=== PATIENT | male | born 1940 | race Caucasian/White ===

== ENCOUNTER 2019-01-08 02:27 | Inpatient (IN) ==
[2019-01-08 03:08] LABS: Basophils # (auto) 0.02 K/uL (0-0.2); Basophils % (auto) 0.3 %; Eosinophils % (auto) 1.5 %; Hematocrit (blood only) 41.9 % (42-52); Hemoglobin 14.8 g/dL (14.0-18.0); Immature Granulocytes # (auto) 0.01 K/uL (0.00-0.02); Immature Granulocytes % (auto) 0.2 %; Lymphocytes % (auto) 25.8 %; Mean Corpuscular Hemoglobin 32.6 pg (25-34); Mean Corpuscular Hgb Conc 35.3 g/dL (32-36); Mean Corpuscular Volume 92.3 fL (80-100); Mean Platelet Volume 10.9 fL (7.4-10.4); Monocytes # (auto) 0.41 K/uL (0.11-0.59); Monocytes % (auto) 6.2 %; Neutrophils # (auto) 4.34 K/uL (1.4-6.5); Platelet Count 177 K/uL (130-400); RDW Coefficient of Variation 14.5 % (11.5-14.5); RDW Standard Deviation 49.1 fL (36.4-46.3); Red Blood Count 4.54 M/uL (4.7-6.1); White Blood Count 6.58 K/uL (4.8-10.8)
[2019-01-08 03:29] LABS: Albumin Level 3.9 gm/dl (3.4-5.0); BUN Creatinine Ratio 12.3 (10-20); Calcium 8.3 mg/dl (8.5-10.1); Creatinine Clr Calc Pharmacy 79.8 ml/min; Est GFR (African American) 85.7; Est GFR (Non-African American) 73.9; Potassium 3.7 mmol/L (3.5-5.1)
[2019-01-08 03:39] LABS: Albumin Globulin Ratio 1.2 (0.9-2); Bilirubin,Total 0.7 mg/dl (0.2-1); Globulin 3.3 gm/dl (2.5-4.0); Thyroid Stimulating Hormone 4.41 uIu/ml (0.300-4.500); Total Protein 7.2 gm/dl (6.4-8.2)
[2019-01-08 03:50] LABS: Acetaminophen < 2 ug/ml (10-30); Salicylate < 1.7 mg/dl (2.8-20)
[2019-01-08 06:26] LABS: Appearance Urine Clear (Clear); Bilirubin Urine Negative (Negative); Blood Urine Negative (Negative); Color Urine Yellow; Glucose Urine UA Negative (Negative); Ketones Urine Negative (Negative); Leukocyte Esterase Urine Negative (Negative); Nitrite Urine Negative (Negative); Protein Urine Negative (Negative); Urobilinogen Urine Negative (Negative)
[2019-01-08 06:50] LABS: Amphetamines+Metham, Urine Neg (Neg); Barbiturates, Urine Neg (Neg); Benzodiazepine, Urine Neg (Neg); Cocaine, Urine Neg (Neg); MDMA (Ecstacy), Urine Neg (Neg); Methadone, Urine Neg (Neg); Opiate, Urine Neg (Neg); Phencyclidine, Urine Neg (Neg)
--- NOTE | 2019-01-08 07:06 | Emergency Department Note ---
Entered by Raymno Gutierrez acting as a scribe for ED Provider Note Name: Jeronimo Nguyen Age: 78 Arrives Via: Taxi Informant: Patient CC: Suicidal ideations HPI: A male arrives for evaluation of suicidal ideations. The patient states he does not want to live anymore. He notes he has not been taking his medications for a couple days. He denies anyone hurting him at home. He states he has been hearing voices. He states he has constant jaw pain for 9 years. He states he drank tonight. He denies drinking everyday and taking drugs. ROS: See above HPI for pertinent positives & negatives. A total of 10 systems reviewed and were otherwise negative. Past Medical History: Depression, Schizophrenia Past Surgical History: No pertinent past surgical history. Family History: Family history non-contributory Social History: Speaks Persian Home Medications: Clopidogrel, Duloxetine Hcl, Lisinopril, Pantoprazole, Quetiapine, Simethicone, Tramadol Allergies Amoxicillin, clindamycin, latex, aspirin, haloperidol, metronidazole, olanzapine, lithium Physical: Vitals: BP 178/107, P 87, R 20, O2 97%, Temp 97.7 Exam: GENERAL: Patient is anxious appearing and in no acute distress. Patient is agitated and has rapid pressured speech. Smells mildly of alcohol. EYES: No scleral icterus, unremarkable pupils. ENT: Mucous membranes moist, no nasal congestion. NECK: No masses appreciated, no meningismus, trachea is midline. RESPIRATORY: No dyspnea. Clear to auscultation and equal bilaterally. No wheeze, no rhonchi. CARDIOVASCULAR: Regular rate and rhythm. No murmurs, rubs, gallops appreciated. GASTROINTESTINAL: Abdomen soft, non-tender, no peritonitis. Bowel sounds positive. No masses appreciated. BACK: No midline tenderness, no CVA tenderness EXTREMITIES: Normal motion all extremities, no cyanosis, no edema. Venous stasis in bilateral legs. NEUROLOGIC: Alert and oriented, no acute motor or sensory deficits, no focal weakness, cranial nerves grossly intact. SKIN: No rash, no jaundice, no diaphoresis. PSYCH: Admits suicidal ideations, hallucinations, and depression. ED Course: Prior Medical Record, Triage/Nursing Notes, Medications, Allergies reviewed by Me Vital Signs: reviewed and remarkable for wnl after calming down Labs: Reviewed and remarkable for wnl Interventions: none Imaging: [facility] Radiologist interpretation reviewed by me: CT Head - Negative EKG: Per My Interpretation: Indication Psych Eval: 72 bpm with afib qtc 448. No previous for comparison. No ischemia appreciated. Blood pressure: Elevated - [place] to be Situation Course: 0233: The patient was evaluated in room A8, and a complete history and physical examination were performed. 0311: I reevaluated the patient. He told me he has a history of A-Fib. 0502: I reevaluated the patient. He is sleeping soundly. 0730: The patient was signed out to Dr. Chauhan. She will further manage the care of the patient. Disposition: Signed out to Dr Chauhan Differentials: Mood Disorder, Overdose, Infectious, Electrolyte Abnormality, Cardiac, Hepatic, Endocrine, Toxicologic, Neurologic, amongst other pathologies Entertained. Medical Decision Makin yr old male with acute agitation, depression and suicidal ideation. He is intoxicated and after a while here fell asleep. Work-up and labs unremarkable. He is in Afib and he states that he is chronically in afib. No on any anticoagulants other than plavix currently. He was signed out to Dr Chauhan pending psych Evaluations. Impression: Alcohol intoxication Acute depression The scribe's documentation has been prepared under my direction and personally reviewed by me in its entirety. I confirm that the note above accurately reflects all work, treatment, procedures, and medical decision making performed by me. Bijan Ivy MD Impression & Plan Alcohol intoxication, Acute depression Past Med/Surg History Medical History Depression Schizophrenia Family History Other Family history non-contributory Social History Feels Safe at Home: Yes Smoking Status: Current some day smoker Results & Data Vital Signs Vital Signs - 24 hr 01/08/19 02:44 01/08/19 04:22 01/08/19 05:40 Temperature 36.5 C Temperature Source Oral Sepsis Recent Fever Within 48 Hours No Sepsis Action Taken by Nursing No Action Required Pulse Rate 87 Pulse Rate [Right Finger] 81 84 Respiratory Rate 20 20 22 Respiratory Effort / Characteristics Non-Labored Respiratory Depth Normal Blood Pressure 178/107 H Blood Pressure [Right Arm] 129/67 131/71 Blood Pressure Mean 130 Blood Pressure Mean [Right Arm] 87 91 Blood Pressure Position [Right Arm] Left Lateral Lying Pulse Oximetry 97 95 94 Oxygen Delivery Method Room Air Room Air Room Air 01/08/19 07:41 Temperature Temperature Source Sepsis Recent Fever Within 48 Hours Sepsis Action Taken by Nursing Pulse Rate Pulse Rate [Right Finger] 101 H Respiratory Rate 24 Respiratory Effort / Characteristics Short of Breath SOB on Exertion Respiratory Depth Blood Pressure Blood Pressure [Right Arm] 179/86 H Blood Pressure Mean Blood Pressure Mean [Right Arm] 117 Blood Pressure Position [Right Arm] Lying Pulse Oximetry 95 Oxygen Delivery Method Room Air Home Medications Current Medication List: was personally reviewed by me Laboratory Data Attestation: I reviewed the patient's lab results. Result diagrams: 01/08/19 02:54 01/08/19 02:54 Lab Results 01/08/19 01/08/19 01/08/19 Range/Units 02:54 02:54 02:54 WBC 6.58 (4.8-10.8) K/uL RBC 4.54 L (4.7-6.1) M/uL Hgb 14.8 (14.0-18.0) g/dL Hct 41.9 L (42-52) % MCV 92.3 (80-100) fL MCH 32.6 (25-34) pg MCHC 35.3 (32-36) g/dL RDW Std Deviation 49.1 H (36.4-46.3) fL RDW Coeff of [place] 14.5 (11.5-14.5) % Plt Count 177 (130-400) K/uL MPV 10.9 H (7.4-10.4) fL Immature Gran % (Auto) 0.2 % Neut % (Auto) 66.0 % Lymph % (Auto) 25.8 % [place] % (Auto) 6.2 % Eos % (Auto) 1.5 % Baso % (Auto) 0.3 % Immature Gran # (Auto) 0.01 (0.00-0.02) K/uL Neut # (Auto) 4.34 (1.4-6.5) K/uL Lymph # (Auto) 1.70 (1.2-3.4) K/uL [place] # (Auto) 0.41 (0.11-0.59) K/uL Eos # (Auto) 0.10 (0-0.5) K/uL Baso # (Auto) 0.02 (0-0.2) K/uL Sodium 137 (136-145) mmol/L Potassium 3.7 (3.5-5.1) mmol/L Chloride 104 (98-107) mmol/L Carbon Dioxide 24 (21-32) mmol/L Anion Gap 9.0 (3-11) BUN 12 (7-18) mg/dl Creatinine 0.97 (0.6-1.4) mg/dl Est Cr Clr Drug Dosing 79.8 ml/min Est GFR ( Amer) 85.7 Est GFR (Non-Af Amer) 73.9 BUN/Creatinine Ratio 12.3 (10-20) Glucose 82 (70-99) mg/dl Calcium 8.3 L (8.5-10.1) mg/dl Total Bilirubin 0.7 (0.2-1) mg/dl AST 25 (15-37) U/L ALT 25 (12-78) U/L Alkaline Phosphatase 107 (45-117) U/L Total Protein 7.2 (6.4-8.2) gm/dl Albumin 3.9 (3.4-5.0) gm/dl Globulin 3.3 (2.5-4.0) gm/dl Albumin/Globulin Ratio 1.2 (0.9-2) TSH 4.410 (0.300-4.500) uIu/ml Urine Color Urine Appearance (Clear) Urine pH (4.5-7.5) Ur Specific [place] (1.000-1.030) Urine Protein (Negative) Urine Glucose (UA) (Negative) Urine Ketones (Negative) Urine Blood (Negative) Urine Nitrite (Negative) Urine Bilirubin (Negative) Urine Urobilinogen (Negative) Ur Leukocyte Esterase (Negative) Salicylates < 1.7 L (2.8-20) mg/dl Urine Opiates Screen (Neg) Ur Methadone, Qual (Neg) Acetaminophen < 2 L (10-30) ug/ml Urine Barbiturates (Neg) Ur Phencyclidine (PCP) (Neg) U Amphetamin/Meth Scrn (Neg) MDMA (Ecstasy) Screen (Neg) U Benzodiazepines Scrn (Neg) Ur Cocaine Metabolite (Neg) U Marijuana (THC) Screen (Neg) Ethyl Alcohol mg/dL (0-3) mg/dl 01/08/19 01/08/19 01/08/19 Range/Units 02:54 05:32 05:32 WBC (4.8-10.8) K/uL RBC (4.7-6.1) M/uL Hgb (14.0-18.0) g/dL Hct (42-52) % MCV (80-100) fL MCH (25-34) pg MCHC (32-36) g/dL RDW Std Deviation (36.4-46.3) fL RDW Coeff of [place] (11.5-14.5) % Plt Count (130-400) K/uL MPV (7.4-10.4) fL Immature Gran % (Auto) % Neut % (Auto) % Lymph % (Auto) % [place] % (Auto) % Eos % (Auto) % Baso % (Auto) % Immature Gran # (Auto) (0.00-0.02) K/uL Neut # (Auto) (1.4-6.5) K/uL Lymph # (Auto) (1.2-3.4) K/uL [place] # (Auto) (0.11-0.59) K/uL Eos # (Auto) (0-0.5) K/uL Baso # (Auto) (0-0.2) K/uL Sodium (136-145) mmol/L Potassium (3.5-5.1) mmol/L Chloride (98-107) mmol/L Carbon Dioxide (21-32) mmol/L Anion Gap (3-11) BUN (7-18) mg/dl Creatinine (0.6-1.4) mg/dl Est Cr Clr Drug Dosing ml/min Est GFR ( Amer) Est GFR (Non-Af Amer) BUN/Creatinine Ratio (10-20) Glucose (70-99) mg/dl Calcium (8.5-10.1) mg/dl Total Bilirubin (0.2-1) mg/dl AST (15-37) U/L ALT (12-78) U/L Alkaline Phosphatase (45-117) U/L Total Protein (6.4-8.2) gm/dl Albumin (3.4-5.0) gm/dl Globulin (2.5-4.0) gm/dl Albumin/Globulin Ratio (0.9-2) TSH (0.300-4.500) uIu/ml Urine Color Yellow Urine Appearance Clear (Clear) Urine pH 5.0 (4.5-7.5) Ur Specific [place] 1.010 (1.000-1.030) Urine Protein Negative (Negative) Urine Glucose (UA) Negative (Negative) Urine Ketones Negative (Negative) Urine Blood Negative (Negative) Urine Nitrite Negative (Negative) Urine Bilirubin Negative (Negative) Urine Urobilinogen Negative (Negative) Ur Leukocyte Esterase Negative (Negative) Salicylates (2.8-20) mg/dl Urine Opiates Screen Neg (Neg) Ur Methadone, Qual Neg (Neg) Acetaminophen (10-30) ug/ml Urine Barbiturates Neg (Neg) Ur Phencyclidine (PCP) Neg (Neg) U Amphetamin/Meth Scrn Neg (Neg) MDMA (Ecstasy) Screen Neg (Neg) U Benzodiazepines Scrn Neg (Neg) Ur Cocaine Metabolite Neg (Neg) U Marijuana (THC) Screen Neg (Neg) Ethyl Alcohol mg/dL 181.0 H (0-3) mg/dl Administered Medications Clopidogrel Bisulfate (Plavix) 75 mg PO [facility] Stop: 02/07/19 08:59 Last Admin: 01/08/19 08:32 Dose: 75 mg Documented by: [id number] Diltiazem HCl (Dilacor Xr) 240 mg PO [facility] Stop: 02/07/19 08:59 Last Admin: 01/08/19 08:31 Dose: 240 mg Documented by: [id number] Losartan Potassium (Cozaar) 100 mg PO [facility] Stop: 02/07/19 08:59 Last Admin: 01/08/19 08:32 Dose: 100 mg Documented by: [id number] Pantoprazole Sodium (Protonix) 40 mg PO [facility] Stop: 02/07/19 08:59 Last Admin: 01/08/19 08:33 Dose: 40 mg Documented by: [id number] Ranitidine HCl (Zantac) 300 mg PO [facility] Stop: 02/07/19 08:59 Last Admin: 01/08/19 08:33 Dose: 300 mg Documented by: [id number] Venlafaxine HCl (Effexor Extended Release) 150 mg PO [facility] Stop: 02/07/19 08:59 Last Admin: 01/08/19 08:32 Dose: 150 mg Documented by: [id number] Medical Decision Making Home Medications Current Medication List: was personally reviewed by me Laboratory Data Attestation: I reviewed the patient's lab results. Result diagrams: 01/08/19 02:54 01/08/19 02:54 Lab Results 01/08/19 01/08/19 01/08/19 Range/Units 02:54 02:54 02:54 WBC 6.58 (4.8-10.8) K/uL RBC 4.54 L (4.7-6.1) M/uL Hgb 14.8 (14.0-18.0) g/dL Hct 41.9 L (42-52) % MCV 92.3 (80-100) fL MCH 32.6 (25-34) pg MCHC 35.3 (32-36) g/dL RDW Std Deviation 49.1 H (36.4-46.3) fL RDW Coeff of [place] 14.5 (11.5-14.5) % Plt Count 177 (130-400) K/uL MPV 10.9 H (7.4-10.4) fL Immature Gran % (Auto) 0.2 % Neut % (Auto) 66.0 % Lymph % (Auto) 25.8 % [place] % (Auto) 6.2 % Eos % (Auto) 1.5 % Baso % (Auto) 0.3 % Immature Gran # (Auto) 0.01 (0.00-0.02) K/uL Neut # (Auto) 4.34 (1.4-6.5) K/uL Lymph # (Auto) 1.70 (1.2-3.4) K/uL [place] # (Auto) 0.41 (0.11-0.59) K/uL Eos # (Auto) 0.10 (0-0.5) K/uL Baso # (Auto) 0.02 (0-0.2) K/uL Sodium 137 (136-145) mmol/L Potassium 3.7 (3.5-5.1) mmol/L Chloride 104 (98-107) mmol/L Carbon Dioxide 24 (21-32) mmol/L Anion Gap 9.0 (3-11) BUN 12 (7-18) mg/dl Creatinine 0.97 (0.6-1.4) mg/dl Est Cr Clr Drug Dosing 79.8 ml/min Est GFR ( Amer) 85.7 Est GFR (Non-Af Amer) 73.9 BUN/Creatinine Ratio 12.3 (10-20) Glucose 82 (70-99) mg/dl Calcium 8.3 L (8.5-10.1) mg/dl Total Bilirubin 0.7 (0.2-1) mg/dl AST 25 (15-37) U/L ALT 25 (12-78) U/L Alkaline Phosphatase 107 (45-117) U/L Total Protein 7.2 (6.4-8.2) gm/dl Albumin 3.9 (3.4-5.0) gm/dl Globulin 3.3 (2.5-4.0) gm/dl Albumin/Globulin Ratio 1.2 (0.9-2) TSH 4.410 (0.300-4.500) uIu/ml Urine Color Urine Appearance (Clear) Urine pH (4.5-7.5) Ur Specific [place] (1.000-1.030) Urine Protein (Negative) Urine Glucose (UA) (Negative) Urine Ketones (Negative) Urine Blood (Negative) Urine Nitrite (Negative) Urine Bilirubin (Negative) Urine Urobilinogen (Negative) Ur Leukocyte Esterase (Negative) Salicylates < 1.7 L (2.8-20) mg/dl Urine Opiates Screen (Neg) Ur Methadone, Qual (Neg) Acetaminophen < 2 L (10-30) ug/ml Urine Barbiturates (Neg) Ur Phencyclidine (PCP) (Neg) U Amphetamin/Meth Scrn (Neg) MDMA (Ecstasy) Screen (Neg) U Benzodiazepines Scrn (Neg) Ur Cocaine Metabolite (Neg) U Marijuana (THC) Screen (Neg) Ethyl Alcohol mg/dL (0-3) mg/dl 01/08/19 01/08/19 01/08/19 Range/Units 02:54 05:32 05:32 WBC (4.8-10.8) K/uL RBC (4.7-6.1) M/uL Hgb (14.0-18.0) g/dL Hct (42-52) % MCV (80-100) fL MCH (25-34) pg MCHC (32-36) g/dL RDW Std Deviation (36.4-46.3) fL RDW Coeff of [place] (11.5-14.5) % Plt Count (130-400) K/uL MPV (7.4-10.4) fL Immature Gran % (Auto) % Neut % (Auto) % Lymph % (Auto) % [place] % (Auto) % Eos % (Auto) % Baso % (Auto) % Immature Gran # (Auto) (0.00-0.02) K/uL Neut # (Auto) (1.4-6.5) K/uL Lymph # (Auto) (1.2-3.4) K/uL [place] # (Auto) (0.11-0.59) K/uL Eos # (Auto) (0-0.5) K/uL Baso # (Auto) (0-0.2) K/uL Sodium (136-145) mmol/L Potassium (3.5-5.1) mmol/L Chloride (98-107) mmol/L Carbon Dioxide (21-32) mmol/L Anion Gap (3-11) BUN (7-18) mg/dl Creatinine (0.6-1.4) mg/dl Est Cr Clr Drug Dosing ml/min Est GFR ( Amer) Est GFR (Non-Af Amer) BUN/Creatinine Ratio (10-20) Glucose (70-99) mg/dl Calcium (8.5-10.1) mg/dl Total Bilirubin (0.2-1) mg/dl AST (15-37) U/L ALT (12-78) U/L Alkaline Phosphatase (45-117) U/L Total Protein (6.4-8.2) gm/dl Albumin (3.4-5.0) gm/dl Globulin (2.5-4.0) gm/dl Albumin/Globulin Ratio (0.9-2) TSH (0.300-4.500) uIu/ml Urine Color Yellow Urine Appearance Clear (Clear) Urine pH 5.0 (4.5-7.5) Ur Specific [place] 1.010 (1.000-1.030) Urine Protein Negative (Negative) Urine Glucose (UA) Negative (Negative) Urine Ketones Negative (Negative) Urine Blood Negative (Negative) Urine Nitrite Negative (Negative) Urine Bilirubin Negative (Negative) Urine Urobilinogen Negative (Negative) Ur Leukocyte Esterase Negative (Negative) Salicylates (2.8-20) mg/dl Urine Opiates Screen Neg (Neg) Ur Methadone, Qual Neg (Neg) Acetaminophen (10-30) ug/ml Urine Barbiturates Neg (Neg) Ur Phencyclidine (PCP) Neg (Neg) U Amphetamin/Meth Scrn Neg (Neg) MDMA (Ecstasy) Screen Neg (Neg) U Benzodiazepines Scrn Neg (Neg) Ur Cocaine Metabolite Neg (Neg) U Marijuana (THC) Screen Neg (Neg) Ethyl Alcohol mg/dL 181.0 H (0-3) mg/dl MDM Narrative Discharge Plan Visit Data Chief Complaint: Mental Health Evaluation Stated Complaint: MENTAL PROBLEM ED Provider: Bijan Ivy Discharge Problem: Alcohol intoxication, Acute depression Forms Stand Alone Forms: My [facility], Suicide Prevention Resources Prescriptions Prescriptions: No Action ranitidine HCl 300 mg tablet 300 mg PO DAILY RF: 0 diltiazem HCl [Cartia XT] 240 mg capsule,extended release 24hr 240 mg PO DAILY RF: 0 venlafaxine 150 mg capsule,extended release 24hr 150 mg PO DAILY RF: 0 clopidogrel 75 mg tablet 75 mg PO DAILY RF: 0 pantoprazole 40 mg tablet,delayed release (DR/EC) 40 mg PO DAILY RF: 0 losartan 100 mg tablet 100 mg PO DAILY RF: 0 quetiapine 400 mg tablet 400 mg PO HS RF: 0 Discharge Problem: Alcohol intoxication Qualifiers: Complication of substance-induced condition: with unspecified complication Qualified Code(s): F10.929 - Alcohol use, unspecified with intoxication, unspecified The scribe's documentation has been prepared under my direction and personally reviewed by me in its entirety. I confirm that the note above accurately reflects all work, treatment, procedures, and medical decision making performed by me.
[2019-01-08 07:42] VITALS: O2SAT 95
--- NOTE | 2019-01-08 08:32 | CT Scan Report ---
CT SCAN OF THE BRAIN WITHOUT IV CONTRAST CLINICAL HISTORY: Depression. Hallucinations. Suicidal ideation. COMPARISON STUDY: No priors. TECHNIQUE: Unenhanced axial CT scan of the brain is performed from the vertex to the skull base. A do se lowering technique was utilized adhering to the principles of ALARA. The patient was scanned twice due to motion artifact. CT DOSE: 1534.13 mGy.cm FINDINGS: Brain parenchyma: There are age-related involutional changes noting moderate subcortical and periven tricular microangiopathic change. There is no hemorrhage, mass effect, or evidence of acute territori al ischemia by CT criteria. Alfonso-white matter differentiation is preserved. No extra-axial fluid angel ection is seen. Ventricles, sulci, cisterns: Prominent secondary to involutional change. Intracranial vasculature: There is atherosclerotic calcification of the cavernous carotid arteries. Calvarium: The calvarium appears intact. Deformity of the nasal bones suggests remote trauma. Sinuses and mastoids: There is a 10 mm retention cyst in the left maxillary antrum. The remaining vis ualized paranasal sinuses are clear. The mastoid air cells are well pneumatized. Orbits: The bony orbits are grossly intact. The left globe is markedly atrophic. IMPRESSION: There is no hemorrhage, mass effect, or evidence of acute territorial ischemia by CT crit virgil noting a motion compromised examination. Electronically signed by: Julio Morfin M.D. 01/08/2019 8:31 AM
[2019-01-08] MEDS ORDERED: VENLAFAXINE HCL XR 150 MG CAPXR PO SCH (09:00)
[2019-01-08] MEDS ORDERED: PANTOprazole 40 MG TAB PO SCH (09:00)
[2019-01-08] MEDS ORDERED: CLOPIDOGREL BISULFATE 75 MG TAB PO SCH (09:00)
[2019-01-08] MEDS ORDERED: LOSARTAN POTASSIUM 50 MG TAB PO SCH (09:00)
[2019-01-08] MEDS ORDERED: SODIUM CHLORIDE 0.65% NA SOLN 45 ML (OCEAN) PRN (10:51)
[2019-01-08] MEDS ORDERED: ACETAMINOPHEN 325 MG TAB PO PRN (10:51)
[2019-01-08] MEDS ORDERED: MAGNESIUM HYDROXIDE SUSP 30 ML UDC PO PRN (10:51)
[2019-01-08] MEDS ORDERED: ALUMINUM/MAGNESIUM SUSP 30 ML UDC PO PRN (10:51)
--- NOTE | 2019-01-08 11:32 | Consultation ---
Date of Consultation January 08, 2019 Assessment & Plan (1) Chronic atrial fibrillation: has had afib for over a year continue on Diltiazem 240mg daily for rate control, rates in 70's in the ED continue on Plavix 75mg daily recommend that he follow up with his PCP after discharge from [facility] overall he is stable at this time for admission to [facility] there is no reason at this time to follow him daily do not hesitate to contact hospitalist group if his medical status changes at all (2) Hypertension: continue on Diltiazem and Losartan BMP shows renal function stable (3) Schizophrenia: management per psychiatry (4) Depression: with suicidal ideation, agreeable to inpatient psychiatry treatment (5) Loose stools: just started, perhaps due to alcohol intoxication would monitor for now could use Imodium PRN (6) GERD (gastroesophageal reflux disease): continue Protonix and Ranitidine History of Present Illness Requesting Physician: Dr. Pratt Reason for Consultation: Atrial fibrillation, medical management Attending Physician: Dr. Pratt History of Present Illness 78 yo male with history of schizoaffective disorder, not from this area, arrived to the ED via taxi because he needed help. He was complaining of suicidal ideation, had not been taking his medications. He was worked up in the ED with CT head that was normal and BMP, CBC that were normal. He was considered an appropriate admission for inpatient behavioral health. EKG showed that he was in atrial fibrillation. Request made by psychiatry to see the patient prior to their admission to ensure that he is medically stable. The patient says that he has felt fine physically the past few days, no major changes. His main complaints are all psychological. He is a reasonable historian. He says that he was diagnosed with atrial fibrillation about a year ago. He does not have a strategic communications manager in the [facility] that he follows with. He sees a PCP with the [facility]. He is rate controlled on Diltiazem. EKG shows rate in the 70's. He takes Plavix for a history of s troke. Given his history of stroke and age it would be reasonable to expect him to be on systemic anticoagulation. He says that he has never been on a blood thinner to his knowledge. Certainly there may be a reason for him to not be on one but I do not have access to his records. Given his medication list it is also clear that he has a history of GERD and HTN. He says his appetite has been a little diminished recently with his poor mood. His weight has been stable. He denies having any chest pain or pressure, no dyspnea, no palpitations. No abdominal pain, no nausea, he says that he had some loose stools this morning but otherwise he has been moving bowels regularly. No rashes or other skin complaints. He is agreeable to being admitted to behavioral health and overall was pleasant and cooperative during my visit. Allergies Allergy/AdvReac Type Severity Reaction Status Date / Time amoxicillin Allergy Mild RASH Verified 01/08/19 04:05 clindamycin Allergy Mild RASH Verified 01/08/19 04:05 latex Allergy Mild RASH Verified 01/08/19 04:05 aspirin Allergy Unknown Unknown Verified 01/08/19 04:05 Penicillins Allergy Unknown RASH FROM Verified 01/08/19 04:05 AMOXICILLIN, BUT PCN IS OK haloperidol AdvReac Intermediate PT STATES Verified 01/08/19 04:05 HE LOCKS UP metronidazole AdvReac Mild ABDOM PAIN Verified 01/08/19 04:05 &CRAMPS olanzapine AdvReac Mild PANCREATITI Verified 01/08/19 04:05 S lithium AdvReac Unknown SENSITIVE Verified 01/08/19 04:05 TO IT BECOMES TOXIC Home Medications Home Medications Medication Instructions Recorded Confirmed Type clopidogrel 75 mg PO DAILY 01/08/19 01/08/19 History diltiazem HCl [Cartia XT] 240 mg PO DAILY 01/08/19 01/08/19 History losartan 100 mg PO DAILY 01/08/19 01/08/19 History pantoprazole 40 mg PO DAILY 01/08/19 01/08/19 History quetiapine 400 mg PO HS 01/08/19 01/08/19 History ranitidine HCl 300 mg PO DAILY 01/08/19 01/08/19 History venlafaxine 150 mg PO DAILY 01/08/19 01/08/19 History Patient History Medical History Chronic atrial fibrillation Depression GERD (gastroesophageal reflux disease) Hypertension Loose stools Schizophrenia Suicidal ideation Family History Other Family history non-contributory Social History Feels Safe at Home: Yes Smoking Status: Current some day smoker Review of Systems Review of Systems: All systems reviewed & are unremarkable except as noted in HPI & below Psychiatric: + depression, + suicidal ideation and + anxiety Physical Exam Constitutional: WD/WN, vitals as above + overweight Eyes: PERRL, conjunctivae normal, anicteric sclerae ENMT: external ear and nose normal, oropharynx normal Neck: trachea midline, no thyromegaly Respiratory: normal respiratory effort, lungs clear to auscultation Cardiovascular: Rate/Rhythm: regular rate and + irregularly irregular Heart Sounds: normal S1 and normal S2; no murmur Extremities: normal capillary refill; no edema Gastrointestinal (Abdomen): normal bowel sounds, soft, nontender, no hepatosplenomegaly Musculoskeletal: no cyanosis or clubbing, extremities motor strength 5/5 Skin: no rashes, warm and dry Neurologic: patellar DTR's 2+ bilat, sensation intact and PERRL, EOMI, accommodation nl, no face palsy, no dysarthria (some muscle twitching periodically) Psychiatric: Orientation: alert, oriented x 3 and cooperative Apperance: + disheveled Eye Contact: + fair eye contact Speech: normal rate/rhythm/volume of speech Affect: + depressed affect Mood: + depressed mood Lymphatic: no cervical or axillary lymphadenopathy Results & Data Vital Signs (Past 12 Hours) Vital Signs Temp Pulse Pulse Resp BP BP Pulse Ox 01/08/19 10:24 85 22 149/75 H 95 01/08/19 07:41 101 H 24 179/86 H 95 01/08/19 05:40 84 22 131/71 94 01/08/19 04:22 81 20 129/67 95 01/08/19 02:44 36.5 C 87 20 178/107 H 97 Laboratory Results Laboratory Results - last 24 hr 01/08/19 01/08/19 01/08/19 02:54 02:54 02:54 WBC 6.58 RBC 4.54 L Hgb 14.8 Hct 41.9 L MCV 92.3 MCH 32.6 MCHC 35.3 RDW Std Deviation 49.1 H RDW Coeff of Hayden 14.5 Plt Count 177 MPV 10.9 H Immature Gran % (Auto) 0.2 Neut % (Auto) 66.0 Lymph % (Auto) 25.8 Pershing % (Auto) 6.2 Eos % (Auto) 1.5 Baso % (Auto) 0.3 Immature Gran # (Auto) 0.01 Neut # (Auto) 4.34 Lymph # (Auto) 1.70 Pershing # (Auto) 0.41 Eos # (Auto) 0.10 Baso # (Auto) 0.02 Sodium 137 Potassium 3.7 Chloride 104 Carbon Dioxide 24 Anion Gap 9.0 BUN 12 Creatinine 0.97 Est Cr Clr Drug Dosing 79.8 Est GFR ( Amer) 85.7 Est GFR (Non-Af Amer) 73.9 BUN/Creatinine Ratio 12.3 Glucose 82 Calcium 8.3 L Total Bilirubin 0.7 AST 25 ALT 25 Alkaline Phosphatase 107 Total Protein 7.2 Albumin 3.9 Globulin 3.3 Albumin/Globulin Ratio 1.2 TSH 4.410 Urine Color Urine Appearance Urine pH Ur Specific [place] Urine Protein Urine Glucose (UA) Urine Ketones Urine Blood Urine Nitrite Urine Bilirubin Urine Urobilinogen Ur Leukocyte Esterase Salicylates < 1.7 L Urine Opiates Screen Ur Methadone, Qual Acetaminophen < 2 L Urine Barbiturates Ur Phencyclidine (PCP) U Amphetamin/Meth Scrn MDMA (Ecstasy) Screen U Benzodiazepines Scrn Ur Cocaine Metabolite U Marijuana (THC) Screen Ethyl Alcohol mg/dL 01/08/19 01/08/19 01/08/19 02:54 05:32 05:32 WBC RBC Hgb Hct MCV MCH MCHC RDW Std Deviation RDW Coeff of Hayden Plt Count MPV Immature Gran % (Auto) Neut % (Auto) Lymph % (Auto) Pershing % (Auto) Eos % (Auto) Baso % (Auto) Immature Gran # (Auto) Neut # (Auto) Lymph # (Auto) [place]hing # (Auto) Eos # (Auto) Baso # (Auto) Sodium Potassium Chloride Carbon Dioxide Anion Gap BUN Creatinine Est Cr Clr Drug Dosing Est GFR ( Amer) Est GFR (Non-Af Amer) BUN/Creatinine Ratio Glucose Calcium Total Bilirubin AST ALT Alkaline Phosphatase Total Protein Albumin Globulin Albumin/Globulin Ratio TSH Urine Color Yellow Urine Appearance Clear Urine pH 5.0 Ur Specific [place] 1.010 Urine Protein Negative Urine Glucose (UA) Negative Urine Ketones Negative Urine Blood Negative Urine Nitrite Negative Urine Bilirubin Negative Urine Urobilinogen Negative Ur Leukocyte Esterase Negative Salicylates Urine Opiates Screen Neg Ur Methadone, Qual Neg Acetaminophen Urine Barbiturates Neg Ur Phencyclidine (PCP) Neg U Amphetamin/Meth Scrn Neg MDMA (Ecstasy) Screen Neg U Benzodiazepines Scrn Neg Ur Cocaine Metabolite Neg U Marijuana (THC) Screen Neg Ethyl Alcohol mg/dL 181.0 H Medications Administered Current Inpatient Medications Acetaminophen (Tylenol) 650 mg PO Q4H PRN PRN Reason: Headache or Minor Fever Stop: 02/07/19 10:50 Al Hydrox/Mg Hydrox/Simethicone (Maalox) 30 ml PO Q4H PRN PRN Reason: GI Upset Stop: 02/07/19 10:50 Clopidogrel Bisulfate (Plavix) 75 mg PO DAILY LANDON Stop: 02/08/19 08:59 Diltiazem HCl (Cardizem Cd) 240 mg PO DAILY LANDON Stop: 02/08/19 08:59 Hydroxyzine HCl (Vistaril) 25 mg PO Q4H PRN PRN Reason: Anxiety Stop: 02/07/19 10:50 Hydroxyzine HCl (Vistaril) 50 mg PO HSZ PRN PRN Reason: Insomnia Stop: 02/07/19 10:50 Losartan Potassium (Cozaar) 100 mg PO DAILY LANDON Stop: 02/08/19 08:59 Magnesium Hydroxide (Milk Of Magnesia) 30 ml PO DAILY PRN PRN Reason: Constipation Stop: 02/07/19 10:50 Pantoprazole Sodium (Protonix) 40 mg PO DAILY LANDON Stop: 02/08/19 08:59 Quetiapine Fumarate (Seroquel) 400 mg PO HS LANDON Stop: 02/07/19 20:59 Ranitidine HCl (Zantac) 300 mg PO DAILY LANDON Stop: 02/08/19 08:59 Sodium Chloride ([place] Nasal) 1 - 2 sprays NA PRN PRN PRN Reason: Nasal Dryness/Congestion Stop: 02/07/19 10:50 Venlafaxine HCl (Effexor Extended Release) 150 mg PO DAILY LANDON Stop: 02/08/19 08:59 PG Care Time/CCT Total # of Minutes Spent Total Time Spent: 35 Total Time Spent with Patient: Total time spent is greater than 50% in coordination of care (as documented) at patient's floor/unit and/or counseling patient: Critical Care Time: No
[2019-01-08] MEDS ORDERED: GABAPENTIN 800MG ALCOHOL WITHDRAWAL LOAD PO STA (12:02)
[2019-01-08] MEDS ORDERED: GABAPENTIN 600MG ALCOHOL WITHDRAWAL LOAD PO STA (12:02)
[2019-01-08] MEDS ORDERED: LORazepam 1 MG TAB PO PRN (12:02)
[2019-01-08] MEDS ORDERED: GABAPENTIN 600 MG TAB PO ONE (12:02)
--- NOTE | 2019-01-08 12:45 | History & Physical ---
Date of Service January 08, 2019 Impression / Recommendations (1) Schizoaffective disorder: 01/08 The patient was admitted to the [facility] ([facility]) on q15 min checks (behavioral with suicide precautions) for safety. The patient will participate in group, recreational, and milieu therapies and will be offered additional individual and family sessions as clinically appropriate. Risks/benefits/alternatives were reviewed re: antipsychotics for mood and/or psychosis. Discussion included but was not limited to metabolic side effects, risks of TD and suicidal thoughts. Abnormal motor movements at baseline. Hold order for fasting glucose and lipid panel ordered for baseline monitoring as reports having multiple in past 6 months. Restart Seroquel 200 mg this hs and monitor movements. Continue Effexor XR 150 mg qam, already received dose in ED and desires to start at previous dose rather than retitrate. (2) Alcohol intoxication: 01/08--Brief intervention was offered and accepted. Intervention was greater than 5 min in length and included assessing readiness to quit, advice on how to reduce or abstain from alcohol, and to set a specific goal for this hospitalization. mud jack nozzle worker will also assist in anticipating barriers to sobriety and in problem-solving for solutions to those problems while arranging for referral to appropriate treatment. The patient reports he does not drink when stable on his medications which he came here to resume. He plans to continue with , states he does not have a sponsor. The patient is advised to abstain from alcohol consumption due to depressant effects and risk of interaction with prescription medications. AWSS protocol with lowest loading dose of Neurontin as I do not want sedation to impair gait further than abnormal motor movements already are. Complication of substance-induced condition: with unspecified complication Qualified Code(s): F10.929 - Alcohol use, unspecified with intoxication, unspecified Risk Factors Assessment Do You Have Access To A Gun?: No Protective Factors Assessment Employed: No Psychiatric History Identifying Data GRACY PAREDES is a 78-year-old M who currently lives in [facility] alone, has a history of schizoaffective disorder and multiple psychiatric admissions, and was admitted on 01/08/19 11:22 on a 201 voluntary commitment for [facility]. Chief Complaint "I didn't take meds for 5 days and then I had a lot of beer, now I hear a man's voice to harm myself". History of Present Illness Patient last admitted to [facility] in 2009. He reports last psych admission for jayshree was 2 months ago at [facility] as no hospital bed in [facility]. He states that he ran out of medication 5 days ago, seemingly as missed sessions with [facility] as "I don't like the tv doctor", referring to telepsych. He is between case mgr and it's unclear how well he has been attending to his physical health. He denies drinking regularly but estimates he ingested 20 beers in the last 2 days. He describes some feelings of isolation as only 1 friend in [place] and sister doesn't talk to him for some time. He reports taking bus to [place] [employer] for something to do and relapsing on ETOH, longest period of sobriety is "a few months". He understands that his medical meds are important given dx of a fib within the past year but was non-compliant with those meds as well. He was tachy and elevated BP on presentation to the ED, medical work up was benign and Dr. Phelan cleared him as well prior to arrival on the unit since rate controlled and resuming medications. He states that for past few days he hears a man's voice telling him to harm himself but is clear that he is not depressed and doesn't want to act on those thoughts. He has significant restlessness, likely Parkinsonian or mild TD at baseline with superimposed withdrawal dyskinesia though he attributes some of the tremor to ETOH. He describes a rather remote hx of DTs around "11/16" at which time he was hospitalized for delirium at [facility] on urgent transfer from rehab at [place]. Past Psychiatric History Previous Psych History: >50 hospitalizations, 3 prior [facility], most recent as above patients states current meds were working well until he discontinued them and is unable to relate past med trials. Last stay 2009 he was on Cymbalta and Seroquel so unlikely meds have been changed for some time. 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, needs replaced Allergies Allergy/AdvReac Type Severity Reaction Status Date / Time amoxicillin Allergy Mild RASH Verified 01/08/19 04:05 clindamycin Allergy Mild RASH Verified 01/08/19 04:05 latex Allergy Mild RASH Verified 01/08/19 04:05 aspirin Allergy Unknown Unknown Verified 01/08/19 04:05 Penicillins Allergy Unknown RASH FROM Verified 01/08/19 04:05 AMOXICILLIN, BUT PCN IS OK haloperidol AdvReac Intermediate PT STATES Verified 01/08/19 04:05 HE LOCKS UP metronidazole AdvReac Mild ABDOM PAIN Verified 01/08/19 04:05 &CRAMPS olanzapine AdvReac Mild PANCREATITI Verified 01/08/19 04:05 S lithium AdvReac Unknown SENSITIVE Verified 01/08/19 04:05 TO IT BECOMES TOXIC Home Medications Home Medications Medication Instructions Recorded Confirmed Type clopidogrel 75 mg PO DAILY 01/08/19 01/08/19 History diltiazem HCl [Cartia XT] 240 mg PO DAILY 01/08/19 01/08/19 History losartan 100 mg PO DAILY 01/08/19 01/08/19 History pantoprazole 40 mg PO DAILY 01/08/19 01/08/19 History quetiapine 400 mg PO HS 01/08/19 01/08/19 History ranitidine HCl 300 mg PO DAILY 01/08/19 01/08/19 History venlafaxine 150 mg PO DAILY 01/08/19 01/08/19 History Family History Family Mental Health History Comment: schizophrenia in mother by previous record Alcohol History Hx of Alcohol Use Over the Past 12 Months: Yes (drinking yesterday, states he "seldom" drinks) Smoking Use Smoking Status: Current some day smoker Substance History Hx of Prescription Med Misuse Over the Past 12 Months: No Hx of Over the Counter Med Misuse Over the Past 12 Months: No Hx of Inhalent Misuse Over the Past 12 Months: No Hx of Organic Substance Use Over the Past 12 Months: No Hx of Illegal Substances/Street Drug Use Over Past 12 Months: No Personal History Living Arrangements: Apartment Highest Grade Completed: High School Graduate Employment Status: Disabled Marital Status: Single Number Of Children: none Current Legal Problems: No Hx Traumatic Life Events: No Patient History Medical History Chronic atrial fibrillation Depression GERD (gastroesophageal reflux disease) Hypertension Loose stools Schizophrenia Suicidal ideation Family History Other Family history non-contributory Social History Feels Safe at Home: Yes Smoking Status: Current some day smoker Review of Systems Review of Systems: All systems reviewed & are unremarkable except as noted in HPI & below 2 loose stools Physical Exam Mental Examination: A physical exam was performed in the ED by Dr. Chauhan and Dr. Phelan for the purposes of medical clearance. I accept that physical as correct and adequate for the purposes of the inpatient physical exam. Psychiatric: Orientation: alert Apperance: appeared stated age Eye Contact: + fair eye contact Motor Behavior: + tremor dyskinesia (oral and lower extremity) poorly articulated Affect: + anxious affect Mood: + depr essed mood Thought Process: + circumstantial thought process and + concrete thought process Thought Content: + preoccupation; no delusions Suicidal Thoughts: denies suicidal thoughts Homicidal Thoughts: denies homicidal thoughts Hallucinations: + auditory hallucinations (command to harm self, able to self control) Cognition: + remote memory not intact Estimated Intelligence: consistent with education level Insight: + limited insight Judgement: + limited judgement Vital Signs (Past 24 Hours): Last Vital Signs Temp 36.5 C 01/08/19 02:44 Pulse 85 01/08/19 10:24 Resp 22 01/08/19 10:24 BP 149/75 H 01/08/19 10:24 Pulse Ox 95 01/08/19 10:24 Results & Data Laboratory Results Laboratory Results - last 24 hr 01/08/19 01/08/19 01/08/19 02:54 02:54 02:54 WBC 6.58 RBC 4.54 L Hgb 14.8 Hct 41.9 L MCV 92.3 MCH 32.6 MCHC 35.3 RDW Std Deviation 49.1 H RDW Coeff of Hayden 14.5 Plt Count 177 MPV 10.9 H Immature Gran % (Auto) 0.2 Neut % (Auto) 66.0 Lymph % (Auto) 25.8 [place] % (Auto) 6.2 Eos % (Auto) 1.5 Baso % (Auto) 0.3 Immature Gran # (Auto) 0.01 Neut # (Auto) 4.34 Lymph # (Auto) 1.70 [place] # (Auto) 0.41 Eos # (Auto) 0.10 Baso # (Auto) 0.02 Sodium 137 Potassium 3.7 Chloride 104 Carbon Dioxide 24 Anion Gap 9.0 BUN 12 Creatinine 0.97 Est Cr Clr Drug Dosing 79.8 Est GFR ( Amer) 85.7 Est GFR (Non-Af Amer) 73.9 BUN/Creatinine Ratio 12.3 Glucose 82 Calcium 8.3 L Total Bilirubin 0.7 AST 25 ALT 25 Alkaline Phosphatase 107 Total Protein 7.2 Albumin 3.9 Globulin 3.3 Albumin/Globulin Ratio 1.2 Folate TSH 4.410 Urine Color Urine Appearance Urine pH Ur Specific [place] Urine Protein Urine Glucose (UA) Urine Ketones Urine Blood Urine Nitrite Urine Bilirubin Urine Urobilinogen Ur Leukocyte Esterase Salicylates < 1.7 L Urine Opiates Screen Ur Methadone, Qual Acetaminophen < 2 L Urine Barbiturates Ur Phencyclidine (PCP) U Amphetamin/Meth Scrn MDMA (Ecstasy) Screen U Benzodiazepines Scrn Ur Cocaine Metabolite U Marijuana (THC) Screen Ethyl Alcohol mg/dL 01/08/19 01/08/19 01/08/19 02:54 05:32 05:32 WBC RBC Hgb Hct MCV MCH MCHC RDW Std Deviation RDW Coeff of Hayden Plt Count MPV Immature Gran % (Auto) Neut % (Auto) Lymph % (Auto) [place] % (Auto) Eos % (Auto) Baso % (Auto) Immature Gran # (Auto) Neut # (Auto) Lymph # (Auto) [place] # (Auto) Eos # (Auto) Baso # (Auto) Sodium Potassium Chloride Carbon Dioxide Anion Gap BUN Creatinine Est Cr Clr Drug Dosing Est GFR ( Amer) Est GFR (Non-Af Amer) BUN/Creatinine Ratio Glucose Calcium Total Bilirubin AST ALT Alkaline Phosphatase Total Protein Albumin Globulin Albumin/Globulin Ratio Folate TSH Urine Color Yellow Urine Appearance Clear Urine pH 5.0 Ur Specific [place] 1.010 Urine Protein Negative Urine Glucose (UA) Negative Urine Ketones Negative Urine Blood Negative Urine Nitrite Negative Urine Bilirubin Negative Urine Urobilinogen Negative Ur Leukocyte Esterase Negative Salicylates Urine Opiates Screen Neg Ur Methadone, Qual Neg Acetaminophen Urine Barbiturates Neg Ur Phencyclidine (PCP) Neg U Amphetamin/Meth Scrn Neg MDMA (Ecstasy) Screen Neg U Benzodiazepines Scrn Neg Ur Cocaine Metabolite Neg U Marijuana (THC) Screen Neg Ethyl Alcohol mg/dL 181.0 H 01/08/19 12:12 WBC RBC Hgb Hct MCV MCH MCHC RDW Std Deviation RDW Coeff of Hayden Plt Count MPV Immature Gran % (Auto) Neut % (Auto) Lymph % (Auto) Coles % (Auto) Eos % (Auto) Baso % (Auto) Immature Gran # (Auto) Neut # (Auto) Lymph # (Auto) Coles # (Auto) Eos # (Auto) Baso # (Auto) Sodium Potassium Chloride Carbon Dioxide Anion Gap BUN Creatinine Est Cr Clr Drug Dosing Est GFR ( Amer) Est GFR (Non-Af Amer) BUN/Creatinine Ratio Glucose Calcium Total Bilirubin AST ALT Alkaline Phosphatase Total Protein Albumin Globulin Albumin/Globulin Ratio Folate Pending TSH Urine Color Urine Appearance Urine pH Ur Specific [place] Urine Protein Urine Glucose (UA) Urine Ketones Urine Blood Urine Nitrite Urine Bilirubin Urine Urobilinogen Ur Leukocyte Esterase Salicylates Urine Opiates Screen Ur Methadone, Qual Acetaminophen Urine Barbiturates Ur Phencyclidine (PCP) U Amphetamin/Meth Scrn MDMA (Ecstasy) Screen U Benzodiazepines Scrn Ur Cocaine Metabolite U Marijuana (THC) Screen Ethyl Alcohol mg/dL Current Inpatient Medications Current Inpatient Medications: Current Inpatient Medications Acetaminophen (Tylenol) 650 mg PO Q4H PRN PRN Reason: Headache or Minor Fever Stop: 02/07/19 10:50 Al Hydrox/Mg Hydrox/Simethicone (Maalox) 30 ml PO Q4H PRN PRN Reason: GI Upset Stop: 02/07/19 10:50 Clopidogrel Bisulfate (Plavix) 75 mg PO DAILY LANDON Stop: 02/08/19 08:59 Diltiazem HCl (Cardizem Cd) 240 mg PO DAILY LANDON Stop: 02/08/19 08:59 Gabapentin (Gabapentin 800mg Alcohol Withdrawal Load) 1 ea PO NOW STA; Protocol Stop: 01/08/19 12:03 Gabapentin (Neurontin) 100 mg PO Q6H LANDON Stop: 01/09/19 00:05 Gabapentin (Neurontin) 200 mg PO Q24H LANDON Stop: 01/11/19 12:03 Gabapentin (Neurontin) 600 mg PO NOW ONE Stop: 01/08/19 12:03 Gabapentin (Neurontin) 600 mg PO Q24H LANDON Stop: 01/09/19 12:03 Gabapentin (Gabapentin 600mg Alcohol Withdrawal Load) 1 ea PO NOW STA; Protocol Stop: 01/08/19 12:03 Gabapentin (Neurontin) 400 mg PO Q24H LANDON Stop: 01/10/19 12:03 Hydroxyzine HCl (Vistaril) 25 mg PO Q4H PRN PRN Reason: Anxiety Stop: 02/07/19 10:50 Hydroxyzine HCl (Vistaril) 50 mg PO HSZ PRN PRN Reason: Insomnia Stop: 02/07/19 10:50 Lorazepam (Ativan) 1 mg PO ONE PRN; Protocol PRN Reason: EtoH Withdrawal AWSS 6-10 Losartan Potassium (Cozaar) 100 mg PO DAILY LANDON Stop: 02/08/19 08:59 Magnesium Hydroxide (Milk Of Magnesia) 30 ml PO DAILY PRN PRN Reason: Constipation Stop: 02/07/19 10:50 Pantoprazole Sodium (Protonix) 40 mg PO DAILY LANDON Stop: 02/08/19 08:59 Quetiapine Fumarate (Seroquel) 200 mg PO HS [place] Stop: 02/07/19 21:59 Ranitidine HCl (Zantac) 300 mg PO DAILY LANDON Stop: 02/08/19 08:59 Sodium Chloride ([place] Nasal) 1 - 2 sprays NA PRN PRN PRN Reason: Nasal Dryness/Congestion Stop: 02/07/19 10:50 Venlafaxine HCl (Effexor Extended Release) 150 mg PO DAILY LANDON Stop: 02/08/19 08:59
--- NOTE | 2019-01-08 15:26 | Emergency Department Note ---
ED Visit Note I received this patient in signout at the change of shift from Dr. Ivy, pending a more sober state and mental health evaluation. Patient was evaluated by the mental health case briefer and referred to 3 S. He has been accepted on a 201. Please refer to previous documentation for further details of the history, physical and visit. . : Alcohol intoxication Qualifiers: Complication of substance-induced condition: with unspecified complication Qualified Code(s): F10.929 - Alcohol use, unspecified with intoxication, unspecified
[2019-01-08] MEDS: GABAPENTIN 100 MG CAP PO SCH (17:19)
[2019-01-08] MEDS ORDERED: INFLUENZA ADMINISTRATION CHARGE ONE (18:30)
[2019-01-08] MEDS ORDERED: INFLUENZA VACCINE HIGH DOSE 65+ 0.5 ML SYR IM ONE (18:30)
[2019-01-08] MEDS ORDERED: QUETIAPINE FUMARATE 200 MG TAB PO SCH ×3 (21:00→22:00)
[2019-01-09] MEDS: GABAPENTIN 100 MG CAP PO SCH (00:48)
[2019-01-09] MEDS: CLOPIDOGREL BISULFATE 75 MG TAB PO SCH (08:17)
[2019-01-09] MEDS: VENLAFAXINE HCL XR 150 MG CAPXR PO SCH (08:17)
[2019-01-09] MEDS: PANTOprazole 40 MG TAB PO SCH (08:17)
[2019-01-09] MEDS: LOSARTAN POTASSIUM 50 MG TAB PO SCH (08:17)
[2019-01-09] MEDS: dilTIAZem HCL 240 MG CAPCR PO SCH (08:17)
--- NOTE | 2019-01-09 10:52 | Psychiatric Progress Note ---
Date of Service January 09, 2019 Impression / Recommendations (1) Schizoaffective disorder: 01/08 - The patient was admitted to the [facility] ([facility] mental health unit) on q15 min checks (behavioral with suicide precautions) for safety. The patient will participate in group, recreational, and milieu therapies and will be offered additional individual and family sessions as clinically appropriate. Risks/benefits/alternatives were reviewed re: antipsychotics for mood and/or psychosis. Discussion included but was not limited to metabolic side effects, risks of TD and suicidal thoughts. Abnormal motor movements at baseline. Hold order for fasting glucose and lipid panel ordered for baseline monitoring as reports having multiple in past 6 months. Restart Seroquel 200 mg this hs and monitor movements. Continue Effexor XR 150 mg qam, already received dose in ED and desires to start at previous dose rather than retitrate. 01/09 - Titrating quetiapine to 300mg this evening after review of risks and benefits. Continue venlafaxine 150mg daily. - AIMS completed today, and can be repeated later in stay - pt stating his alcohol withdrawal symptoms are the cause of his pronounced tremor and restlessness. AIMS=2; with display of perioral pouting, foot tapping/squirming. Awareness of 1; not causing distress. Pt is edentulous. - Pt requesting further titration of quetiapine, as had been historically effective at 400mg to resolve AH. Reviewed risks and benefits, in light of current concerns for movement disorder. Pt verbalized understanding of risks and states he has been told this in the past. Pt attributing his current restless movements to withdrawal symptoms. He verbalized desire to continue titration of quetiapine to 300mg this evening. Verbalizing awareness that movements may worsen, or even become permanent. Informed we would continue to m onitor for worsening movement disorder. (2) Alcohol intoxication: 01/08--Brief intervention was offered and accepted. Intervention was greater than 5 min in length and included assessing readiness to quit, advice on how to reduce or abstain from alcohol, and to set a specific goal for this hospitalization. composite layup worker will also assist in anticipating barriers to sobriety and in problem-solving for solutions to those problems while arranging for referral to appropriate treatment. The patient reports he does not drink when stable on his medications which he came here to resume. He plans to continue with AA, states he does not have a sponsor. The patient is advised to abstain from alcohol consumption due to depressant effects and risk of interaction with prescription medications. AWSS protocol with lowest loading dose of Neurontin as I do not want sedation to impair gait further than abnormal motor movements already are. Risk Factors Assessment Do You Have Access To A Gun?: No Protective Factors Assessment Employed: No Interval History Identifying Information GRACY PAREDES is a 78-year-old M who currently lives in [facility] alone, has a history of schizoaffective disorder and multiple psychiatric admissions, and was admitted on 01/08/19 11:22 on a 201 voluntary commitment for command hallucinations telling patient to hurt himrself. Chief Complaint "Just right now, there are only little voices." Review of Systems Notes Constitutional: denied Cardiovascular: denied Respiratory: denied Gastrointestinal: denied Neurological: reports tremor, which he believes to be related to ETOH withdrawal Psychiatric: denies symptoms other than stated above Total of at least 10 systems reviewed, pertinent positives as above and in HPI. Sleep Information Total Hours of Sleep: 7 Sleep Comments: awakened for scheduled neurontin-he is a heavy sleeper. incontinent of urine while oob to the bathroom. he is SOB when ambulating-gait appeared steady Meal Information Percent Meal Consumed - Breakfast: 100 Percent Meal Consumed - Lunch: 100 Percent Meal Consumed - Dinner: 100 Subjective Subjective Patient was seen & assessed and interval progress reviewed with treatment team. Staff report the patient has been attending groups and participating. He remains on AWSS protocol with gabapentin taper for concern for ETOH withdrawal symptoms. Pt rated his mood a 3-4/10 and "mixed" last evening. Pt was seen today to assess progress since admission. Pt states he is improving and is "getting much better." Pt states that he is happy to have his quetiapine restarted; however, he requests for the dose to be titrated back to 400mg qHS. Pt was informed of the concern regarding his current restless movements - taping his feet during interview, demonstrating tremor of hands bilaterally, and what appear to be exaggerated movements overall while gesturing during conversations. Pt states that he does have "a little less tremor" at baseline, but believes his current movements to be largely related to this alcohol withdrawal symptoms. Pt states that his mood overall is improving; however, he is continuing to hear "little voices telling me to hurt myself." He tells this provider that the voices resolve entirely with 400mg of quetiapine. Risks, benefits, and potential side effects of further titration were reviewed - patient verbalizing understanding of risk and continuing to request further titration this evening. Pt denies current SI, but admits to being uncertain of how he will handle financial stressors after discharge. He denies acute needs or concerns at this time. 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 ) Motor Behavior: steady gait and station and + tremor (of hands bilaterally); + abnormal motor movements oral and lower extremity dyskinesia is ongoing Speech: normal rate/rhythm/volume of speech Affect: + blunted affect (not appearing overtly depressed) Mood: + depressed mood (but states "getting much better") and + anxious mood (continues to have finacial concerns) Thought Process: goal directed thought process and + concrete thought process Thought Content: reality based without delusions; no hopelessness Suicidal Thoughts: denies suicidal thoughts and denies suicidal intent Homicidal Thoughts: denies homicidal thoughts Hallucinations: + auditory hallucinations ("little voices" - commanding patient to hurt himself ) Cognition: attention grossly intact and language grossly intact Insight: + fair insight Judgement: + fair judgement Vital Signs (Past 24 Hours) Last Vital Signs Temp 36.5 C 01/09/19 07:07 Pulse 89 01/09/19 07:07 Resp 18 01/09/19 07:07 BP 171/84 H 01/09/19 07:07 Pulse Ox 95 01/08/19 10:24 Results & Data Laboratory Results Laboratory Results - last 24 hr 01/08/19 01/08/19 12:12 13:12 Folate Cancelled > 24.00 Current Inpatient Medications Current Inpatient Medications: Current Inpatient Medications Acetaminophen (Tylenol) 650 mg PO Q4H PRN PRN Reason: Headache or Minor Fever Stop: 02/07/19 10:50 Al Hydrox/Mg Hydrox/Simethicone (Maalox) 30 ml PO Q4H PRN PRN Reason: GI Upset Stop: 02/07/19 10:50 Clopidogrel Bisulfate (Plavix) 75 mg PO DAILY LANDON Stop: 02/08/19 08:59 Last Admin: 01/09/19 08:17 Dose: 75 mg Documented by: Diltiazem HCl (Cardizem Cd) 240 mg PO DAILY [facility] Stop: 02/08/19 08:59 Last Admin: 01/09/19 08:17 Dose: 240 mg Documented by: Gabapentin (Neurontin) 200 mg PO Q24H LANDON Stop: 01/11/19 12:03 Gabapentin (Neurontin) 600 mg PO Q24H LANDON Stop: 01/09/19 12:03 Gabapentin (Neurontin) 400 mg PO Q24H LANDON Stop: 01/10/19 12:03 Hydroxyzine HCl (Vistaril) 25 mg PO Q4H PRN PRN Reason: Anxiety Stop: 02/07/19 10:50 Hydroxyzine HCl (Vistaril) 50 mg PO HSZ PRN PRN Reason: Insomnia Stop: 02/07/19 10:50 Lorazepam (Ativan) 1 mg PO ONE PRN; Protocol PRN Reason: EtoH Withdrawal AWSS 6-10 Losartan Potassium (Cozaar) 100 mg PO DAILY LANDON Stop: 02/08/19 08:59 Last Admin: 01/09/19 08:17 Dose: 100 mg Documented by: Magnesium Hydroxide (Milk Of Magnesia) 30 ml PO DAILY PRN PRN Reason: Constipation Stop: 02/07/19 10:50 Pantoprazole Sodium (Protonix) 40 mg PO DAILY LANDON Stop: 02/08/19 08:59 Last Admin: 01/09/19 08:17 Dose: 40 mg Documented by: Quetiapine Fumarate (Seroquel) 200 mg PO HS LANDON Stop: 02/07/19 21:59 Last Admin: 01/08/19 21:35 Dose: 200 mg Documented by: Ranitidine HCl (Zantac) 300 mg PO DAILY LANDON Stop: 02/08/19 08:59 Last Admin: 01/09/19 08:17 Dose: 300 mg Documented by: Sodium Chloride ([place] Nasal) 1 - 2 sprays NA PRN PRN PRN Reason: Nasal Dryness/Congestion Stop: 02/07/19 10:50 Venlafaxine HCl (Effexor Extended Release) 150 mg PO DAILY LANDON Stop: 02/08/19 08:59 Last Admin: 01/09/19 08:17 Dose: 150 mg Documented by: Mental Health & Subst Abuse Tx Therapist Name of Therapist: None Crate Repairer Name of Crate Repairer: None Post Discharge Appointments Primary Care Physician Name Of Family Doctor: [facility] in [place] (1) Alcohol intoxication Complication of substance-induced condition: with unspecified complication Qualified Code(s): F10.929 - Alcohol use, unspecified with intoxication, unspecified
[2019-01-09] MEDS ORDERED: GABAPENTIN 600 MG TAB PO SCH (12:02)
[2019-01-09] MEDS ORDERED: QUETIAPINE FUMARATE 300 MG TABLET PO SCH (22:00)
[2019-01-10] MEDS: LOSARTAN POTASSIUM 50 MG TAB PO SCH (07:23)
[2019-01-10] MEDS: VENLAFAXINE HCL XR 150 MG CAPXR PO SCH (07:23)
[2019-01-10] MEDS: dilTIAZem HCL 240 MG CAPCR PO SCH (07:23)
[2019-01-10] MEDS: PANTOprazole 40 MG TAB PO SCH (07:24)
[2019-01-10] MEDS: CLOPIDOGREL BISULFATE 75 MG TAB PO SCH (07:24)
--- NOTE | 2019-01-10 10:36 | Psychiatric Progress Note ---
Date of Service January 10, 2019 Impression / Recommendations Impression Mood and AH improved as quetiapine is being re-titrated, but still hearing voices telling him to harm himself at times, and does not feel safe leaving the hospital. He is unable to identify any supports, and states he does not currently have an outpatient psychiatrist. He does report today that he has a telephonic nurse case manager, who hopefully can assist us in identifying appropriate outpatient services for him. He also indicates a plan to return to and his local [facility], when he returns to [place]. (1) Schizoaffective disorder: 01/08 - The patient was admitted to the [facility] ([facility]) on q15 min checks (behavioral with suicide precautions) for safety. The patient will participate in group, recreational, and milieu therapies and will be offered additional individual and family sessions as clinically appropriate. Risks/benefits/alternatives were reviewed re: antipsychotics for mood and/or psychosis. Discussion included but was not limited to metabolic side effects, risks of TD and suicidal thoughts. Abnormal motor movements at baseline. Hold order for fasting glucose and lipid panel ordered for baseline monitoring as r eports having multiple in past 6 months. Restart Seroquel 200 mg this hs and monitor movements. Continue Effexor XR 150 mg qam, already received dose in ED and desires to start at previous dose rather than retitrate. 01/09 - Titrating quetiapine to 300mg this evening after review of risks and benefits. Continue venlafaxine 150mg daily. - AIMS completed today, and can be repeated later in stay - pt stating his alcohol withdrawal symptoms are the cause of his pronounced tremor and restlessness. AIMS=2; with display of perioral pouting, foot tapping/squirming. Awareness of 1; not causing distress. Pt is edentulous. - Pt requesting further titration of quetiapine, as had been historically effective at 400mg to resolve AH. Reviewed risks and benefits, in light of current concerns for movement disorder. Pt verbalized understanding of risks and states he has been told this in the past. Pt attributing his current restless movements to withdrawal symptoms. He verbalized desire to continue titration of quetiapine to 300mg this evening. Verbalizing awareness that movements may worsen, or even become permanent. Informed we would continue to monitor for worsening movement disorder. 01/10 - Increase quetiapine to 400mg HS to target mood and auditory hallucinations. Order fasting lipid profile and glucose for tomorrow morning for monitoring on an atypical antipsychotic. - Patient indicates he has a telephonic nurse case manager, but says she is on maternity leave and no one is filling in. He also indicates he does not have a current psychiatrist, and has been "going to crisis." Will explore options for outpatient psychiatry - perhaps his CM can assist? - AIMS: Patient did not want to participate in evaluation, stating he doesn't have abnormal movements. He is edentulous, but appears to have involuntary movements of upper and lower extremities, mouth and possibly tongue. No tremor visible at rest or with outstretched hands. No abnormal trunk movements noted. - Explore options for increased socialization - [facility] local [facility], AA meetings. Denies having any friends/family (sister hasn't spoken to him in 20 years, many friends have ). Present on Admission?: Yes (2) Alcohol intoxication: 01/08--Brief intervention was offered and accepted. Intervention was greater than 5 min in length and included assessing readiness to quit, advice on how to reduce or abstain from alcohol, and to set a specific goal for this hospitalization. draw off worker will also assist in anticipating barriers to sobriety and in problem-solving for solutions to those problems while arranging for referral to appropriate treatment. The patient reports he does not drink when stable on his medications which he came here to resume. He plans to continue with AA, states he does not have a sponsor. The patient is advised to abstain from alcohol consumption due to depressant effects and risk of interaction with prescription medications. AWSS protocol with lowest loading dose of Neurontin as I do not want sedation to impair gait further than abnormal motor movements already are. 01/10--Not scoring, denies withdrawal symptoms, discontinue AWSS. --Patient plans to resume AA and abstain from alcohol. Present on Admission?: Yes Inventory Assets Strengths: has stable housing, willing for treatment Needs: outpatient care, increased socialization, sobriety Risk Factors Assessment Male: Yes : Yes Do You Have Access To A Gun?: No Health Problems: Yes Mental Health Diagnoses: Yes Substance Use Disorders: Yes Previous Attempt: Yes Family History of Suicide: No Previous Psychiatric Hospitalization: Yes Hopelessness: Yes Smoker: Yes Protective Factors Assessment Confucianist Beliefs: Yes : No Responsible for Young Children: No Employed: No Stable Relationships: No Supportive Family: No Good Rapport with Provider: No Interval History Identifying Information GRACY PAREDES is a 78-year-old M who currently lives in [facility] alone, has a history of schizoaffective disorder and multiple psychiatric admissions, and was admitted on 01/08/19 11:22 on a 201 voluntary commitment for command hallucinations telling patient to hurt himself. Chief Complaint "Better, still some voices". Review of Systems Sleep Information Total Hours of Sleep: 6 Sleep Comments: awakened for scheduled neurontin-he is a heavy sleeper. incontinent of urine while oob to the bathroom. he is SOB when ambulating-gait appeared steady Meal Information Percent Meal Consumed - Breakfast: 100 Percent Meal Consumed - Lunch: 25 Percent Meal Consumed - Dinner: 100 Subjective Subjective Patient was seen & assessed and interval progress reviewed with nursing and social work. Staff report he is attending groups and participating, taking medication and reporting it is helpful. On my assessment, he reports his mood is "a little better" and although AH have improved, he is still hearing voices daily telling him to hurt himself, and fears he would act on them if he weren't in the hospital. He talks about his previous suicide attempts, some of which were very serious. He can't explain why he came to this area, "I was drinking and just wanted to get out of [place], it's not nice anymore." He plans to return however, "I have to." He says the mental health system "is broken there," because his psychiatrist retired and he then had telepsych, which he didn't like as "it felt so inhuman." He states he does have a telephonic nurse case manager, but thinks she is out on maternity leave. He is not sure how he will get his medication refilled after he leaves the hospital, stating that his PCP probably will not fill it anymore. He states mood is "still a little down," stating most of his friends have , his only remaining family is a sister who has not spoken to him in 20 years, and [place] "isn't a nice place to live." He states treatment here is helping, and he would like to increase quetiapine further to 400 mg, as that dose was previously effective for his symptoms. Physical Exam Psychiatric Orientation: alert and cooperative Apperance: appropriately dressed and appropriately groomed; + did not appear stated age (younger than stated age) Eye Contact: + fair eye contact disconjugate gaze, L eyelid droop Motor Behavior: steady gait and station arms crossed, seated in NAD Speech: normal rate/rhythm/volume of speech Affect: + blunted affect "better" Thought Process: goal directed thought process Thought Content: reality based without delusions Suicidal Thoughts: + reports suicidal thoughts urges to harm himself when experiencing command hallucinations Homicidal Thoughts: denies homicidal thoughts Hallucinations: + auditory hallucinations; no visual hallucinations Cognition: recent memory grossly intact, attention grossly intact and language grossly intact Insight: + fair insight Judgement: + fair judgement Vital Signs (Past 24 Hours) Last Vital Signs Temp 36.8 C 01/10/19 08:05 Pulse 81 01/10/19 08:05 Resp 18 01/10/19 08:05 BP 159/90 H 01/10/19 08:05 Pulse Ox 95 01/08/19 10:24 Results & Data Current Inpatient Medications Current Inpatient Medications: Current Inpatient Medications Acetaminophen (Tylenol) 650 mg PO Q4H PRN PRN Reason: Headache or Minor Fever Stop: 02/07/19 10:50 Al Hydrox/Mg Hydrox/Simethicone (Maalox) 30 ml PO Q4H PRN PRN Reason: GI Upset Stop: 02/07/19 10:50 Clopidogrel Bisulfate (Plavix) 75 mg PO DAILY L[facility]ON Stop: 02/08/19 08:59 Last Admin: 01/10/19 07:24 Dose: 75 mg Documented by: Diltiazem HCl (Cardizem Cd) 240 mg PO DAILY L[facility]ON Stop: 02/08/19 08:59 Last Admin: 01/10/19 07:23 Dose: 240 mg Documented by: Gabapentin (Neurontin) 200 mg PO Q24H L[facility]ON Stop: 01/11/19 12:03 Gabapentin (Neurontin) 400 mg PO Q24H LANDON Stop: 01/10/19 12:03 Hydroxyzine HCl (Vistaril) 25 mg PO Q4H PRN PRN Reason: Anxiety Stop: 02/07/19 10:50 Hydroxyzine HCl (Vistaril) 50 mg PO HSZ PRN PRN Reason: Insomnia Stop: 02/07/19 10:50 Losartan Potassium (Cozaar) 100 mg PO DAILY LANDON Stop: 02/08/19 08:59 Last Admin: 01/10/19 07:23 Dose: 100 mg Documented by: Magnesium Hydroxide (Milk Of Magnesia) 30 ml PO DAILY PRN PRN Reason: Constipation Stop: 02/07/19 10:50 Pantoprazole Sodium (Protonix) 40 mg PO DAILY L[facility]ON Stop: 02/08/19 08:59 Last Admin: 01/10/19 07:24 Dose: 40 mg Documented by: Quetiapine Fumarate (Seroquel) 300 mg PO HS LANDON Stop: 02/08/19 21:59 Last Admin: 01/09/19 21:10 Dose: 300 mg Documented by: Ranitidine HCl (Zantac) 300 mg PO DAILY L[facility]ON Stop: 02/08/19 08:59 Last Admin: 01/10/19 07:24 Dose: 300 mg Documented by: Sodium Chloride ([place] Nasal) 1 - 2 sprays NA PRN PRN PRN Reason: Nasal Dryness/Congestion Stop: 02/07/19 10:50 Venlafaxine HCl (Effexor Extended Release) 150 mg PO DAILY LANDON Stop: 02/08/19 08:59 Last Admin: 01/10/19 07:23 Dose: 150 mg Documented by: Mental Health & Subst Abuse Tx Therapist Name of Therapist: None Balloon Tester Name of Balloon Tester: None Post Discharge Appointments Primary Care Physician Name Of Family Doctor: [facility] in [place] (1) Schizoaffective disorder Schizoaffective disorder type: unspecified Qualified Code(s): F25.9 - Schizoaffective disorder, unspecified (2) Alcohol intoxication Complication of substance-induced condition: with unspecified complication Qualified Code(s): F10.929 - Alcohol use, unspecified with intoxication, unspecified
[2019-01-10] MEDS ORDERED: GABAPENTIN 400 MG CAP PO SCH (12:02)
[2019-01-10] MEDS: QUETIAPINE FUMARATE 200 MG TAB PO SCH (21:28)
[2019-01-11] MEDS: dilTIAZem HCL 240 MG CAPCR PO SCH (08:55)
[2019-01-11] MEDS: VENLAFAXINE HCL XR 150 MG CAPXR PO SCH (08:55)
[2019-01-11] MEDS: LOSARTAN POTASSIUM 50 MG TAB PO SCH (08:55)
[2019-01-11] MEDS: CLOPIDOGREL BISULFATE 75 MG TAB PO SCH (08:56)
[2019-01-11] MEDS: PANTOprazole 40 MG TAB PO SCH (08:56)
[2019-01-11 09:08] LABS: Glucose Fasting 110 mg/dl (70-99)
[2019-01-11 09:15] LABS: Chol HDL Ratio 3; Cholesterol 158 mg/dl (0-200); HDL Cholesterol 50 mg/dl; LDL Cholesterol Calculated 84 mg/dl; Triglycerides 120 mg/dl (0-150); VLDL Cholesterol 24 mg/dl
--- NOTE | 2019-01-11 11:10 | Psychiatric Progress Note ---
Date of Service January 11, 2019 Impression / Recommendations Impression Mood and AH improving and patient is now back on home dosing of his psychiatric medications. He admits he is still hearing voices telling him to harm himself at times, and does not feel safe leaving the hospital. He is unable to identify any supports, and states he does not currently have an outpatient psychiatrist. He reports having a case specialist, who hopefully can assist us in identifying appropriate outpatient services for him. He also indicates a plan to return to and his local [facility], when he returns to [place]. Pt denies ability to contract for safety today, but feels once the voices have quieted he will be more comfortable with discharge. He admits that he usually does not have auditory hallucinations, so he does not feel as though he has any experience managing the symptoms with distraction and other coping strategies. Inpatient psychiatric hospitalization remains medically necessary until patient is able to contract for safety outside of the hospital setting. (1) Schizoaffective disorder: 01/08 - The patient was admitted to the [facility] ([facility] unit) on q15 min checks (behavioral with suicide precautions) for safety. The patient will participate in group, recreational, and milieu therapies and will be offered additional individual and family sessions as clinically appropriate. Risks/benefits/alternatives were reviewed re: antipsychotics for mood and/or psychosis. Discussion included but was not limited to metabolic side effects, risks of TD and suicidal thoughts. Abnormal motor movements at baseline. Hold order for fasting glucose and lipid panel ordered for baseline monitoring as reports having multiple in past 6 months. Restart Seroquel 200 mg this hs and monitor movements. Continue Effexor XR 150 mg qam, already received dose in ED and desires to start at previous dose rather than retitrate. 01/09 - Titrating quetiapine to 300mg this evening after review of risks and bene fits. Continue venlafaxine 150mg daily. - AIMS completed today, and can be repeated later in stay - pt stating his alcohol withdrawal symptoms are the cause of his pronounced tremor and restlessness. AIMS=2; with display of perioral pouting, foot tapping/squirming. Awareness of 1; not causing distress. Pt is edentulous. - Pt requesting further titration of quetiapine, as had been historically effective at 400mg to resolve AH. Reviewed risks and benefits, in light of current concerns for movement disorder. Pt verbalized understanding of risks and states he has been told this in the past. Pt attributing his current restless movements to withdrawal symptoms. He verbalized desire to continue titration of quetiapine to 300mg this evening. Verbalizing awareness that movements may worsen, or even become permanent. Informed we would continue to monitor for worsening movement disorder. 01/10 - Increase quetiapine to 400mg HS to target mood and auditory hallucinations. Order fasting lipid profile and glucose for tomorrow morning for monitoring on an atypical antipsychotic. - Patient indicates he has a case specialist, but says she is on maternity leave and no one is filling in. He also indicates he does not have a current psychiatrist, and has been "going to crisis." Will explore options for outpatient psychiatry - perhaps his CM can assist? - AIMS: Patient did not want to participate in evaluation, stating he doesn't have abnormal movements. He is edentulous, but appears to have involuntary movements of upper and lower extremities, mouth and possibly tongue. No tremor visible at rest or with outstretched hands. No abnormal trunk movements noted. - Explore options for increased socialization - [facility], AA meetings. Denies having any friends/family (sister hasn't spoken to him in 20 years, many friends have ). 01/10 - Continue current medication regimen, quetiapine has been titrated back to his home dosage - Admits to continued auditory hallucinations commanding him to harm himself or "overdose" - states they are quieter, but he remains concerned by them - Continue to encourage group participation - Continue to coordinate aftercare arrangements (2) Alcohol intoxication: 01/08--Brief intervention was offered and accepted. Intervention was greater than 5 min in length and included assessing readiness to quit, advice on how to reduce or abstain from alcohol, and to set a specific goal for this hospitalization. pick pack worker will also assist in anticipating barriers to s obriety and in problem-solving for solutions to those problems while arranging for referral to appropriate treatment. The patient reports he does not drink when stable on his medications which he c alfonso here to resume. He plans to continue with AA, states he does not have a sponsor. The patient is advised to abstain from alcohol consumption due to depressant effects and risk of interaction with prescription medications. AWSS protocol with lowest loading dose of Neurontin as I do not want sedation to impair gait further than abnormal motor movements already are. 01/10--Not scoring, denies withdrawal symptoms, discontinue AWSS. --Patient plans to resume AA and abstain from alcohol. Inventory Assets Strengths: has stable housing, willing for treatment Needs: outpatient care, increased socialization, sobriety Risk Factors Assessment Male: Yes : Yes Do You Have Access To A Gun?: No Health Problems: Yes Mental Health Diagnoses: Yes Substance Use Disorders: Yes Previous Attempt: Yes Family History of Suicide: No Previous Psychiatric Hospitalization: Yes Hopelessness: Yes Smoker: Yes Protective Factors Assessment Amish Beliefs: Yes : No Responsible for Young Children: No Employed: No Stable Relationships: No Supportive Family: No Good Rapport with Provider: No Interval History Identifying Information GRACY PAREDES is a 78-year-old M who currently lives in [facility] alone, has a history of schizoaffective disorder and multiple psychiatric admissions, and was admitted on 01/08/19 11:22 on a 201 voluntary commitment for command hallucinations telling patient to hurt himself. Chief Complaint "Not bad. Getting better." Review of Systems Notes Constitutional: denied Cardiovascular: denied Respiratory: denied Gastrointestinal: denied Neurological: denied Psychiatric: denies symptoms other than stated above Total of at least 10 systems reviewed, pertinent positives as above and in HPI. Sleep Information Total Hours of Sleep: 6 Sleep Comments: awakened for a room change, he was able to fall back to sleep easily Meal Information Percent Meal Consumed - Breakfast: 100 Percent Meal Consumed - Lunch: 100 Percent Meal Consumed - Dinner: 100 Subjective Subjective Patient was seen & assessed and interval progress reviewed with treatment team. Staff reports the patient continues to endorse auditory hallucinations commanding him to harm himself or end his life. He has been outside of his room, but has been preoccupied with completing puzzles in the activity area. He demonstrates appropriate interactions with peers. Patient was seen today to assess progress since admission. He states that he feels as though things are "getting better" he does admit that the voices are "still there." They keep commanding me to harm myself, sometimes they tell me to kill myself. To overdose." Patient states that although the voices have become softer, he does not feel comfortable managing his symptoms independently. Patient states "usually I do not hear the voices, so I do not have to distract myself. I just do not know. I do not know that I could handle it." When asked about the presence of suicidal ideation, the patient states that he did experience some last evening. His description of suicidal thoughts, was more hopelessness regarding "nothing to go back to in [place]." He does admit that he is not sure he would be able to keep himself safe if he were to be discharged at this time. Patient is hopeful that now that his quetiapine has been titrated to his home dose, that the auditory hallucinations will resolve. Patient admits that he does not have a lot of outpatient support, and that this is concerning to him. He was agreeable with beginning the conversation regarding discharge planning, but does not feel safe outside of the hospital at this time. Patient denies other needs or concerns today. 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, direct eye contact is sustained with right eye) Motor Behavior: steady gait and station (slow but stable ambulation); + abnormal motor movements (involuntary movements of upper and lower extremitites ongoing, no distress) Speech: normal rate/rhythm/volume of speech Affect: + blunted affect Mood: + depressed mood ("still just not sure that I have anything to go back to, it makes me sad") and + anxious mood Thought Process: goal directed thought process and clear/coherent thought process Thought Content: reality based without delusions Suicidal Thoughts: denies suicidal intent (but reports inability to contract for safety); + reports suicidal thoughts (stating he does not feel he would be able to resist command AH) Homicidal Thoughts: denies homicidal thoughts Hallucinations: + auditory hallucinations (improving, but admits to continued command hallucinations to harm himself); no visual hallucinations Cognition: attention grossly intact and language grossly intact Insight: + fair insight Judgement: + fair judgement Vital Signs (Past 24 Hours) Last Vital Signs Temp 36.7 C 01/11/19 07:13 Pulse 85 01/11/19 07:15 Resp 18 01/11/19 07:13 BP 139/84 01/11/19 07:15 Pulse Ox 95 01/08/19 10:24 Results & Data Laboratory Results Laboratory Results - last 24 hr 01/11/19 08:03 Fasting Glucose 110 H Triglycerides 120 Cholesterol 158 LDL Cholesterol, Calc 84 VLDL Cholesterol, Calc 24 HDL Cholesterol 50 Cholesterol/HDL Ratio 3 Current Inpatient Medications Current Inpatient Medications: Current Inpatient Medications Acetaminophen (Tylenol) 650 mg PO Q4H PRN PRN Reason: Headache or Minor Fever Stop: 02/07/19 10:50 Al Hydrox/Mg Hydrox/Simethicone (Maalox) 30 ml PO Q4H PRN PRN Reason: GI Upset Stop: 02/07/19 10:50 Clopidogrel Bisulfate (Plavix) 75 mg PO DAILY LANDON Stop: 02/08/19 08:59 Last Admin: 01/11/19 08:56 Dose: 75 mg Documented by: Diltiazem HCl (Cardizem Cd) 240 mg PO DAILY LANDON Stop: 02/08/19 08:59 Last Admin: 01/11/19 08:55 Dose: 240 mg Documented by: Gabapentin (Neurontin) 200 mg PO Q24H LANDON Stop: 01/11/19 12:03 Hydroxyzine HCl (Vistaril) 25 mg PO Q4H PRN PRN Reason: Anxiety Stop: 02/07/19 10:50 Hydroxyzine HCl (Vistaril) 50 mg PO HSZ PRN PRN Reason: Insomnia Stop: 02/07/19 10:50 Losartan Potassium (Cozaar) 100 mg PO DAILY LANDON Stop: 02/08/19 08:59 Last Admin: 01/11/19 08:55 Dose: 100 mg Documented by: Magnesium Hydroxide (Milk Of Magnesia) 30 ml PO DAILY PRN PRN Reason: Constipation Stop: 02/07/19 10:50 Pantoprazole Sodium (Protonix) 40 mg PO DAILY LANDON Stop: 02/08/19 08:59 Last Admin: 01/11/19 08:56 Dose: 40 mg Documented by: Quetiapine Fumarate (Seroquel) 400 mg PO HS LANDON Stop: 02/09/19 21:59 Last Admin: 01/10/19 21:28 Dose: 400 mg Documented by: Ranitidine HCl (Zantac) 300 mg PO DAILY LANDON Stop: 02/08/19 08:59 Last Admin: 01/11/19 08:56 Dose: 300 mg Documented by: Sodium Chloride (Stone Nasal) 1 - 2 sprays NA PRN PRN PRN Reason: Nasal Dryness/Congestion Stop: 02/07/19 10:50 Venlafaxine HCl (Effexor Extended Release) 150 mg PO DAILY LANDON Stop: 02/08/19 08:59 Last Admin: 01/11/19 08:55 Dose: 150 mg Documented by: Mental Health & Subst Abuse Tx Therapist Name of Therapist: None Orthotics Prosthetics Assistant Name of Orthotics Prosthetics Assistant: None Post Discharge Appointments Primary Care Physician Name Of Family Doctor: [facility] Primary Care Provider Appointment Comment: [address], [place] [address] Contact Information Discharge Phone Number: None identified Discharge Address: [address], [place] [address] (1) Alcohol intoxication Complication of substance-induced condition: with unspecified complication Qualified Code(s): F10.929 - Alcohol use, unspecified with intoxication, unspecified (2) Schizoaffective disorder Schizoaffective disorder type: unspecified Qualified Code(s): F25.9 - Schizoaffective disorder, unspecified
[2019-01-11] MEDS ORDERED: GABAPENTIN 100 MG CAP PO SCH (12:02)
[2019-01-11] MEDS: QUETIAPINE FUMARATE 200 MG TAB PO SCH (21:13)
[2019-01-12] MEDS: dilTIAZem HCL 240 MG CAPCR PO SCH (08:07)
[2019-01-12] MEDS: LOSARTAN POTASSIUM 50 MG TAB PO SCH (08:07)
[2019-01-12] MEDS: VENLAFAXINE HCL XR 150 MG CAPXR PO SCH (08:08)
[2019-01-12] MEDS: PANTOprazole 40 MG TAB PO SCH (08:08)
[2019-01-12] MEDS: CLOPIDOGREL BISULFATE 75 MG TAB PO SCH (08:08)
--- NOTE | 2019-01-12 11:24 | Psychiatric Progress Note ---
Date of Service January 12, 2019 Impression / Recommendations Impression Mood and AH improving and patient is now back on home dosing of his psychiatric medications. He admits he is still hearing voices telling him to harm himself at times, and does not feel safe leaving the hospital. He is unable to identify any supports, and states he does not currently have an outpatient psychiatrist. He reports having a vocational case manager, who hopefully can assist us in identifying appropriate outpatient services for him. He also indicates [facility] when he returns to [place]. Pt denies ability to contract for safety today, but feels once the voices have quieted he will be more comfortable with discharge. He admits that he usually does not have auditory hallucinations, so he does not feel as though he has any experience managing the symptoms with distraction and other coping strategies. Inpatient psychiatric hospitalization remains medically necessary until patient is able to contract for safety outside of the hospital setting. (1) Schizoaffective disorder: 01/08 - The patient was admitted to the [facility] ([facility]) on q15 min checks (behavioral with suicide precautions) for safety. The patient will participate in group, recreational, and milieu therapies and will be offered additional individual and family sessions as clinically appropriate. Risks/benefits/alternatives were reviewed re: antipsychotics for mood and/or psychosis. Discussion included but was not limited to metabolic side effects, risks of TD and suicidal thoughts. Abnormal motor movements at baseline. Hold order for fasting glucose and lipid panel ordered for baseline monitoring as reports having multiple in past 6 months. Restart Seroquel 200 mg this hs and monitor movements. Continue Effexor XR 150 mg qam, already received dose in ED and desires to start at previous dose rather than retitrate. 01/09 - Titrating quetiapine to 300mg this evening after review of risks and bene fits. Continue venlafaxine 150mg daily. - AIMS completed today, and can be repeated later in stay - pt stating his alcohol withdrawal symptoms are the cause of his pronounced tremor and restlessness. AIMS=2; with display of perioral pouting, foot tapping/squirming. Awareness of 1; not causing distress. Pt is edentulous. - Pt requesting further titration of quetiapine, as had been historically effective at 400mg to resolve AH. Reviewed risks and benefits, in light of current concerns for movement disorder. Pt verbalized understanding of risks and states he has been told this in the past. Pt attributing his current restless movements to withdrawal symptoms. He verbalized desire to continue titration of quetiapine to 300mg this evening. Verbalizing awareness that movements may worsen, or even become permanent. Informed we would continue to monitor for worsening movement disorder. 01/10 - Increase quetiapine to 400mg HS to target mood and auditory hallucinations. Order fasting lipid profile and glucose for tomorrow morning for monitoring on an atypical antipsychotic. - Patient indicates he has a vocational case manager, but says she is on maternity leave and no one is filling in. He also indicates he does not have a current psychiatrist, and has been "going to crisis." Will explore options for outpatient psychiatry - perhaps his CM can assist? - AIMS: Patient did not want to participate in evaluation, stating he doesn't have abnormal movements. He is edentulous, but appears to have involuntary movements of upper and lower extremities, mouth and possibly tongue. No tremor visible at rest or with outstretched hands. No abnormal trunk movements noted. - Explore options for increased socialization - [facility] local [facility], AA meetings. Denies having any friends/family (sister hasn't spoken to him in 20 years, many friends have ). 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 Intervention was greater than 5 min in length and included assessing readiness to quit, advice on how to reduce or abstain from alcohol, and to set a specific goal for this hospitalization. child daycare worker will also assist in anticipating barriers to sobriety and in problem-solving for solutions to those problems while arranging for referral to appropriate treatment. The patient reports he does not drink when stable on his medications which he came here to resume. He plans to continue with AA, states he does not have a sponsor. The patient is advised to abstain from alcohol consumption due to depressant effects and risk of interaction with prescription medications. AWSS protocol with lowest loading dose of Neurontin as I do not want sedation to impair gait further than abnormal motor movements already are. 01/10--Not scoring, denies withdrawal symptoms, discontinue AWSS. --Patient plans to resume AA and abstain from alcohol. Inventory Assets Strengths: has stable housing, willing for treatment Needs: outpatient care, increased socialization, sobriety Risk Factors Assessment Male: Yes : Yes Do You Have Access To A Gun?: No Health Problems: Yes Mental Health Diagnoses: Yes Substance Use Disorders: Yes Previous Attempt: Yes Family History of Suicide: No Previous Psychiatric Hospitalization: Yes Hopelessness: Yes Smoker: Yes Protective Factors Assessment Caodaism Beliefs: Yes : No Responsible for Young Children: No Employed: No Stable Relationships: No Supportive Family: No Good Rapport with Provider: No Interval History Identifying Information GRACY PAREDES is a 78-year-old M who currently lives in [facility] alone, has a history of schizoaffective disorder and multiple psychiatric admissions, and was admitted on 01/08/19 11:22 on a 201 voluntary commitment for command hallucinations telling patient to hurt himself. Chief Complaint "A little better, but not as much as I expected to be." Review of Systems Notes Constitutional: reports improved sleep last evening Cardiovascular: denied Respiratory: denied Gastrointestinal: denied Neurological: denied Psychiatric: denies symptoms other than stated above Total of at least 10 systems reviewed, pertinent positives as above and in HPI. Sleep Information Total Hours of Sleep: 6.75 Sleep Comments: awakened for a room change, he was able to fall back to sleep easily Meal Information Percent Meal Consumed - Breakfast: 100 Percent Meal Consumed - Lunch: 100 Percent Meal Consumed - Dinner: 100 Subjective Subjective Patient was seen & assessed and interval progress reviewed with nursing and social work. Staff reports the patient has continued to participate in group programming. 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 Primary care would then refer patient for psychiatric services in the community. Patient was seen today to assess progress since admission. Patient states that he is feeling "a little better but not as much as I expected to be." Patient states that the voices telling him to harm himself have grown softer, but are still present. Patient states "each day they are getting much less." Patient states he slept well last evening, and otherwise is doing fine during the day. Discharge plan was reviewed with the patient, who suddenly became very anxious about the possibility of going home tomorrow. Patient states that he is not yet feeling ready to return home, and states he "definitely can't" get to an appointment in the afternoon schedule on the same day as a discharge. Despite going through the timeline of the day, patient states he would be required to take a bus to the appointment, and is not able to foresee a plan that would allow him to get to that appointment in time when asked what would help the patient with this plan, he states "not to schedule an appointment for the same day as discharge." Patient does admit that he does not yet feel ready to go home, but admits his condition is improving each day. He does admit that he would be concerned about going home prior to resolution of the voices as "I would have all my meds, and "I always did when they got loud" - implying voices would command him to overdose. This provider informed the patient that we would attempt to schedule a different appointment. Patient was grateful for this. He denies thoughts at this moment to harm himself, but is not able to contract for safety outside of the hospital at this time. Patient denies other needs or concerns presently. Physical Exam Psychiatric Orientation: alert, oriented x 3 and cooperative Apperance: appropriately dressed (casually, in t-shirt and scrub pants) and + disheveled (and malodorous) Eye Contact: good eye contact (left eye droop) Motor Behavior: steady gait and station (slow, cautious movements - some shuffling of feet ); + abnormal motor movements (involuntary movements of upper/lower extremities ongoing) Involuntary movements do not seem to be exacerbated by titration of quetiapine Speech: normal rate/rhythm/volume of speech Affect: + anxious affect Mood: + anxious mood (reports concern that he won't be able to get to discharge appointments) Thought Process: goal directed thought process, clear/coherent thought process and + concrete thought process Thought Content: reality based without delusions; no hopelessness Suicidal Thoughts: denies suicidal thoughts (but remains concerned about AH commanding him to harm himself or OD) and denies suicidal intent Homicidal Thoughts: denies homicidal thoughts Hallucinations: + auditory hallucinations ("each day they are getting much less") Cognition: attention grossly intact and language grossly intact Insight: + fair insight Judgement: + fair judgement Vital Signs (Past 24 Hours) Last Vital Signs Temp 36.5 C 01/12/19 06:56 Pulse 82 01/12/19 06:56 Resp 18 01/12/19 06:56 BP 190/94 H 01/12/19 06:56 Pulse Ox 95 01/08/19 10:24 Results & Data Current Inpatient Medications Current Inpatient Medications: Current Inpatient Medications Acetaminophen (Tylenol) 650 mg PO Q4H PRN PRN Reason: Headache or Minor Fever Stop: 02/07/19 10:50 Al Hydrox/Mg Hydrox/Simethicone (Maalox) 30 ml PO Q4H PRN PRN Reason: GI Upset Stop: 02/07/19 10:50 Clopidogrel Bisulfate (Plavix) 75 mg PO DAILY [facility] Stop: 02/08/19 08:59 Last Admin: 01/12/19 08:08 Dose: 75 mg Documented by: Diltiazem HCl (Cardizem Cd) 240 mg PO DAILY [facility] Stop: 02/08/19 08:59 Last Admin: 01/12/19 08:07 Dose: 240 mg Documented by: Hydroxyzine HCl (Vistaril) 25 mg PO Q4H PRN PRN Reason: Anxiety Stop: 02/07/19 10:50 Hydroxyzine HCl (Vistaril) 50 mg PO HSZ PRN PRN Reason: Insomnia Stop: 02/07/19 10:50 Losartan Potassium (Cozaar) 100 mg PO DAILY [facility] Stop: 02/08/19 08:59 Last Admin: 01/12/19 08:07 Dose: 100 mg Documented by: Magnesium Hydroxide (Milk Of Magnesia) 30 ml PO DAILY PRN PRN Reason: Constipation Stop: 02/07/19 10:50 Pantoprazole Sodium (Protonix) 40 mg PO DAILY [facility] Stop: 02/08/19 08:59 Last Admin: 01/12/19 08:08 Dose: 40 mg Documented by: Quetiapine Fumarate (Seroquel) 400 mg PO HS [facility]ON Stop: 02/09/19 21:59 Last Admin: 01/11/19 21:13 Dose: 400 mg Documented by: Ranitidine HCl (Zantac) 300 mg PO DAILY [facility] Stop: 02/08/19 08:59 Last Admin: 01/12/19 08:08 Dose: 300 mg Documented by: Sodium Chloride (Routt Nasal) 1 - 2 sprays NA PRN PRN PRN Reason: Nasal Dryness/Congestion Stop: 02/07/19 10:50 Venlafaxine HCl (Effexor Extended Release) 150 mg PO DAILY [facility] Stop: 02/08/19 08:59 Last Admin: 01/12/19 08:08 Dose: 150 mg Documented by: Mental Health & Subst Abuse Tx Therapist Name of Therapist: None Drosophere Operator Name of Drosophere Operator: None Post Discharge Appointments Primary Care Physician Name Of Family Doctor: [facility] - Dr. Quintero Primary [facility] Date of Appointment with PCP: 01/13/19 Time of Appointment with PCP: 2:00 p.m. Provider Appointment Comment: [address] , [place] [id number] Contact Information Discharge Phone Number: None identified Discharge Address: [address] [address], [place] [address] (1) Alcohol intoxication Complication of substance-induced condition: with unspecified complication Qualified Code(s): F10.929 - Alcohol use, unspecified with intoxication, unspecified (2) Schizoaffective disorder Schizoaffective disorder type: unspecified Qualified Code(s): F25.9 - Schizoaffective disorder, unspecified
[2019-01-12] MEDS: QUETIAPINE FUMARATE 200 MG TAB PO SCH (21:08)
[2019-01-13 06:36] VITALS: TEMP 96.8
[2019-01-13] MEDS: dilTIAZem HCL 240 MG CAPCR PO SCH (08:12)
[2019-01-13] MEDS: LOSARTAN POTASSIUM 50 MG TAB PO SCH (08:12)
[2019-01-13] MEDS: PANTOprazole 40 MG TAB PO SCH (08:13)
[2019-01-13] MEDS: CLOPIDOGREL BISULFATE 75 MG TAB PO SCH (08:13)
[2019-01-13] MEDS: VENLAFAXINE HCL XR 150 MG CAPXR PO SCH (08:13)
--- NOTE | 2019-01-13 11:59 | Discharge Summary ---
Date of Service January 13, 2019 History of Present Illness Patient last admitted to [facility] in 2009. He reports last psych admission for jayshree was 2 months ago at [facility] as no hospital bed in [facility]. He states that he ran out of medication 5 days ago, seemingly as missed sessions [facility] as "I don't like the tv doctor", referring to telepsych. 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 He denies drinking regularly but estimates he ingested 20 beers in the last 2 days. He describes some feelings of isolation as only 1 friend in [place] and sister doesn't talk to him for some time. He reports [facility] [employer] for something to do and relapsing on ETOH, longest period of sobriety is "a few months". He understands that his medical meds are important given dx of a fib within the past year but was non-compliant with those meds as well. He was tachy and elevated BP on presentation to the ED, medical work up was benign and Dr. Phelan cleared him as well prior to arrival on the unit since rate controlled and resuming medications. He states that for past few days he hears a man's voice telling him to harm himself but is clear that he is not depressed and doesn't want to act on those thoughts. He has significant restlessness, likely Parkinsonian or mild TD at baseline with superimposed withdrawal dyskinesia though he attributes some of the tremor to ETOH. He describes a rather remote hx of DTs around "11/16" at which time he was hospitalized for delirium at [facility] on urgent transfer from rehab at [place]. Physical Exam Psychiatric Orientation: alert and oriented x 3 Apperance: + disheveled Eye Contact: + fair eye contact Motor Behavior: steady gait and station Speech: normal rate/rhythm/volume of speech Affect: + blunted affect "Pretty good mood." Thought Process: goal directed thought process Thought Content: reality based without delusions Suicidal Thoughts: denies suicidal thoughts Homicidal Thoughts: denies homicidal thoughts Hallucinations: + auditory hallucinations (The patient reports that he has not experienced any auditory hallucinations since yesterday and notes that these are much improved.) Cognition: recent memory grossly intact, remote memory grossly intact and language grossly intact Estimated Intelligence: + below average estimated intelligence Insight: + fair insight Judgement: + fair judgement Vital Signs (Past 24 Hours) Last Vital Signs Temp 36.0 C L 01/13/19 06:35 Pulse 80 01/13/19 06:35 Resp 18 01/13/19 06:35 BP 160/92 H 01/13/19 06:35 Pulse Ox 95 01/08/19 10:24 Principal Diagnosis Schizoaffective disorder. Psychiatric Data During the course of hospitalization the patient was offered various modalities of psychiatric treatment and education. He acknowledges that he had not been adherent with his outpatient medications prior to admission. That circumstance, as well as the fact that he had, as he put it, "[fallen] off the wagon"by consuming alcohol seems to have precipitated the circumstances that led to the admission. We placed the patient back on the medications that he had reportedly responded favorably to in the past, namely quetiapine and venlafaxine. Once back on his medications, the patient's thinking became more clear and his auditory hallucinations essentially stopped. He reports that he no longer is experiencing auditory hallucinations and that he had not heard any "voices" for the past 24 hours. He also tells us that he understands that the voices "are not real" and that he does not have to listen to, nor does he have to follow anything that they may say to him. The patient also spontaneously recognizes the connection between adherence with medication and relative freedom from perceptual disturbances. He notes that he is not having any thoughts of suicide and is not having any causing physical harm to the person or property of others. He was also able to tell us that he realizes that he needs to avoid alcohol because the use of alcohol interferes with his psychiatric treatment and also can precipitate depression. He was able to correctly identify the names of his psychiatric medications, the general purpose of each, and correctly identified the dose schedule. The patient tolerated his psychiatric medications well and reported no side effects. A plan for the future may be to convert the patient to a Depo form of a psychiatric medication, such as Risperdal Consta, given his history of periodic medication nonadherence. Day of Discharge Assessment On the day of discharge, the patient was pleasant and cooperative with the discharge assessment. He is somewhat disheveled, but otherwise is appropriately dressed and groomed. His speech is slightly garbled, but is spontaneous and delivered at a normal rate and rhythm. Abnormal involuntary movements are identified, with foot tapping (predominantly right) and occasional pill-rolling in his hands bilaterally. The patient tells us that he is not aware of these movements bother him. He reports that his mood is good. The patient's affect is somewhat blunted, but he laughs appropriately several times during the encounter and was fairly engaging. No delusional material was identified and the patient's thought content. He tells us that he is looking forward to getting back home and continue treatment on an outpatient basis. At discharge, the patient reports that he has not experienced any "voices" for about the past 24 hours, and notes that prior to that the intensity and frequency of the voices have diminished. He reports that he was no longer hearing command hallucinations and, further, recognizes that the voices are "not real" and her to be ignored if and when they occur. He also has, "I do not let them make me to do anything that I do not want to do." He denies any suicidal ideations, aunts, similarly, he denies any thoughts of causing physical harm to the person or property of others. Transition of Care Transition Of Care Record: was reviewed with the patient Advance Directives Advance Directives Information Provided: Yes Advance Directives: No Mental Health Advance Directive: No Advance Directives on File: No Living Will: No Power of Dispatcher Tugboat: No Advance Directives Reason:: Declines as Mental Health Visit. Risk Factors Assessment Chronic mental illness. Alcohol abuse. Psychotic illness. Limited social supports. Male: Yes : Yes Do You Have Access To A Gun?: No Health Problems: Yes Mental Health Diagnoses: Yes Substance Use Disorders: Yes Previous Attempt: Yes Previous Attempt; Highly Lethal: No Previous Attempt; Planned: No Previous Attempt; Didn't Tell Anyone: Yes Family History of Suicide: No Previous Psychiatric Hospitalization: Yes Hopelessness: Yes Smoker: Yes Protective Factors Assessment Church Beliefs: Yes : No Responsible for Young Children: No Employed: No Stable Relationships: No Supportive Family: No Good Rapport with Provider: No Tobacco Cessation at Discharge Tobacco Cessation Medication Prescribed at Discharge: Not Applicable/Non-Smoker Total Time Total Time Spent: Greater Than 30 Minutes Total Time Includes: Examination of the patient, Discharge Planning, Medication Reconciliation and Communication with other providers Discharge Data Lab Results 01/08/19 01/08/19 01/08/19 02:54 02:54 02:54 WBC 6.58 RBC 4.54 L Hgb 14.8 Hct 41.9 L MCV 92.3 MCH 32.6 MCHC 35.3 RDW Std Deviation 49.1 H RDW Coeff of Hayden 14.5 Plt Count 177 MPV 10.9 H Immature Gran % (Auto) 0.2 Neut % (Auto) 66.0 Lymph % (Auto) 25.8 [place] % (Auto) 6.2 Eos % (Auto) 1.5 Baso % (Auto) 0.3 Immature Gran # (Auto) 0.01 Neut # (Auto) 4.34 Lymph # (Auto) 1.70 [place] # (Auto) 0.41 Eos # (Auto) 0.10 Baso # (Auto) 0.02 Sodium 137 Potassium 3.7 Chloride 104 Carbon Dioxide 24 Anion Gap 9.0 BUN 12 Creatinine 0.97 Est Cr Clr Drug Dosing 79.8 Est GFR ( Amer) 85.7 Est GFR (Non-Af Amer) 73.9 BUN/Creatinine Ratio 12.3 Glucose 82 Fasting Glucose Calcium 8.3 L Total Bilirubin 0.7 AST 25 ALT 25 Alkaline Phosphatase 107 Total Protein 7.2 Albumin 3.9 Globulin 3.3 Albumin/Globulin Ratio 1.2 Triglycerides Cholesterol LDL Cholesterol, Calc VLDL Cholesterol, Calc HDL Cholesterol Cholesterol/HDL Ratio Folate TSH 4.410 Urine Color Urine Appearance Urine pH Ur Specific [place] Urine Protein Urine Glucose (UA) Urine Ketones Urine Blood Urine Nitrite Urine Bilirubin Urine Urobilinogen Ur Leukocyte Esterase Salicylates < 1.7 L Urine Opiates Screen Ur Methadone, Qual Acetaminophen < 2 L Urine Barbiturates Ur Phencyclidine (PCP) U Amphetamin/Meth Scrn MDMA (Ecstasy) Screen U Benzodiazepines Scrn Ur Cocaine Metabolite U Marijuana (THC) Screen Ethyl Alcohol mg/dL 01/08/19 01/08/19 01/08/19 02:54 05:32 05:32 WBC RBC Hgb Hct MCV MCH MCHC RDW Std Deviation RDW Coeff of Hayden Plt Count MPV Immature Gran % (Auto) Neut % (Auto) Lymph % (Auto) [place] % (Auto) Eos % (Auto) Baso % (Auto) Immature Gran # (Auto) Neut # (Auto) Lymph # (Auto) [place] # (Auto) Eos # (Auto) Baso # (Auto) Sodium Potassium Chloride Carbon Dioxide Anion Gap BUN Creatinine Est Cr Clr Drug Dosing Est GFR ( Amer) Est GFR (Non-Af Amer) BUN/Creatinine Ratio Glucose Fasting Glucose Calcium Total Bilirubin AST ALT Alkaline Phosphatase Total Protein Albumin Globulin Albumin/Globulin Ratio Triglycerides Cholesterol LDL Cholesterol, Calc VLDL Cholesterol, Calc HDL Cholesterol Cholesterol/HDL Ratio Folate TSH Urine Color Yellow Urine Appearance Clear Urine pH 5.0 Ur Specific Mesa 1.010 Urine Protein Negative Urine Glucose (UA) Negative Urine Ketones Negative Urine Blood Negative Urine Nitrite Negative Urine Bilirubin Negative Urine Urobilinogen Negative Ur Leukocyte Esterase Negative Salicylates Urine Opiates Screen Neg Ur Methadone, Qual Neg Acetaminophen Urine Barbiturates Neg Ur Phencyclidine (PCP) Neg U Amphetamin/Meth Scrn Neg MDMA (Ecstasy) Screen Neg U Benzodiazepines Scrn Neg Ur Cocaine Metabolite Neg U Marijuana (THC) Screen Neg Ethyl Alcohol mg/dL 181.0 H 01/08/19 01/08/19 01/11/19 12:12 13:12 08:03 WBC RBC Hgb Hct MCV MCH MCHC RDW Std Deviation RDW Coeff of Hayden Plt Count MPV Immature Gran % (Auto) Neut % (Auto) Lymph % (Auto) [place] % (Auto) Eos % (Auto) Baso % (Auto) Immature Gran # (Auto) Neut # (Auto) Lymph # (Auto) [place] # (Auto) Eos # (Auto) Baso # (Auto) Sodium Potassium Chloride Carbon Dioxide Anion Gap BUN Creatinine Est Cr Clr Drug Dosing Est GFR ( Amer) Est GFR (Non-Af Amer) BUN/Creatinine Ratio Glucose Fasting Glucose 110 H Calcium Total Bilirubin AST ALT Alkaline Phosphatase Total Protein Albumin Globulin Albumin/Globulin Ratio Triglycerides 120 Cholesterol 158 LDL Cholesterol, Calc 84 VLDL Cholesterol, Calc 24 HDL Cholesterol 50 Cholesterol/HDL Ratio 3 Folate Cancelled > 24.00 TSH Urine Color Urine Appearance Urine pH Ur Specific Mesa Urine Protein Urine Glucose (UA) Urine Ketones Urine Blood Urine Nitrite Urine Bilirubin Urine Urobilinogen Ur Leukocyte Esterase Salicylates Urine Opiates Screen Ur Methadone, Qual Acetaminophen Urine Barbiturates Ur Phencyclidine (PCP) U Amphetamin/Meth Scrn MDMA (Ecstasy) Screen U Benzodiazepines Scrn Ur Cocaine Metabolite U Marijuana (THC) Screen Ethyl Alcohol mg/dL Hospital Course (1) Schizoaffective disorder: 01/08 - The patient was [facility] on q15 min checks (behavioral with suicide precautions) for safety. The patient will participate in group, recreational, and milieu therapies and will be offered additional individual and family sessions as clinically appropriate. Risks/benefits/alternatives were reviewed re: antipsychotics for mood and/or psychosis. Discussion included but was not limited to metabolic side effects, risks of TD and suicidal thoughts. Abnormal motor movements at baseline. Hold order for fasting glucose and lipid panel ordered for baseline monitoring as reports having multiple in past 6 months. Restart Seroquel 200 mg this hs and monitor movements. Continue Effexor XR 150 mg qam, already received dose in ED and desires to start at previous dose rather than retitrate. 01/09 - Titrating quetiapine to 300mg this evening after review of risks and benefits. Continue venlafaxine 150mg daily. - AIMS completed today, and can be repeated later in stay - pt stating his alcohol withdrawal symptoms are the cause of his pronounced tremor and restlessness. AIMS=2; with display of perioral pouting, foot tapping/squirming. Awareness of 1; not causing distress. Pt is edentulous. - Pt requesting further titration of quetiapine, as had been historically effective at 400mg to resolve AH. Reviewed risks and benefits, in light of current concerns for movement disorder. Pt verbalized understanding of risks and states he has been told this in the past. Pt attributing his current restless movements to withdrawal symptoms. He verbalized desire to continue titration of quetiapine to 300mg this evening. Verbalizing awareness that movements may worsen, or even become permanent. Informed we would continue to monitor for worsening movement disorder. 01/10 - Increase quetiapine to 400mg HS to target mood and auditory hallucinations. Order fasting lipid profile and glucose for tomorrow morning for monitoring on an atypical antipsychotic. 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 He also indicates he does not have a current psychiatrist, and has been "going to crisis." Will explore options for outpatient psychiatry - perhaps his CM can assist? - AIMS: Patient did not want to participate in evaluation, stating he doesn't have abnormal movements. He is edentulous, but appears to have involuntary movements of upper and lower extremities, mouth and possibly tongue. No tremor visible at rest or with outstretched hands. No abnormal trunk movements noted. - Explore options for increased socialization - goes to his local senior center, AA meetings. Denies having any friends/family (sister hasn't spoken to him in 20 years, many friends have ). 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 -For the time being, the patient's primary care provider will function in the role of psychiatrist for the patient. He is to be referred for outpatient services (2) Alcohol intoxication: 01/08--Brief intervention was offered and accepted. Intervention was greater than 5 min in length and included assessing readiness to quit, advice on how to reduce or abstain from alcohol, and to set a specific goal for this hospitalization. material requirements worker will also assist in anticipating barriers to sobriety and in problem-solving for solutions to those problems while arranging for referral to appropriate treatment. The patient reports he does not drink when stable on his medications which he came here to resume. He plans to continue with AA, states he does not have a sponsor. The patient is advised to abstain from alcohol consumption due to depressant effects and risk of interaction with prescription medications. AWSS protocol with lowest loading dose of Neurontin as I do not want sedation to impair gait further than abnormal motor movements already are. 01/10--Not scoring, denies withdrawal symptoms, discontinue AWSS. --Patient plans to resume AA and abstain from alcohol. 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 We discussed anticipation in self-help groups such as Alcoholics Anonymous, and the patient tells us that he plans to resume AA upon return to [place]. Mental Health & Subst Abuse Tx Therapist Name of Therapist: None Staff Registered Nurse Name of Staff Registered Nurse: Case Management Unit Phone Number for Staff Registered Nurse: [phone] Time of Appointment with Staff Registered Nurse: Drop in hours: Cytology Laboratory Manager, [facility], [place] - Mondays Case Management Appointment Comment: Drop in hours: [place], [address] [facility] - Post Discharge Appointments Primary Care Physician Name Of Family Doctor: [facility] - Dr. Quintero Primary Care Date of Appointment with PCP: 01/20/19 Time of Appointment with PCP: 2:00 p.m. 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 Pending Studies at Discharge: No Stand-Alone Forms: My [facility], Smoking Cessation, Suicide Prevention Resources Medications and DC Order Prescriptions: Continued ranitidine HCl 300 mg tablet 300 mg PO DAILY RF: 0 diltiazem HCl [Cartia XT] 240 mg capsule,extended release 24hr 240 mg PO DAILY RF: 0 venlafaxine 150 mg capsule,extended release 24hr 150 mg PO DAILY RF: 0 clopidogrel 75 mg tablet 75 mg PO DAILY RF: 0 pantoprazole 40 mg tablet,delayed release (DR/EC) 40 mg PO DAILY RF: 0 losartan 100 mg tablet 100 mg PO DAILY RF: 0 quetiapine 400 mg tablet 400 mg PO HS RF: 0 Discharge Orders: Discharge Order (Routine); Ordered 01/13/19 Ordered By: Jc Prado Admission Data Admit Date/Time: 01/08/19 11:22 Attending Provider: Odessa Peres Admit Provider: Sakshi Pratt Primary Care Provider: PCP,NO Other Interventions: PSY Interdisciplinary Discharge Planning Last Done: 01/13/19 11:40 [place] [address] D/C day mgmt > 30 min Patient Type Established History Expanded Problem Focused Exam Expanded Problem Focused Medical Decision Making Moderate Complexity Diagnoses Schizoaffective disorder F25.9 Schizoaffective disorder type: unspecified Alcohol intoxication F10.929 Complication of substance-induced condition: with unspecified complication Time Spent (min) 60
[2019-01-13 12:26] VITALS: BP 150/91
[2019-01-13 12:29] VITALS: PULSE 89
== END 2019-01-13 13:00 | disposition home or self-care (01) | DRG 885 ==
LOC: ED 02:27 → 3S 11:16

== ENCOUNTER 2020-03-23 08:52 | Inpatient (IN) ==
[2020-03-23] MEDS ORDERED: NITROGLYCERIN 2% OINTMENT 30GM TUBE EXT STA (09:14)
--- NOTE | 2020-03-23 09:19 | Emergency Department Note ---
History of Present Illness General Chief complaint: Shortness of Breath/Dyspnea Stated complaint: SOB Time Seen by Provider: 03/23/20 09:00 Source: patient Mode of arrival: ambulatory Limitations: no limitations History of Present Illness Provider complaint: shortness of breath Onset (ago): day(s) 1 Associated symptoms: + cough and + shortness of breath Treatments prior to arrival: none This is an 79-year-old male presents the emergency department via private vehicle after worsening shortness of breath. Patient states it feels like when he has previously had congestive heart failure. Patient states he does have a history of atrial fibrillation and takes Eliquis daily. Patient states last night he noted that he could not lay down to go to sleep. He states he is also noticed increased lower extremity edema. Patient does not check his weight daily. Patient does see a assembler [employer] in [place] as he is lives out of the area. Patient denies any fevers or chills, cough or cold symptoms. Patient states he has a mild cough with the shortness of breath. He states the shortness of breath is also worse with any exertion. Patient states 5 or 6 days ago he stopped taking his psychiatric medications. And he has not taken any of his heart medications since last night. Patient is a former smoker, however he does not use any inhalers or oxygen at home. Patient found to be hypoxic on room air on arrival. Pt seen during a time of high acuity and national emergency pandemic while wearing PPE. Home Medications Medication Instructions Recorded Confirmed Type quetiapine 400 mg PO DAILY 01/08/19 03/23/20 History apixaban [Eliquis] 5 mg PO BID 03/23/20 03/23/20 History cyanocobalamin (vitamin B-12) 1,000 mcg PO DAILY 03/23/20 03/23/20 History diltiazem HCl 360 mg PO DAILY 03/23/20 03/23/20 History furosemide 40 mg PO DAILY 03/23/20 03/23/20 History isosorbide mononitrate 30 mg PO DAILY 03/23/20 03/23/20 History losartan 50 mg PO DAILY 03/23/20 03/23/20 History omeprazole 20 mg PO BID 03/23/20 03/23/20 History venlafaxine 225 mg PO DAILY 03/23/20 03/23/20 History venlafaxine 225 mg PO QAM 03/23/20 03/23/20 History venlafaxine 225 mg PO QAM 03/23/20 03/23/20 History venlafaxine 225 mg PO QAM 03/23/20 03/23/20 History Allergies Allergy/AdvReac Type Severity Reaction Status Date / Time amoxicillin Allergy Mild RASH Verified 01/08/19 04:05 clindamycin Allergy Mild RASH Verified 01/08/19 04:05 latex Allergy Mild RASH Verified 01/08/19 04:05 aspirin Allergy Unknown Unknown Verified 01/08/19 04:05 Penicillins Allergy Unknown RASH FROM Verified 01/08/19 04:05 AMOXICILLIN, BUT PCN IS OK haloperidol AdvReac Intermediate PT STATES Verified 01/08/19 04:05 HE LOCKS UP metronidazole AdvReac Mild ABDOM PAIN Verified 01/08/19 04:05 &CRAMPS olanzapine AdvReac Mild PANCREATITI Verified 01/08/19 04:05 S lithium AdvReac Unknown SENSITIVE Verified 01/08/19 04:05 TO IT BECOMES TOXIC Past Med/Surg History Medical History (Updated 03/23/20 @ 16:25 by Lesley Ramey DO) Chronic atrial fibrillation Depression GERD (gastroesophageal reflux disease) Hypertension Loose stools Schizophrenia Suicidal ideation Family History (Updated 03/23/20 @ 14:38 by Selena Donnelly PA-C) Father Cancer colon Other Family history non-contributory Social History Smoking Status: Former smoker Tobacco Type: Cigarettes Preferred Language: Irish Communication Ability: Effective Retread Supervisor Required: No Beliefs That Will Affect Care: None Feels Safe at Home: Yes Assistive Devices: None Review of Systems See HPI for pertinent positives & negatives. and A total of 10 systems reviewed and were otherwise negative Physical Exam Vital Signs Vital Signs - 24 hr 03/23/20 08:55 03/23/20 09:26 03/23/20 11:12 Temperature 35.6 C L Temperature Source Skin Oral Pulse Rate 94 H Pulse Rate [Left] 71 Pulse Rhythm [Left] Regular Pulse Strength [Left] Normal Respiratory Rate 28 H 20 Respiratory Effort / Characteristics Spontaneous Labored Non-Labored Spontaneous Respiratory Depth Retractive Normal Respiratory Pattern Tachypnea Blood Pressure 190/104 H Blood Pressure [Left Arm] 186/109 H Blood Pressure Mean 132 Blood Pressure Mean [Left Arm] 134 Blood Pressure Position [Left Arm] Lying Pulse Oximetry 84 L 99 Oxygen Delivery Method Room Air Nasal Cannula Nasal Cannula Oxygen Flow Rate 2 2 Sepsis Recent Fever Within 48 Hours No Sepsis New/Unexplained Change in Mental Status N/A Sepsis Action Taken by Nursing No Action Required 03/23/20 15:08 Temperature Temperature Source Pulse Rate Pulse Rate [Left] 62 Pulse Rhythm [Left] Pulse Strength [Left] Respiratory Rate 18 Respiratory Effort / Characteristics Non-Labored Spontaneous Respiratory Depth Normal Respiratory Pattern Blood Pressure Blood Pressure [Left Arm] 184/101 H Blood Pressure Mean Blood Pressure Mean [Left Arm] 128 Blood Pressure Position [Left Arm] Lying Pulse Oximetry 100 Oxygen Delivery Method Nasal Cannula Oxygen Flow Rate 2 Sepsis Recent Fever Within 48 Hours Sepsis New/Unexplained Change in Mental Status Sepsis Action Taken by Nursing GENERAL: alert, ill appearing, well nourished, no distress, non-toxic, obese EYE EXAM: normal conjunctiva, PERRL and EOM's grossly intact OROPHARYNX: no exudate, no erythema, lips, buccal mucosa, and tongue normal and mucous membranes are moist NECK: supple, no nuchal rigidity, no adenopathy, non-tender LUNGS: Clear but decreased to auscultation. Normal chest wall mechanics, no w/r/r HEART: no murmurs, S1 normal and S2 normal ABDOMEN: abdomen soft, non-tender, normo-active bowel sounds, no masses, no rebound or guarding. BACK: Back is symmetrical on inspection and there is no deformity, no midline tenderness, no CVA tenderness. SKIN: no rashes and no bruising UPPER EXTREMITIES: upper extremities are grossly normal. FROM, nml pulses b/l. LOWER EXTREMITIES: 1+ pitting edema. FROM, nml pulses b/l. NEURO EXAM: Normal sensorium, cranial nerves II-XII grossly intact, normal speech, no gross weakness of arms, no gross weakness of legs. Gross sensation intact. Course Course 1150: Pt updated on results. States feels better with oxygen in place. Pt still hypertensive. RN just giving lasix at this time. COVID pending. 1222: Discussed with Dr. Pardo. COVID negative. 1402: Patient still hypertensive, no additional orders at placed by the hospitalist team. We will add patient's home Cardizem. Administered Medications Discontinued Medications Furosemide (Furosemide 40 Mg/4 Ml Vial) 40 mg IV NOW STA Stop: 03/23/20 11:12 Last Admin: 03/23/20 11:52 Dose: 40 mg Documented by: [id number] Nitroglycerin (Nitroglycerin 2% Ointment 30gm Tube) 1 inch EXT NOW STA Stop: 03/23/20 09:15 Last Admin: 03/23/20 09:45 Dose: 1 inch Documented by: [id number] Medical Decision Making Differential Diagnosis Differential diagnoses includes but is not limited to pneumonia, bronchitis, COPD/Asthma exacerbation, pneumothorax, pulmonary embolism, congestive heart failure, acute coronary syndrome Medical Records Attestation: I reviewed the patient's medical records. Home Medications Current Medication List: was personally reviewed by me Laboratory Data Attestation: I reviewed the patient's lab results. Result diagrams: 03/23/20 10:37 03/23/20 10:37 Lab Results 03/23/20 03/23/20 03/23/20 Range/Units 10:37 10:37 10:37 WBC 6.13 (4.8-10.8) K/uL RBC 3.88 L (4.7-6.1) M/uL Hgb 12.4 L (14.0-18.0) g/dL Hct 36.0 L (42-52) % MCV 92.8 (80-100) fL MCH 32.0 (25-34) pg MCHC 34.4 (32-36) g/dL RDW Std Deviation 50.6 H (36.4-46.3) fL RDW Coeff of Hayden 14.9 H (11.5-14.5) % Plt Count 145 (130-400) K/uL MPV 10.5 H (7.4-10.4) fL Immature Gran % (Auto) 0.2 % Neut % (Auto) 78.2 % Lymph % (Auto) 12.6 % [place] % (Auto) 7.7 % Eos % (Auto) 1.3 % Baso % (Auto) 0.0 % Neut # (Auto) 4.80 (1.4-6.5) K/uL Lymph # (Auto) 0.77 L (1.2-3.4) K/uL [place] # (Auto) 0.47 (0.11-0.59) K/uL Eos # (Auto) 0.08 (0-0.5) K/uL Baso # (Auto) 0.00 (0-0.2) K/uL Immature Gran # (Auto) 0.01 (0.00-0.02) K/uL PT 11.0 (9.0-12.0) Seconds INR 1.0 (0.9-1.1) Sodium 142 (136-145) mmol/L Potassium 3.5 (3.5-5.1) mmol/L Chloride 107 (98-107) mmol/L Carbon Dioxide 30 (21-32) mmol/L Anion Gap 5.0 (3-11) BUN 12 (7-18) mg/dl Creatinine 0.83 (0.6-1.4) mg/dl Est Cr Clr Drug Dosing 90.2 ml/min Est GFR ( Amer) 96.3 Est GFR (Non-Af Amer) 83.1 BUN/Creatinine Ratio 14.9 (10-20) Glucose 108 H (70-99) mg/dl Calcium 8.7 (8.5-10.1) mg/dl Magnesium 1.8 (1.8-2.4) mg/dl Total Bilirubin 0.6 (0.2-1) mg/dl AST 20 (15-37) U/L ALT 36 (12-78) U/L Alkaline Phosphatase 73 (45-117) U/L Troponin I < 0.015 (0-0.045) ng/ml NT-Pro-B Natriuret Pep 1634 (0-1800) pg/ml Total Protein 6.4 (6.4-8.2) gm/dl Albumin 3.2 L (3.4-5.0) gm/dl Globulin 3.2 (2.5-4.0) gm/dl Albumin/Globulin Ratio 1.0 (0.9-2) Lipase 161 (73-393) U/L COVID-19 Eval Order SARS-CoV-2 (PCR) (Negative) Influenza Type A (PCR) (Neg) Influenza Type B (PCR) (Neg) RSV (RT-PCR) (Neg) 03/23/20 03/23/20 Range/Units 11:10 11:10 WBC (4.8-10.8) K/uL RBC (4.7-6.1) M/uL Hgb (14.0-18.0) g/dL Hct (42-52) % MCV (80-100) fL MCH (25-34) pg MCHC (32-36) g/dL RDW Std Deviation (36.4-46.3) fL RDW Coeff of Hayden (11.5-14.5) % Plt Count (130-400) K/uL MPV (7.4-10.4) fL Immature Gran % (Auto) % Neut % (Auto) % Lymph % (Auto) % [place] % (Auto) % Eos % (Auto) % Baso % (Auto) % Neut # (Auto) (1.4-6.5) K/uL Lymph # (Auto) (1.2-3.4) K/uL [place] # (Auto) (0.11-0.59) K/uL Eos # (Auto) (0-0.5) K/uL Baso # (Auto) (0-0.2) K/uL Immature Gran # (Auto) (0.00-0.02) K/uL PT (9.0-12.0) Seconds INR (0.9-1.1) Sodium (136-145) mmol/L Potassium (3.5-5.1) mmol/L Chloride (98-107) mmol/L Carbon Dioxide (21-32) mmol/L Anion Gap (3-11) BUN (7-18) mg/dl Creatinine (0.6-1.4) mg/dl Est Cr Clr Drug Dosing ml/min Est GFR ( Amer) Est GFR (Non-Af Amer) BUN/Creatinine Ratio (10-20) Glucose (70-99) mg/dl Calcium (8.5-10.1) mg/dl Magnesium (1.8-2.4) mg/dl Total Bilirubin (0.2-1) mg/dl AST (15-37) U/L ALT (12-78) U/L Alkaline Phosphatase (45-117) U/L Troponin I (0-0.045) ng/ml NT-Pro-B Natriuret Pep (0-1800) pg/ml Total Protein (6.4-8.2) gm/dl Albumin (3.4-5.0) gm/dl Globulin (2.5-4.0) gm/dl Albumin/Globulin Ratio (0.9-2) Lipase (73-393) U/L COVID-19 Eval Order CovFluRsv at [facility] SARS-CoV-2 (PCR) NEGATIVE (Negative) Influenza Type A (PCR) Negative (Neg) Influenza Type B (PCR) Negative (Neg) RSV (RT-PCR) Negative (Neg) Imaging Data Radiologist's Impression: XR chest 1V portable HISTORY: Shortness of breath. COMPARISON: Chest 03/06/2008. FINDINGS: No pneumothorax. No pleural effusions. The cardiac silhouette is mildl y enlarged. There is progressive interstitial/vascular thickening. This favors mild initial pulmonary edema. IMPRESSION: Cardiomegaly with mild interstitial pulmonary edema. ACT 112: Negative or not required by law. Electronically signed by: Juan Fitzgerald M.D. 03/23/2020 9:36 AM ECG Data Attestation: I personally reviewed and interpreted this ECG as follows: Indication: + SOB/dyspnea Rate (beats per minute): 74 Rhythm: + atrial fibrillation ECG Intervals/blocks: + Normal QRS and + Normal QT ECG Keyes: + Normal ECG ST segments: + Normal ST segments Blood Pressure Blood Pressure Findings: Elevated blood pressure MDM Narrative This is an 79-year-old male who presents complaining of increased shortness of breath that began last night. Patient states it feels similar to prior episode of congestive heart failure. Patient does have atrial fibrillation and takes Cardizem, as well as Eliquis for anticoagulation. Patient denies any recent julián nge in diet, does admit to being noncompliant with his psychiatric medications over the last 5 to 6 days. Patient states he noticed last night he could not lay flat to breathe, and today his breathing was markedly worse with any exertion. Patient states he has noticed over the last several days increased lower extremity edema. Patient states his assembler [employer] is in [place]. Patient did not take his usual morning Lasix this morning. Patient was given nitro as well as a dose of IV Lasix. Patient states his breathing was improved with oxygen and application of nitro. Case was discussed with hospitalist for additional evaluation management. Due to increased volume, patient was still in the emergency room for several hours and appeared to still be hypertensive, patient's home Cardizem was added until the hospitalist team could make additional recommendations. An order was placed for continuous cardiac monitoring. The monitor shows a rate of _83_ with atrial fibrillation__ rhythm. Impression & Plan Acute dyspnea, CHF (congestive heart failure), Hypoxia, Obesity, Noncompliance Discharge Plan Visit Data Chief Complaint: Shortness of Breath/Dyspnea Stated Complaint: SOB ED Provider: Lesley Ramey Discharge Problem: Acute dyspnea, CHF (congestive heart failure), Hypoxia, Obesity, Noncompliance Forms Stand Alone Forms: [facility]ingo Prescriptions Prescriptions: No Action losartan 50 mg tablet 50 mg PO DAILY RF: 0 furosemide 40 mg tablet 40 mg PO DAILY RF: 0 venlafaxine 75 mg capsule,extended release 24hr 225 mg PO DAILY RF: 0 cyanocobalamin (vitamin B-12) 1,000 mcg tablet 1,000 mcg PO DAILY RF: 0 diltiazem HCl 360 mg capsule,extended release 24hr 360 mg PO DAILY RF: 0 Eliquis 5 mg tablet 5 mg PO BID RF: 0 omeprazole 20 mg capsule,delayed release(DR/EC) 20 mg PO BID RF: 0 isosorbide mononitrate 30 mg tablet extended release 24 hr 30 mg PO DAILY RF: 0 venlafaxine 75 mg capsule,extended release 24hr 225 mg PO QAM RF: 0 venlafaxine 75 mg capsule,extended release 24hr 225 mg PO QAM RF: 0 venlafaxine 75 mg capsule,extended release 24hr 225 mg PO QAM RF: 0 quetiapine 400 mg tablet 400 mg PO DAILY RF: 0 Discharge Problem: CHF (congestive heart failure) Qualifiers: Heart failure type: unspecified Heart failure chronicity: unspecified Qualified Code(s): I50.9 - Heart failure, unspecified Obesity Qualifiers: Obesity type: unspecified obesity type Obesity classification: unspecified obesity classification Serious obesity comorbidity presence: unspecified whether serious comorbidity present Qualified Code(s): E66.9 - Obesity, unspecified
--- NOTE | 2020-03-23 09:37 | XRay Report ---
XR chest 1V portable HISTORY: Shortness of breath. COMPARISON: Chest 03/06/2008. FINDINGS: No pneumothorax. No pleural effusions. The cardiac silhouette is mildly enlarged. There is progressive interstitial/vascular thickening. This favors mild initial pulmonary edema. IMPRESSION: Cardiomegaly with mild interstitial pulmonary edema. ACT 112: Negative or not required by law. Electronically signed by: Juan Fitzgerald M.D. 03/23/2020 9:36 AM
[2020-03-23 10:56] LABS: Eosinophils # (auto) 0.08 K/uL (0-0.5); Eosinophils % (auto) 1.3 %; Hemoglobin 12.4 g/dL (14.0-18.0); Immature Granulocytes # (auto) 0.01 K/uL (0.00-0.02); Immature Granulocytes % (auto) 0.2 %; Lymphocytes # (auto) 0.77 K/uL (1.2-3.4); Lymphocytes % (auto) 12.6 %; Mean Corpuscular Hgb Conc 34.4 g/dL (32-36); Mean Corpuscular Volume 92.8 fL (80-100); Mean Platelet Volume 10.5 fL (7.4-10.4); Monocytes # (auto) 0.47 K/uL (0.11-0.59); Monocytes % (auto) 7.7 %; Neutrophils % (auto) 78.2 %; Platelet Count 145 K/uL (130-400); RDW Coefficient of Variation 14.9 % (11.5-14.5); RDW Standard Deviation 50.6 fL (36.4-46.3); Red Blood Count 3.88 M/uL (4.7-6.1); White Blood Count 6.13 K/uL (4.8-10.8)
[2020-03-23] MEDS ORDERED: FUROSEMIDE 40 MG/4 ML VIAL IV STA (11:11)
[2020-03-23 11:16] LABS: Alanine Aminotransferase 36 U/L (12-78); Albumin Level 3.2 gm/dl (3.4-5.0); Aspartate Aminotransferase 20 U/L (15-37); BUN Creatinine Ratio 14.9 (10-20); Blood Urea Nitrogen 12 mg/dl (7-18); Calcium 8.7 mg/dl (8.5-10.1); Carbon Dioxide 30 mmol/L (21-32); Chloride 107 mmol/L (98-107); Creatinine Clr Calc Pharmacy 90.2 ml/min; Est GFR (African American) 96.3; Est GFR (Non-African American) 83.1; Glucose 108 mg/dl (70-99); Lipase 161 U/L (73-393); Magnesium 1.8 mg/dl (1.8-2.4); Potassium 3.5 mmol/L (3.5-5.1); Sodium 142 mmol/L (136-145)
[2020-03-23 11:21] LABS: Alkaline Phosphatase 73 U/L (45-117); Bilirubin,Total 0.6 mg/dl (0.2-1); Globulin 3.2 gm/dl (2.5-4.0); NT Pro B Type Natriuretic Pept 1634 pg/ml (0-1800); Total Protein 6.4 gm/dl (6.4-8.2); Troponin I < 0.015 ng/ml (0-0.045)
[2020-03-23 12:19] LABS: Influenza A virus by PCR Negative (Neg); Influenza B virus by PCR Negative (Neg); RSV by PCR Negative (Neg); SARS CoV2 RNA(COVID-19) InHosp NEGATIVE (Negative)
--- NOTE | 2020-03-23 13:32 | History & Physical Report ---
Date of Service March 23, 2020 Assessment & Plan (1) Diastolic CHF, acute on chronic: - Admit to [facility] tele - Trend cardiac biomarkers, initial set was negative, BNP negative but borderline elevated - CXR reviewed with pulmonary edema - EKG reviewed as above, afib, rate controlled - Check 2 D echo- report reviewed from August 2019 showing LVEF of 60-64%, wall motion is normal, left atrial enlargement with diastolic left ventricular dysfunction, no evidence of pulmonary hypertension. - Cardiology consult - Continue diuresis with lasix 40 mg IV BID, will add potassium replacement with aggressive diuresis - out nearly 2 L in the ER since having initial dose of Lasix 40 mg IV. Using bedside urinal without difficulty. - Strict I's/O's - Low-sodium diet with fluid restriction - PT/OT consulted (2) Hypoxia: With pulse ox of 84% on room air on arrival, tachypnea, diaphoresis Improved on 2 L nasal cannula with IV Lasix Continue to diurese as above (3) Hypertension: - Significantly hypertensive on admission, SBP low 200s at bedside over 100 - Missed all of his morning medications including diltiazem 360 mg daily, Imdur 90 mg daily, losartan 50 mg daily-will administer these medications now in ad dition to Lasix (4) Chronic atrial fibrillation: -Follow echo -Continue Eliquis 5 mg twice daily, rate controlled with diltiazem -EKG as above (5) Schizoaffective disorder: - History of such, currently hearing auditory hallucinations which are threatening, one male voice, has progressively worsened since being off medications for about 4-5 days-he denies running out of medications just felt that they were not working for him anymore. It appears that his Effexor was recently increased in the beginning of January to 225 mg daily. Reports his sleep has been very poor recently worse since stopping Seroquel 400 mg HS, and his main complaint is issues falling asleep. - Denies SI/HI - Worsening anhedonia, lack of family and friends, appears to have lack of support system in place currently - Consult psych -we will plan to resume Effexor and Seroquel as normally scheduled at home doses - Follows with psychiatry in [place], was in to see them approximately 1 month ago, recommend follow-up upon discharge to see psychiatrist about medication changes/increases. Would encourage counseling as an outpatient as well. (6) Depression: -As above (7) GERD (gastroesophageal reflux disease): -Continue omeprazole 20 mg twice daily (8) Obesity: BMI 36.4 Needs weight loss (9) DVT prophylaxis: -Eliquis CODE: Full-discussed at bedside Dispo: From home, likely to remain in the hospital x 2 days. CM to assist with discharge home, the patient does not have car to drive him back to [place] as he was planning on catching a bus. History of Present Illness Chief Complaint: Shortness of breath Primary Care Provider: NO PCP This is an 79 F with PMHx of chronic diastolic CHF, HTN, afib on Eliquis, GERD, schizoaffective disorder, and depression who presents with acute shortness of br eath to the ER. He reports that he developed shortness of breath yesterday and was unable to lie flat to sleep, therefore presented to the hospital earlier this morning as he felt terrible. Patient typically lives near [place]. 2 days ago he was driving a vehicle here as a favor for a friend and was planning on taking the bus home yesterday however missed the bus and then his respiratory symptoms worsened. He notes worsening shortness of breath on exertion with ADLs, worsening leg swelling over the past few days, and feels bloated in his abdomen. He does not eat foods with large amounts of salt, and does not drink much fluids because of his heart. He reports that his dry weight is around 245 to 247 pounds, but does not weigh himself daily therefore cannot determine if his weight has increased recently. He did not take any of his medications this morning which included Imdur, diltiazem, losartan, and Eliquis. Patient also notes that he stopped taking his psychiatric medications about 4 to 5 days ago because he did not feel that his mood was improving anymore from them. He takes Seroquel 400 mg at night and Effexor 225 mg in the morning. It appears that this medication was recently increased in January. He admits to having auditory hallucinations currently. The voice that he hears typically is a male, threatening currently telling him to harm himself. He denies any suicidal or homicidal ideations. The voice has become more prominent since he stopped his medications. He admits to anhedonia, reports that he does not have any family who speaks to him (he does have a sister but they are estranged), no friends, and lives alone. 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 He is a remote smoker over 30 years ago, and does not drink alcohol. He follows with a psychiatric clinic in [facility]. His PCP is a Dr. Quintero, follows with cardiology and psychiatry with [facility] at [facility]. Family history: Patient's father at age 59 due to colon cancer Mother left his family when he was 8 years old and cannot provide information regarding her medical history Sister, unknown as they are estranged. Social history: See above. Allergies Allergy/AdvReac Type Severity Reaction Status Date / Time amoxicillin Allergy Mild RASH Verified 01/08/19 04:05 clindamycin Allergy Mild RASH Verified 01/08/19 04:05 latex Allergy Mild RASH Verified 01/08/19 04:05 aspirin Allergy Unknown Unknown Verified 01/08/19 04:05 Penicillins Allergy Unknown RASH FROM Verified 01/08/19 04:05 AMOXICILLIN, BUT PCN IS OK haloperidol AdvReac Intermediate PT STATES Verified 01/08/19 04:05 HE LOCKS UP metronidazole AdvReac Mild ABDOM PAIN Verified 01/08/19 04:05 &CRAMPS olanzapine AdvReac Mild PANCREATITI Verified 01/08/19 04:05 S lithium AdvReac Unknown SENSITIVE Verified 01/08/19 04:05 TO IT BECOMES TOXIC Home Medications Medication Instructions Recorded Confirmed Type quetiapine 400 mg PO DAILY 01/08/19 03/23/20 History apixaban [Eliquis] 5 mg PO BID 03/23/20 03/23/20 History cyanocobalamin (vitamin B-12) 1,000 mcg PO DAILY 03/23/20 03/23/20 History diltiazem HCl 360 mg PO DAILY 03/23/20 03/23/20 History furosemide 40 mg PO DAILY 03/23/20 03/23/20 History isosorbide mononitrate 90 mg PO DAILY 03/23/20 03/23/20 History losartan 50 mg PO DAILY 03/23/20 03/23/20 History omeprazole 20 mg PO BID 03/23/20 03/23/20 History venlafaxine 225 mg PO QAM 03/23/20 03/23/20 History Past Med/Surg History Medical History (Updated 03/23/20 @ 18:00 by Damaris Pardo MD) CHF (congestive heart failure) Chronic atrial fibrillation Depression GERD (gastroesophageal reflux disease) Hypertension Loose stools Obesity Schizoaffective disorder Schizophrenia Suicidal ideation Surgical History No pertinent past surgical history Family History Father Cancer colon Other Family history non-contributory Social History Smoking Status: Former smoker Tobacco Type: Cigarettes Age Quit Using Tobacco: 49; packs per day: 1; Years Smoked: 30; Preferred Language: Brazilian Communication Ability: Effective [employer] Faculty Member Required: No Beliefs That Will Affect Care: None Feels Safe at Home: Yes Assistive Devices: None Review of Systems Review of Systems: Constitutional: No fever, sweats or chills Eyes: No diplopia, no worsening or blurred vision ENT: normal hearing, no trouble swallowing Respiratory: + Shortness of breath as per HPI, + orthopnea, +SNELL. No cough, sputum, dyspnea at rest. Cardiovascular: No chest pain, tightness or palpitations Abdomen: No pain, nausea, vomiting, diarrhea or constipation Musculoskeletal: No joint pain, calf pain, + BLE swelling Neurologic: No weakness, numbness/tingling, or balance problems Psychiatric:+ auditory hallucinations, no SI or HI. Skin: No rash or itch Physical Exam Physical Exam: General: awake, alert, no apparent distress, + morbidly obese, BMI 36.4 Head: Normocephalic, atraumatic ENT: PERRL, EOMI in right eye, + prosthetic left eye with lid droop, endentulous, nose bridge is altered, previously broken, no pharyngeal exudate, mucous membranes slightly dry. Chest: + Diminished breath sounds throughout, on 3L via NC with O2 sats in mid 90s, + faint crackles at left base. No wheeze or rales Cardiac: Irregularly irregular, rate controlled, no murmur, no JVD, normal peripheral pulses, good capillary refill Abdominal: NABS x 4 quadrants, soft, + slightly distended, nontender to palpation, no rebound or guarding Extremities: + Chronic venous stasis changes BLE, trace pitting edema over feet and ankles, no erythema, calfs nontender to palpation Psych: Normal mood and affect, admits to hearing auditory hallucinations which are threatening, denies SI/HI Neuro: AAO x 3, strength intact bilaterally and rated 5/5, no motor deficits, speech is clear, no peripheral sensory deficits Results & Data Results & Data ([facility]) Vital Signs (Past 12 Hours) Vital Signs Temp Pulse Pulse Resp BP BP Pulse Ox 03/23/20 11:12 71 20 186/109 H 99 03/23/20 08:55 35.6 C L 94 H 28 H 190/104 H 84 L Laboratory Results 03/23/20 03/23/20 03/23/20 Range/Units 11:10 11:10 10:37 WBC (4.8-10.8) K/uL RBC (4.7-6.1) M/uL Hgb (14.0-18.0) g/dL Hct (42-52) % MCV (80-100) fL MCH (25-34) pg MCHC (32-36) g/dL RDW Std Deviation (36.4-46.3) fL RDW Coeff of Hayden (11.5-14.5) % Plt Count (130-400) K/uL MPV (7.4-10.4) fL Immature Gran % (Auto) % Neut % (Auto) % Lymph % (Auto) % Independence % (Auto) % Eos % (Auto) % Baso % (Auto) % Neut # (Auto) (1.4-6.5) K/uL Lymph # (Auto) (1.2-3.4) K/uL Independence # (Auto) (0.11-0.59) K/uL Eos # (Auto) (0-0.5) K/uL Baso # (Auto) (0-0.2) K/uL Immature Gran # (Auto) (0.00-0.02) K/uL PT 11.0 (9.0-12.0) Seconds INR 1.0 (0.9-1.1) Sodium (136-145) mmol/L Potassium (3.5-5.1) mmol/L Chloride (98-107) mmol/L Carbon Dioxide (21-32) mmol/L Anion Gap (3-11) BUN (7-18) mg/dl Creatinine (0.6-1.4) mg/dl Est Cr Clr Drug Dosing ml/min Est GFR ( Amer) Est GFR (Non-Af Amer) BUN/Creatinine Ratio (10-20) Glucose (70-99) mg/dl Calcium (8.5-10.1) mg/dl Magnesium (1.8-2.4) mg/dl Total Bilirubin (0.2-1) mg/dl AST (15-37) U/L ALT (12-78) U/L Alkaline Phosphatase (45-117) U/L Troponin I (0-0.045) ng/ml NT-Pro-B Natriuret Pep (0-1800) pg/ml Total Protein (6.4-8.2) gm/dl Albumin (3.4-5.0) gm/dl Globulin (2.5-4.0) gm/dl Albumin/Globulin Ratio (0.9-2) Lipase (73-393) U/L COVID-19 Eval Order CovFluRsv at [facility] SARS-CoV-2 (PCR) NEGATIVE (Negative) Influenza Type A (PCR) Negative (Neg) Influenza Type B (PCR) Negative (Neg) RSV (RT-PCR) Negative (Neg) 03/23/20 03/23/20 Range/Units 10:37 10:37 WBC 6.13 (4.8-10.8) K/uL RBC 3.88 L (4.7-6.1) M/uL Hgb 12.4 L (14.0-18.0) g/dL Hct 36.0 L (42-52) % MCV 92.8 (80-100) fL MCH 32.0 (25-34) pg MCHC 34.4 (32-36) g/dL RDW Std Deviation 50.6 H (36.4-46.3) fL RDW Coeff of Hayden 14.9 H (11.5-14.5) % Plt Count 145 (130-400) K/uL MPV 10.5 H (7.4-10.4) fL Immature Gran % (Auto) 0.2 % Neut % (Auto) 78.2 % Lymph % (Auto) 12.6 % Independence % (Auto) 7.7 % Eos % (Auto) 1.3 % Baso % (Auto) 0.0 % Neut # (Auto) 4.80 (1.4-6.5) K/uL Lymph # (Auto) 0.77 L (1.2-3.4) K/uL Independence # (Auto) 0.47 (0.11-0.59) K/uL Eos # (Auto) 0.08 (0-0.5) K/uL Baso # (Auto) 0.00 (0-0.2) K/uL Immature Gran # (Auto) 0.01 (0.00-0.02) K/uL PT (9.0-12.0) Seconds INR (0.9-1.1) Sodium 142 (136-145) mmol/L Potassium 3.5 (3.5-5.1) mmol/L Chloride 107 (98-107) mmol/L Carbon Dioxide 30 (21-32) mmol/L Anion Gap 5.0 (3-11) BUN 12 (7-18) mg/dl Creatinine 0.83 (0.6-1.4) mg/dl Est Cr Clr Drug Dosing 90.2 ml/min Est GFR ( Amer) 96.3 Est GFR (Non-Af Amer) 83.1 BUN/Creatinine Ratio 14.9 (10-20) Glucose 108 H (70-99) mg/dl Calcium 8.7 (8.5-10.1) mg/dl Magnesium 1.8 (1.8-2.4) mg/dl Total Bilirubin 0.6 (0.2-1) mg/dl AST 20 (15-37) U/L ALT 36 (12-78) U/L Alkaline Phosphatase 73 (45-117) U/L Troponin I < 0.015 (0-0.045) ng/ml NT-Pro-B Natriuret Pep 1634 (0-1800) pg/ml Total Protein 6.4 (6.4-8.2) gm/dl Albumin 3.2 L (3.4-5.0) gm/dl Globulin 3.2 (2.5-4.0) gm/dl Albumin/Globulin Ratio 1.0 (0.9-2) Lipase 161 (73-393) U/L COVID-19 Eval Order SARS-CoV-2 (PCR) (Negative) Influenza Type A (PCR) (Neg) Influenza Type B (PCR) (Neg) RSV (RT-PCR) (Neg) Diagnostic Findings XR chest 1V portable HISTORY: Shortness of breath. COMPARISON: Chest 03/06/2008. FINDINGS: No pneumothorax. No pleural effusions. The cardiac silhouette is mildly enlarged. There is progressive interstitial/vascular thickening. This favors mild initial pulmonary edema. IMPRESSION: Cardiomegaly with mild interstitial pulmonary edema. ECG Additional Comments: 23-MAR-2020 09:26:25 [facility]-EDSTAT ROUTINE RETRIEVAL Atrial fibrillation Abnormal ECG When compared with ECG of 08-JAN-2019 02:49, No significant change was found 25mm/s 10mm/mV 150Hz 9.0.9 12SL 241 JUNIOR: 11 Referred by: REFERRED SELF Unconfirmed Vent. rate 74 BPM NJ interval * ms QRS duration 84 ms QT/QTc 418/463 ms Code Status & VTE Plan Code Status Full code-discussed with the patient at bedside Supervising Physician Co-Signing Physician Notes PA Supervision Note: I personally saw and examined the patient. I verified all torrse points and agree with ALEX Donnelly with the following exceptions and/or additions: This patient is an 79-year-old male with a history of chronic diastolic CHF, permanent atrial fibrillation on Eliquis, schizoaffective disorder and depression, GERD, here with acutely worsening shortness of breath, lower extremity edema, and inability to lie for chest sleep worsening since yesterday. He denies any chest pain. He feels his abdomen is distended as well. He has been taking his Lasix daily and avoids sodium and does not take in a lot of fluid. 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 History and ROS reviewed as above Vitals reviewed Gen: AAOx3, NAD, morbidly obese HEENT: Anicteric sclerae, EOMI CV: Irregularly irregular, normal rate, no mgr nl S1S2 Pulm: Bibasilar crackles, mild tachypnea, nasal cannula in place, no wheezes Abd: +BS soft mild distention NT ND no masses or hernias Ext: 2+ pitting edema lower legs bilaterally Skin: No rashes, warm/dry Neuro: Full strength throughout Laboratory values reviewed ECG reviewed Chest x-ray image reviewed 79-year-old male here with acute on chronic diastolic CHF, acute respiratory failure with hypoxia, and worsening psychiatric issues as noted above. -Admit for IV diuresis, follow electrolytes -Check echocardiogram, cardiology consultation -Follow daily weights, low-sodium diet, strict I's and O's fluid restriction Continue rate control for A. fib and Eliquis Blood pressures significantly elevated-missed medications this morning-we will give now and can give Nitropaste IV hydralazine as needed PG Care Time/CCT Total # of Minutes Spent Total Time Spent with Patient: Total time spent is greater than 50% in coordination of care (as documented) at patient's floor/unit and/or counseling patient: Coding Level of Care Code 77630 Initial Inpt Care Lvl 3 Diagnoses Diastolic CHF, acute on chronic I50.33 Hypoxia R09.02 Hypertension I10 Chronic atrial fibrillation I48.20 Schizoaffective disorder F25.9 Schizoaffective disorder type: unspecified Depression F32.9 GERD (gastroesophageal reflux disease) K21.9 Obesity E66.9 Obesity classification: unspecified obesity classification Obesity type: unspecified obesity type Serious obesity comorbidity presence: unspecified whether serious comorbidity present DVT prophylaxis Z29.9 (1) Schizoaffective disorder Schizoaffective disorder type: unspecified Qualified Code(s): F25.9 - Schizoaffective disorder, unspecified (2) Obesity Obesity classification: unspecified obesity classification Obesity type: unspecified obesity type Serious obesity comorbidity presence: unspecified whether serious comorbidity present Qualified Code(s): E66.9 - Obesity, unspecified
[2020-03-23] MEDS ORDERED: DILTIAZEM HCL 360 MG PO SCH (14:24)
[2020-03-23] MEDS ORDERED: ISOSORBIDE MONO EXTENDED REL 30 MG TABCR PO SCH (14:24)
[2020-03-23] MEDS: LOSARTAN POTASSIUM 50 MG TAB PO SCH (16:49)
[2020-03-23] MEDS: dilTIAZem HCL 180 MG CAPCR PO SCH (16:50)
[2020-03-23] MEDS ORDERED: ACETAMINOPHEN 325 MG TAB PO PRN (17:32)
[2020-03-23] MEDS ORDERED: ISOSORBIDE MONO EXTENDED REL 60 MG TABCR PO ONE (19:00)
[2020-03-23] MEDS: FUROSEMIDE 40 MG in SYRINGE 0 ML IV SCH (19:11)
[2020-03-23] MEDS ORDERED: Nursing to Pharmacy Communication SCH (19:15)
[2020-03-23] MEDS: APIXABAN 5 MG TABLET PO SCH (20:06)
[2020-03-23] MEDS: PANTOprazole 40 MG TAB PO SCH (20:06)
[2020-03-23] MEDS ORDERED: FUROSEMIDE 40 MG/4 ML VIAL IV SCH (21:00)
--- NOTE | 2020-03-23 22:37 | Electrocardiogram Report ---
Test Reason : Blood Pressure : / mmHG Vent. Rate : 074 BPM Atrial Rate : 082 BPM P-R Int : 000 ms QRS Dur : 084 ms QT Int : 418 ms P-R-T Axes : 000 006 050 degrees QTc Int : 463 ms Atrial fibrillation Abnormal ECG When compared with ECG of 08-JAN-2019 02:49, No significant change was found Confirmed by Aleksey Tuttle ([id number]) on 03/23/2020 10:37:01 PM Referred By: REFERRED SELF Confirmed By:Aleksey Tuttle
[2020-03-24 06:22] LABS: Hematocrit (blood only) 36.4 % (42-52); Hemoglobin 12.2 g/dL (14.0-18.0); Mean Corpuscular Hemoglobin 31.4 pg (25-34); Mean Corpuscular Hgb Conc 33.5 g/dL (32-36); Mean Corpuscular Volume 93.8 fL (80-100); Mean Platelet Volume 10.7 fL (7.4-10.4); Platelet Count 176 K/uL (130-400); RDW Coefficient of Variation 14.8 % (11.5-14.5); RDW Standard Deviation 50.4 fL (36.4-46.3); Red Blood Count 3.88 M/uL (4.7-6.1); White Blood Count 7.48 K/uL (4.8-10.8)
[2020-03-24 07:06] LABS: Albumin Level 3.2 gm/dl (3.4-5.0); BUN Creatinine Ratio 17.3 (10-20); Creatinine Clr Calc Pharmacy 87.8 ml/min; Est GFR (African American) 96.8; Est GFR (Non-African American) 83.5; Potassium 3.2 mmol/L (3.5-5.1)
[2020-03-24 07:23] LABS: Albumin Globulin Ratio 1.1 (0.9-2); Bilirubin,Total 1.2 mg/dl (0.2-1); Total Protein 6.2 gm/dl (6.4-8.2)
[2020-03-24] MEDS: CYANOCOBALAMIN 500 MCG TABLET (VITAMIN B-12) PO SCH (08:01)
[2020-03-24] MEDS: FUROSEMIDE 40 MG in SYRINGE 0 ML IV SCH ×2 (08:01→17:11)
[2020-03-24] MEDS: dilTIAZem HCL 180 MG CAPCR PO SCH (08:02)
[2020-03-24] MEDS: PANTOprazole 40 MG TAB PO SCH ×2 (08:02→20:30)
[2020-03-24] MEDS: LOSARTAN POTASSIUM 50 MG TAB PO SCH (08:02)
[2020-03-24] MEDS: APIXABAN 5 MG TABLET PO SCH ×2 (08:02→20:30)
[2020-03-24] MEDS: ISOSORBIDE MONO EXTENDED REL 30 MG TABCR PO SCH (08:03)
[2020-03-24] MEDS: POTASSIUM CHLORIDE CRTAB 20 MEQ TABCR PO SCH (08:03)
[2020-03-24] MEDS: QUEtiapine FUMARATE 200 MG TAB PO SCH ×3 (08:03→20:29)
[2020-03-24] MEDS: VENLAFAXINE HCL XR 75 MG CAPXR PO SCH (08:05)
[2020-03-24] MEDS ORDERED: VENLAFAXINE HCL XR 150 MG CAPXR PO SCH (09:00)
--- NOTE | 2020-03-24 09:32 | XCELERA ---
[id number]
[2020-03-24] MEDS ORDERED: POTASSIUM CHLORIDE CRTAB 20 MEQ TABCR PO ONE (12:24)
--- NOTE | 2020-03-24 13:34 | Psychiatric Consultation ---
Date of Consultation March 24, 2020 Impression / Recommendations Impression 79 yo male with longstanding schizoaffective disorder, recurrence of aud martell after missing several doses of medication. I suspect sleep issues are more related to cardiorespiratory status, apnea, etc than due to his primary psych condition and would avoid sedating agents at this time on top of the Seroquel. I would not change his psychiatric medications in this acute setting. Liaison can confirm outpatient appointments. Will follow his mental status as historically has intermittent SI, he is lonely where he lives and acute inpatient will not address that. Please notify service before discharging patient as chronic high risk patient. Risk Factors Assessment Do You Have Access To A Gun?: No Psych History Identifying Data 79 yo male known to me from an [facility] inpatient psychiatric hospitalization in Jan 2019. Hospitalized for CHF and diuresis. Chief Complaint "nothing works, I'm just so depressed over this CHF stuff". History of Present Illness Tends to have recurrence of martell when doesn't take medications for 4-5 days. Also feels more anxious/tremulous due to discontinuation syndrome from Effexor. Upon admission reporting aud martell, a man's voice saying it would hurt him. He denies this to me today. He denies visual martell. Typically complains of poor sleep, even with Seroquel, though also little structure to day at this time and clearly having SOB and orthopnea. He has little enjoyment in life as many of his friends are passing away due to medical issues and he's frustrated with his landlord. He would like his medications changes but "at the same time I'm not sure anything will help" Energy and concentration are poor, feels "sluggish". He feels passively suicidal a few times a week with thoughts to overdose but denies intent or plan. Anxiety is baseline. Past Psychiatric History Previous Psych History: hx of 50+ inpatient psychiatric hospitalization (multiple [facility]) Current Psychiatric Diagnosis: schizoaffective disorder Outpatient Services: [facility] psychiatrist, confirm name Do You Have Access To A Gun?: No History of Previous Suicide Attempt: Yes Describe Attempts in the Past: multiple ODs Past Medication Trials: "everything", Haldol, lithium, zyprexa Allergies Allergy/AdvReac Type Severity Reaction Status Date / Time amoxicillin Allergy Mild RASH Verified 01/08/19 04:05 clindamycin Allergy Mild RASH Verified 01/08/19 04:05 latex Allergy Mild RASH Verified 01/08/19 04:05 aspirin Allergy Unknown Unknown Verified 01/08/19 04:05 Penicillins Allergy Unknown RASH FROM Verified 01/08/19 04:05 AMOXICILLIN, BUT PCN IS OK haloperidol AdvReac Intermediate PT STATES Verified 01/08/19 04:05 HE LOCKS UP metronidazole AdvReac Mild ABDOM PAIN Verified 01/08/19 04:05 &CRAMPS olanzapine AdvReac Mild PANCREATITI Verified 01/08/19 04:05 S lithium AdvReac Unknown SENSITIVE Verified 01/08/19 04:05 TO IT BECOMES TOXIC Home Medications Medication Instructions Recorded Confirmed Type quetiapine 400 mg PO DAILY 01/08/19 03/23/20 History apixaban [Eliquis] 5 mg PO BID 03/23/20 03/23/20 History cyanocobalamin (vitamin B-12) 1,000 mcg PO DAILY 03/23/20 03/23/20 History diltiazem HCl 360 mg PO DAILY 03/23/20 03/23/20 History furosemide 40 mg PO DAILY 03/23/20 03/23/20 History isosorbide mononitrate 90 mg PO DAILY 03/23/20 03/23/20 History losartan 50 mg PO DAILY 03/23/20 03/23/20 History omeprazole 20 mg PO BID 03/23/20 03/23/20 History venlafaxine 225 mg PO QAM 03/23/20 03/23/20 History Family History mother p schiz Substance Abuse History past ETOH rehab, denies in past 1.5 years; no drugs Personal History 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) Marital Status: Single Beliefs That Will Affect Care: None Patient History Medical History CHF (congestive heart failure) Chronic atrial fibrillation Depression GERD (gastroesophageal reflux disease) Hypertension Loose stools Obesity Schizoaffective disorder Schizophrenia Suicidal ideation Surgical History No pertinent past surgical history Family History Father Cancer colon Other Family history non-contributory Social History Smoking Status: Former smoker Tobacco Type: Cigarettes Age Quit Using Tobacco: 49; packs per day: 1; Years Smoked: 30; Smoking End Date: 1989; Second Hand Exposure: No; Do You Dip or Chew Tobacco: No; Tobacco Cessation Education Requested by Patient: No Hx Alcohol Use: Yes Alcohol type: beer Hx Substance Use: No Preferred Language: Albanian Communication Ability: Effective 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 Required: No Beliefs That Will Affect Care: None marital status: Single Current Living Situation: Alone Other Information That Helps Us Care for You: No Feels Safe at Home: Yes Safety Concerns: Feels Safe At This Time Assistive Devices: None Physical Exam Psychiatric: Orientation: alert Apperance: + disheveled Eye Contact: + poor eye contact Motor Behavior: + tremor Speech: normal rate/rhythm/volume of speech Affect: + depressed affect Mood: + anxious mood Thought Process: + concrete thought process Thought Content: no delusions Suicidal Thoughts: denies suicidal thoughts (but overwhelmed with health issues) Homicidal Thoughts: denies homicidal thoughts Hallucinations: no auditory hallucinations and no visual hallucinations Cognition: recent memory grossly intact Insight: + limited insight Judgement: + limited judgement Vital Signs (Past 24 Hours): Last Vital Signs Temp 37.1 C 03/24/20 11:00 Pulse 64 03/24/20 11:00 Resp 20 03/24/20 11:00 BP 121/52 L 03/24/20 11:00 Pulse Ox 93 03/24/20 11:01 Review of Systems Other (SOB) Results & Data (PSY) Medications Administered Apixaban (Apixaban 5 Mg Tablet) 5 mg PO BID LANDON Stop: 04/22/20 20:59 Last Admin: 03/24/20 08:02 Dose: 5 mg Documented by: [id number] Admin: 03/23/20 20:06 Dose: 5 mg Documented by: [id number] Cyanocobalamin (Cyanocobalamin 500 Mcg Tablet (Vitamin B-12)) 1,000 mcg PO DAILY LANDON Stop: 04/23/20 08:59 Last Admin: 03/24/20 08:01 Dose: 1,000 mcg Documented by: [id number] Diltiazem HCl (Diltiazem Hcl 180 Mg Capcr) 360 mg PO QAM LANDON Stop: 04/22/20 14:29 Last Admin: 03/24/20 08:02 Dose: 360 mg Documented by: [id number] Admin: 03/23/20 16:50 Dose: 360 mg Documented by: [id number] Furosemide 40 mg/ Syringe 4 mls @ 4 mls/min IV [id number] LANDON Stop: 04/22/20 20:59 Last Admin: 03/24/20 08:01 Dose: 4 mls/min Documented by: [id number] Admin: 03/23/20 19:11 Dose: 4 mls/min Documented by: [id number] Isosorbide Mononitrate (Isosorbide [place] Extended Rel 30 Mg Tabcr) 90 mg PO DAILY LANDON Stop: 04/23/20 08:59 Last Admin: 03/24/20 08:03 Dose: 90 mg Documented by: [id number] Losartan Potassium (Losartan Potassium 50 Mg Tab) 50 mg PO DAILY LANDON Stop: 04/22/20 14:23 Last Admin: 03/24/20 08:02 Dose: 50 mg Documented by: [id number] Admin: 03/23/20 16:49 Dose: 50 mg Documented by: [id number] Pantoprazole Sodium (Pantoprazole 40 Mg Tab) 40 mg PO BID LANDON Stop: 04/22/20 20:59 Last Admin: 03/24/20 08:02 Dose: 40 mg Documented by: [id number] Admin: 03/23/20 20:06 Dose: 40 mg Documented by: [id number] Potassium Chloride (Potassium Chloride Crtab 20 Meq Tabcr) 20 meq PO QAM LANDON Stop: 04/23/20 08:59 Last Admin: 03/24/20 08:03 Dose: 20 meq Documented by: [id number] Quetiapine Fumarate (Quetiapine Fumarate 200 Mg Tab) 400 mg PO DAILY LANDON Stop: 04/23/20 08:59 Last Admin: 03/24/20 09:18 Dose: Not Given Documented by: [id number] Venlafaxine HCl (Venlafaxine Hcl Xr 75 Mg Capxr) 225 mg PO DAILY LANDON Stop: 04/23/20 08:59 Last Admin: 03/24/20 08:05 Dose: 225 mg Documented by: [id number] Coding Level of Care Code 96503 U Intl Hosp Care Lvl 2
--- NOTE | 2020-03-24 14:01 | Hospitalist Progress Note ---
Date of Service March 24, 2020 Assessment & Plan (1) Acute on chronic diastolic (congestive) heart failure: This is an 79 F with PMHx of chronic diastolic CHF, HTN, afib on Eliquis, GERD, schizoaffective disorder, and depression who presented with acute shortness of breath. Likely CHF exacerbation, currently diuresing. Oxygenating well on nasal cannula. Psychiatric concerns but has been better controlled since restarting his home meds. Cardiology and psych consulted. Diastolic CHF, acute on chronic: - Serial troponins negative - BNP borderline elevated - CXR with pulmonary edema - Echo: Normal LV size & fxn (EF 65-70%). Moderate concentric LVH. Severe left atrial dilation. Mild pulmonary HTN (RVSP 46mmHg). - Cardiology consult: - He appears hypervolemic. Continue Lasix 40 mg IV twice daily. Goal is to diurese at least 1 liter negative fluid balance this 24 hours. If not achieving that goal, please increase Lasix to 80 mg IV twice daily. Low-sodium diet, less than 2000 mg daily. Daily weights. Strict I&Os. - Continue diuresis with lasix 40 mg IV BID - KCl 20mEq PO daily while diuresing - Strict I's/O's - Low-sodium diet with fluid restriction - PT/OT consulted - CMP in AM Acute hypoxic respiratory failure: - SaO2 of 84% on room air on arrival, tachypnea, diaphoresis - Sec to CHF exacerbation - Improved on 2 L nasal cannula with IV Lasix - Continue to diurese as above Hypertension: - Significantly hypertensive on admission, SBP low 200s at bedside over 100 - Had missed medications but normotensive since continuing home meds - Continue Diltiazem, Imdur, Losartan - consider outpatient sleep study Chronic atrial fibrillation: - Initial EKG w/ afib, rate controlled - Echo as above -Continue Eliquis 5 mg twice daily, rate controlled with diltiazem - Cardiology consult: - Asymptomatic. Heart rate well controlled. Continue diltiazem, his chronic rate-controlling medication. Continue anticoagulation for stroke risk reduction. Schizoaffective disorder: - Reported threatening auditory hallucinations on admission - Denied SI/HI - Worsening anhedonia, lack of family and friends, appears to have lack of support system in place currently - Resumed home Effexor and Seroquel - Psych consult: - suspect sleep issues are more related to cardiorespiratory status, apnea, etc than due to his primary psych condition and would avoid sedating agents at this time on top of the Seroquel. I would not change his psychiatric medications in this acute setting. - will follow his mental status as historically has intermittent SI, he is lonely where he lives and acute inpatient will not address that. Please notify service before discharging patient as chronic high risk patient. Depression: -As above GERD (gastroesophageal reflux disease): -Continue omeprazole 20 mg twice daily FENGI: Low sodium 2g, Fluid restriction 1500 mL DVT ppx: Eliquis Dispo: Med Tele CODE: Full (2) Atrial fibrillation, permanent: (3) Hypoxia: (4) Hypertension: (5) Schizoaffective disorder: (6) Depression: (7) GERD (gastroesophageal reflux disease): Admission and Anticipated Discharge Date Admission Date: March 23, 2020 Supervising Physician Co-Signing Physician Notes Resident Physician Supervision Note: I independently interviewed and examined the patient and verified the torres history and physical, reviewed labs and image studies, discussed the case with the resident Dr. Arias and agree with the findings and care plan. Subjective Patient seen at bedside this AM. Laying in bed comfortably, reports that he feels sleepy/tired as he was unable to sleep last night. He says his breathing feels better, though still not great. Denies CP, palpitations. Review of Systems Review of Systems: All systems reviewed & are unremarkable except as noted in Subjective Physical Exam Constitutional: WD/WN, vitals as above no acute distress Sleepy Cardiovascular: Rate/Rhythm: regular rate Heart Sounds: normal S1, normal S2 and + murmur (systolic); no gallop and no cardiac rub Vessels: no JVD Extremities: + edema (1+ BLE) Gastrointestinal (Abdomen): normal bowel sounds, soft, nontender, no hepatosplenomegaly Musculoskeletal: no cyanosis or clubbing, extremities motor strength 5/5 Skin: no rashes, warm and dry Psychiatric: A+Ox3, euthymic affect Results & Data Results & Data ([facility]) Vital Signs (Past 12 Hours) Vital Signs Temp Pulse Resp BP BP Pulse Ox Pulse Ox 03/24/20 11:01 93 03/24/20 11:00 37.1 C 64 20 121/52 L 95 03/24/20 10:48 93 03/24/20 07:43 36.8 C 63 20 131/71 94 03/24/20 04:00 36.9 C 56 L 18 147/53 H 93 Pulse Ox Pulse Ox 03/24/20 11:01 95 96 03/24/20 11:00 03/24/20 10:48 03/24/20 07:43 03/24/20 04:00 Resident Activity Tracking Resident Involvement: Resident Care Provided Care Provided: Adult [facility] (1) Schizoaffective disorder Schizoaffective disorder type: unspecified Qualified Code(s): F25.9 - Schizoaffective disorder, unspecified
--- NOTE | 2020-03-24 14:48 | Cardiology Consultation ---
Date of Consultation March 24, 2020 Assessment & Plan (1) Acute on chronic diastolic (congestive) heart failure: (2) Atrial fibrillation, permanent: (3) Pulmonary hypertension: (4) Hypertension: ASSESSMENT/PLAN: 1. Acute on chronic diastolic CHF: He appears hypervolemic. Continue Lasix 40 mg IV twice daily. Goal is to diurese at least 1 liter negative fluid balance this 24 hours. If not achieving that goal, please increase Lasix to 80 mg IV twice daily. Low-sodium diet, less than 2000 mg daily. Daily weights. Strict I&Os. 2. Permanent atrial fibrillation: Asymptomatic. Heart rate well controlled. Continue diltiazem, his chronic rate-controlling medication. Continue anticoagulation for stroke risk reduction. 3. Hypertension: Blood pressure was initially severely elevated but now normotensive. Continue current regimen. 4. Pulmonary hypertension: Noted on echo. Likely due to left heart failure. Continue diuresis as above. 5. Disposition: Cardiology will continue to follow. Plan of care discussed with Dr. Wolfe of the primary hospitalist service. Thank you for allowing me to participate in the care of your patient. Please call for any other questions or concerns. Sincerely, Coleman Tuttle M.D. History of Present Illness Reason for Consultation: Afib with RVR, CHF Requesting Physician: Andrzej Attending Physician: Neda Wolfe MD History of Present Illness Mr. Nguyen is a pleasant 79-year-old gentleman with history significant for diastolic CHF, permanent atrial fibrillation, hypertension, schizoaffective disorder, depression, and acid reflux. He is followed in the [place] area as he [place] outside of [place]. 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 He was admitted on 03/23/2020 with concerns for CHF. He states that on 03/22/2020, he became acutely short of breath overnight. He developed shortness of breath, orthopnea, but denied chest pain. He admits that for the few days prior to that, he had been noting worsening edema in his lower extremities. He states that he weighs himself at home but has not been weighing himself the last several days. He denies consuming large amounts of sodium but also admits that he has been eating at restaurants, especially with this recent trip to the [facility]. He acknowledges that he has a history of CHF and has been treated for this in the past, including hospitalizations. He reports that he has taken all of his medications without missing any doses of his diuretic. At home he takes Lasix 40 mg daily. He also takes Eliquis for stroke risk reduction in regards to atrial fibrillation. While here, he has been given diuretic in the form of 40 mg of Lasix IV b.i.d. and was -1.79 L yesterday. Despite this, he does not feel significantly improved and remains short of breath. He continues to deny chest pain, syncope, near-syncope, palpitations, or bleeding such as melena, hematochezia, or hematuria. He has been evaluated by Psychiatry. Review of systems: As above. Review of systems otherwise negative/unremarkable. Family history: No known premature CAD. Social history: He lives alone in an apartment near [place]. He quit smoking greater than 30 years ago. No alcohol. Never . No children. Unaccompanied. Allergies Allergy/AdvReac Type Severity Reaction Status Date / Time amoxicillin Allergy Mild RASH Verified 01/08/19 04:05 clindamycin Allergy Mild RASH Verified 01/08/19 04:05 latex Allergy Mild RASH Verified 01/08/19 04:05 aspirin Allergy Unknown Unknown Verified 01/08/19 04:05 Penicillins Allergy Unknown RASH FROM Verified 01/08/19 04:05 AMOXICILLIN, BUT PCN IS OK haloperidol AdvReac Intermediate PT STATES Verified 01/08/19 04:05 HE LOCKS UP metronidazole AdvReac Mild ABDOM PAIN Verified 01/08/19 04:05 &CRAMPS olanzapine AdvReac Mild PANCREATITI Verified 01/08/19 04:05 S lithium AdvReac Unknown SENSITIVE Verified 01/08/19 04:05 TO IT BECOMES TOXIC Home Medications Medication Instructions Recorded Confirmed Type quetiapine 400 mg PO DAILY 01/08/19 03/23/20 History apixaban [Eliquis] 5 mg PO BID 03/23/20 03/23/20 History cyanocobalamin (vitamin B-12) 1,000 mcg PO DAILY 03/23/20 03/23/20 History diltiazem HCl 360 mg PO DAILY 03/23/20 03/23/20 History furosemide 40 mg PO DAILY 03/23/20 03/23/20 History isosorbide mononitrate 90 mg PO DAILY 03/23/20 03/23/20 History losartan 50 mg PO DAILY 03/23/20 03/23/20 History omeprazole 20 mg PO BID 03/23/20 03/23/20 History venlafaxine 225 mg PO QAM 03/23/20 03/23/20 History Patient History Medical History CHF (congestive heart failure) Chronic atrial fibrillation Depression GERD (gastroesophageal reflux disease) Hypertension Loose stools Obesity Schizoaffective disorder Schizophrenia Suicidal ideation Surgical History No pertinent past surgical history Family History Father Cancer colon Other Family history non-contributory Social History Smoking Status: Former smoker Tobacco Type: Cigarettes Age Quit Using Tobacco: 49; packs per day: 1; Years Smoked: 30; Smoking End Date: 1989; Second Hand Exposure: No; Do You Dip or Chew Tobacco: No; Tobacco Cessation Education Requested by Patient: No Hx Alcohol Use: Yes Alcohol type: beer Hx Substance Use: No Preferred Language: [place] Citizen Communication Ability: Effective Spinner Hydraulic Required: No Beliefs That Will Affect Care: None marital status: Single Current Living Situation: Alone Other Information That Helps Us Care for You: No Feels Safe at Home: Yes Safety Concerns: Feels Safe At This Time Assistive Devices: None Physical Exam Physical Exam: Gen.: No acute distress. Alert. HEENT: Anicteric sclera. Neck: Thick neck. No obvious JVD. No bruits. Normal carotid upstrokes bilaterally. Cardiac: PMI was nondisplaced. No ventricular heave. Irregularly irregular. Normal rate. Normal S1-S2. 2/6 early peaking systolic ejection murmur. No rubs or gallops. Pulmonary: Clear to auscultation bilaterally without wheezes, rales, or rhonchi. Abdomen: Soft, nontender, nondistended, with normoactive bowel sounds. No bruits noted. Extremities: 2+ radial pulses bilaterally. 2+ posterior tibialis pulses bilaterally. 1+ bilateral lower extremity edema. No cyanosis. Psychiatric: Affect appears appropriate. Results & Data ([facility]) Vital Signs (Past 12 Hours) Vital Signs Temp Pulse Resp BP BP Pulse Ox Pulse Ox 03/24/20 11:01 93 03/24/20 11:00 37.1 C 64 20 121/52 L 95 03/24/20 10:48 93 03/24/20 07:43 36.8 C 63 20 131/71 94 03/24/20 04:00 36.9 C 56 L 18 147/53 H 93 Pulse Ox Pulse Ox 03/24/20 11:01 95 96 03/24/20 11:00 03/24/20 10:48 03/24/20 07:43 03/24/20 04:00 Intake & Output 03/22/20 03/23/20 03/24/20 03/25/20 06:59 06:59 06:59 06:59 Intake Total 660 / 660 560 / 560 Output Total 2450 / 2450 150 / 150 Balance -1790 / -1790 410 / 410 Weight 234 lb 12.677 oz Laboratory Results Laboratory Results - last 24 hr 03/23/20 03/24/20 03/24/20 18:26 02:48 06:01 WBC 7.48 RBC 3.88 L Hgb 12.2 L Hct 36.4 L MCV 93.8 MCH 31.4 MCHC 33.5 RDW Std Deviation 50.4 H RDW Coeff of Hayden 14.8 H Plt Count 176 MPV 10.7 H Sodium Potassium Chloride Carbon Dioxide Anion Gap BUN Creatinine Est Cr Clr Drug Dosing Est GFR ( Amer) Est GFR (Non-Af Amer) BUN/Creatinine Ratio Glucose Calcium Total Bilirubin AST ALT Alkaline Phosphatase Troponin I < 0.015 < 0.015 Total Protein Albumin Globulin Albumin/Globulin Ratio Triglycerides Cholesterol LDL Cholesterol, Calc VLDL Cholesterol, Calc HDL Cholesterol Cholesterol/HDL Ratio 03/24/20 06:01 WBC RBC Hgb Hct MCV MCH MCHC RDW Std Deviation RDW Coeff of Hayden Plt Count MPV Sodium 141 Potassium 3.2 L Chloride 105 Carbon Dioxide 31 Anion Gap 5.0 BUN 14 Creatinine 0.82 Est Cr Clr Drug Dosing 87.8 Est GFR ( Amer) 96.8 Est GFR (Non-Af Amer) 83.5 BUN/Creatinine Ratio 17.3 Glucose 124 H Calcium 8.0 L Total Bilirubin 1.2 H D AST 15 ALT 29 Alkaline Phosphatase 73 Troponin I Total Protein 6.2 L Albumin 3.2 L Globulin 3.0 Albumin/Globulin Ratio 1.1 Triglycerides 94 Cholesterol 148 LDL Cholesterol, Calc 85 VLDL Cholesterol, Calc 19 HDL Cholesterol 44 Cholesterol/HDL Ratio 3 Diagnostic Findings On 03/24/2020, chart reviewed. Echo reviewed. Echo 03/24/2020: Normal LV size, wall motion, systolic function. EF 65-70%. Moderate LVH. Severe left atrial dilation. Sclerotic aortic valve. RVSP 46. ECG 03/23/2020 personally reviewed: AFib 74 beats per minute. Telemetry personally reviewed: Atrial fibrillation with normal heart rate. Chest x-ray 03/23/2020 personally reviewed: Interstitial/vascular thickening noted. Medications Administered Current Inpatient Medications Acetaminophen (Acetaminophen 325 Mg Tab) 650 mg PO Q4H PRN PRN Reason: Moderate Pain Stop: 04/22/20 17:31 Apixaban (Apixaban 5 Mg Tablet) 5 mg PO BID [facility] Stop: 04/22/20 20:59 Last Admin: 03/24/20 08:02 Dose: 5 mg Documented by: Cyanocobalamin (Cyanocobalamin 500 Mcg Tablet (Vitamin B-12)) 1,000 mcg PO DAILY [facility] Stop: 04/23/20 08:59 Last Admin: 03/24/20 08:01 Dose: 1,000 mcg Documented by: Diltiazem HCl (Diltiazem Hcl 180 Mg Capcr) 360 mg PO QAM [facility] Stop: 04/22/20 14:29 Last Admin: 03/24/20 08:02 Dose: 360 mg Documented by: Furosemide 40 mg/ Syringe 4 mls @ 4 mls/min IV [id number] LANDON Stop: 04/22/20 20:59 Last Admin: 03/24/20 08:01 Dose: 4 mls/min Documented by: Isosorbide Mononitrate (Isosorbide [place] Extended Rel 30 Mg Tabcr) 90 mg PO DAILY [facility] Stop: 04/23/20 08:59 Last Admin: 03/24/20 08:03 Dose: 90 mg Documented by: Losartan Potassium (Losartan Potassium 50 Mg Tab) 50 mg PO DAILY [facility] Stop: 04/22/20 14:23 Last Admin: 03/24/20 08:02 Dose: 50 mg Documented by: Ondansetron HCl (Ondansetron Inj 2 Mg/Ml 2 Ml Vial) 4 mg IV Q4H PRN PRN Reason: Nausea And Vomiting Stop: 04/22/20 17:31 Pantoprazole Sodium (Pantoprazole 40 Mg Tab) 40 mg PO BID [facility] Stop: 04/22/20 20:59 Last Admin: 03/24/20 08:02 Dose: 40 mg Documented by: Potassium Chloride (Potassium Chloride Crtab 20 Meq Tabcr) 20 meq PO QAM [facility] Stop: 04/23/20 08:59 Last Admin: 03/24/20 08:03 Dose: 20 meq Documented by: Quetiapine Fumarate (Quetiapine Fumarate 200 Mg Tab) 400 mg PO DAILY [facility] Stop: 04/23/20 08:59 Last Admin: 03/24/20 09:18 Dose: Not Given Documented by: Venlafaxine HCl (Venlafaxine Hcl Xr 75 Mg Capxr) 225 mg PO DAILY [facility] Stop: 04/23/20 08:59 Last Admin: 03/24/20 08:05 Dose: 225 mg Documented by: PG Care Time/CCT Total # of Minutes Spent Total Time Spent with Patient: Total time spent is greater than 50% in coordination of care (as documented) at patient's floor/unit and/or counseling patient: Coding Level of Care Code 04174 Initial Inpt Care Lvl 3 Diagnoses Acute on chronic diastolic (congestive) heart failure I50.33 Atrial fibrillation, permanent I48.21 Pulmonary hypertension I27.20 Hypertension I10
[2020-03-24] MEDS ORDERED: Nursing to Pharmacy Communication SCH (15:15)
[2020-03-24] MEDS: ONDANSETRON INJ 2 MG/ML 2 ML VIAL IV PRN (17:11)
[2020-03-25 06:58] LABS: Hematocrit (blood only) 35.5 % (42-52); Hemoglobin 11.6 g/dL (14.0-18.0); Mean Corpuscular Hemoglobin 31.2 pg (25-34); Mean Corpuscular Hgb Conc 32.7 g/dL (32-36); Mean Corpuscular Volume 95.4 fL (80-100); Platelet Count 134 K/uL (130-400); RDW Coefficient of Variation 15.1 % (11.5-14.5); RDW Standard Deviation 52.1 fL (36.4-46.3); Red Blood Count 3.72 M/uL (4.7-6.1); White Blood Count 4.85 K/uL (4.8-10.8)
[2020-03-25 07:27] LABS: Est GFR (Non-African American) 71.6; Potassium 3.4 mmol/L (3.5-5.1)
[2020-03-25 07:28] LABS: Albumin Level 2.9 gm/dl (3.4-5.0); BUN Creatinine Ratio 19.4 (10-20); Calcium 8.6 mg/dl (8.5-10.1)
[2020-03-25 07:30] LABS: Bilirubin,Total 0.8 mg/dl (0.2-1); Globulin 2.9 gm/dl (2.5-4.0); Total Protein 5.9 gm/dl (6.4-8.2)
--- NOTE | 2020-03-25 08:05 | Hospitalist Progress Note ---
Date of Service March 25, 2020 Assessment & Plan (1) Acute on chronic diastolic (congestive) heart failure: Jeronimo Nguyen is an 79 F with PMHx of chronic diastolic CHF, HTN, afib on Eliquis, GERD, schizoaffective disorder, and depression who presented with acute shortness of breath. Likely CHF exacerbation, currently diuresing. Oxygenating well on nasal cannula. Psychiatric concerns but has been better controlled since restarting his home meds. Cardiology and psych consulted. Diastolic CHF, acute on chronic: - Serial troponins negative - BNP borderline elevated - CXR with pulmonary edema - Echo: Normal LV size & fxn (EF 65-70%). Moderate concentric LVH. Severe left atrial dilation. Mild pulmonary HTN (RVSP 46mmHg). - Cardiology consult: - He appears hypervolemic. Continue Lasix 40 mg IV twice daily. Goal is to diurese at least 1 liter negative fluid balance this 24 hours. If not achieving that goal, please increase Lasix to 80 mg IV twice daily. Low-sodium diet, less than 2000 mg daily. Daily weights. Strict I&Os. - 03/25/20: per cardiology, inadequate 24 hr diuresis. increased to 80 mg IV BID - KCl 20mEq PO daily while diuresing. 03/25/20 increased to 40 meq daily - 80 meq additional KCl provided today 03/25/20 because of the increased lasix - Low-sodium diet with fluid restriction - PT/OT consulted - CMP in AM Acute hypoxic respiratory failure: - SaO2 of 84% on room air on arrival, tachypnea, diaphoresis - Sec to CHF exacerbation - Improved on 2 L nasal cannula with IV Lasix - Continue to diurese as above Hypertension: - Significantly hypertensive on admission, SBP low 200s at bedside over 100 - Had missed medications but normotensive since continuing home meds - Continue Diltiazem, Imdur, Losartan - consider outpatient sleep study Chronic atrial fibrillation: - Initial EKG w/ afib, rate controlled - Echo as above -Continue Eliquis 5 mg twice daily, rate controlled with diltiazem - Cardiology consult: - Asymptomatic. Heart rate well controlled. Continue diltiazem, his chronic rate-controlling medication. Continue anticoagulation for stroke risk reduction. Schizoaffective disorder: - Reported threatening auditory hallucinations on admission - Denied SI/HI - Worsening anhedonia, lack of family and friends, appears to have lack of support system in place currently - Resumed home Effexor and Seroquel - Psych consult: - suspect sleep issues are more related to cardiorespiratory status, apnea, etc than due to his primary psych condition and would avoid sedating agents at this time on top of the Seroquel. I would not change his psychiatric medications in this acute setting. - will follow his mental status as historically has intermittent SI, he is lonely where he lives and acute inpatient will not address that. Please notify service before discharging patient as chronic high risk patient. Depression: -As above GERD (gastroesophageal reflux disease): -Continue omeprazole 20 mg twice daily FENGI: Low sodium 2g, Fluid restriction 1500 mL. not on mIVF DVT ppx: Eliquis Dispo: Med Tele CODE: Full (2) Atrial fibrillation, permanent: (3) Hypoxia: (4) Hypertension: (5) Schizoaffective disorder: (6) Depression: (7) GERD (gastroesophageal reflux disease): Admission and Anticipated Discharge Date Admission Date: March 23, 2020 Supervising Physician Co-Signing Physician Notes I personally examined the patient and verified all torres points of history and exam, discussed case, and agree with decision making with Dr Rowell breathing still labored but better than when he came in. cardiology input ap preciated vitals noted nad heent nc at mmm breathing unlabored no accessory muscles good effort diminished bibasilar skin no rashes no pallor or icterus neuro no focal deficits acute on chronic diastolic chf - ongoing diuresis. improving. otherwise as above Subjective Patient feels a little tired this AM. breathing a little labored, but a little better than yesterday. no f/c, cp, abd, urinary. headache, dizziness, n/v. eating breakfast. Not on home o2. on 1.5L NC this AM. Had BM yesterday. + voices. states they tell him to harm himself, but he does not listen to them. denies si/hi. no visual hallucinations. Review of Systems Review of Systems: Constitutional: Denies fever, chills Cardiovascular: Denies chest pain Respiratory: Denies shortness of breath Gastrointestinal: Denies abdominal pain, nausea, vomiting Neurological: Denies headache, dizziness Physical Exam Physical Exam: General: Grossly A&O. NAD. Cooperative. HEENT: Atraumatic, normocephalic. EOMI Pulm: CTAB. -wheezes, -rales, -rhonchi. slightly shallow breaths. Cardiac: RRR, -mrg. trace le edema. no jvd visible at 45 degree bed angle Abdominal: soft. moderately distended, dull to percussion mild ttp periumbilical Psych: Denies SI/HI. + auditory hallucinations Results & Data Results & Data ([facility]) Vital Signs (Past 12 Hours) Vital Signs Temp Pulse Pulse Resp BP BP Pulse Ox 03/25/20 07:13 62 03/25/20 04:00 36.6 C 61 18 119/69 92 03/24/20 23:00 36.6 C 63 18 129/65 96 Resident Activity Tracking Resident Involvement: Resident Care Provided Care Provided: Adult Hospital Medicine (1) Schizoaffective disorder Schizoaffective disorder type: unspecified Qualified Code(s): F25.9 - Schizoaffective disorder, unspecified
[2020-03-25] MEDS: APIXABAN 5 MG TABLET PO SCH ×2 (08:33→20:18)
[2020-03-25] MEDS: FUROSEMIDE 40 MG in SYRINGE 0 ML IV SCH (08:33)
[2020-03-25] MEDS: VENLAFAXINE HCL XR 75 MG CAPXR PO SCH (08:34)
[2020-03-25] MEDS: dilTIAZem HCL 180 MG CAPCR PO SCH (08:34)
[2020-03-25] MEDS: ISOSORBIDE MONO EXTENDED REL 30 MG TABCR PO SCH (08:34)
[2020-03-25] MEDS: LOSARTAN POTASSIUM 50 MG TAB PO SCH (08:35)
[2020-03-25] MEDS: CYANOCOBALAMIN 500 MCG TABLET (VITAMIN B-12) PO SCH (08:35)
[2020-03-25] MEDS: PANTOprazole 40 MG TAB PO SCH ×2 (08:35→20:18)
[2020-03-25] MEDS: POTASSIUM CHLORIDE CRTAB 20 MEQ TABCR PO SCH (08:36)
--- NOTE | 2020-03-25 11:08 | Cardiology Progress Note ---
Date of Service March 25, 2020 Assessment & Plan (1) Acute on chronic diastolic (congestive) heart failure: (2) Atrial fibrillation, permanent: (3) Pulmonary hypertension: (4) Hypertension: ASSESSMENT/PLAN: 1. Acute on chronic diastolic CHF: Overall appears as though he is improving. His fluid balance is not impressive for yesterday and he reports less urine output. Increase Lasix to 80 mg IV twice daily. His weight is completely unreliable that he gained roughly 30 lb since yesterday. Goal is to diurese at least 1 liter negative fluid balance this 24 hours. Low-sodium diet, less than 2000 mg daily. Daily weights. Strict I&Os. 2. Permanent atrial fibrillation: Asymptomatic. His heart rate remains well controlled min reviewing telemetry. Continue diltiazem, his chronic rate- controlling medication. Continue anticoagulation for stroke risk reduction. 3. Hypertension: Blood pressure has improved and is mostly normotensive. Continue current regimen with adjustment of diuretic as above. 4. Pulmonary hypertension: Noted on echo. Likely due to left heart failure. Continue diuresis as above. 5. Disposition: Cardiology will continue to follow. He should have close follow-up with his local physicians on discharge ([facility]). He has declined physical therapy. Continue current plan as above. Admission and Anticipated Discharge Date Admission Date: March 23, 2020 Subjective His breathing has improved but still short of breath. He denies chest pain, palpitations, syncope, near-syncope, edema, or bleeding. He admits that he is a bit more tired today. Review of systems: As above. Physical Exam Physical Exam: Gen.: No acute distress. Alert. HEENT: Anicteric sclera. Neck: Thick neck. No obvious JVD. Cardiac: PMI was nondisplaced. No ventricular heave. Irregularly irregular with normal rate. Normal S1-S2. 2/6 early peaking systolic ejection murmur. No rubs or gallops. Pulmonary: Clear to auscultation bilaterally without wheezes, rales, or rhonchi. Abdomen: Soft, nontender, nondistended, with normoactive bowel sounds. No bruits noted. Extremities: 2+ radial pulses bilaterally. Trace bilateral lower extremity edema. No cyanosis. Psychiatric: Affect appears appropriate. Results & Data ([facility]) Vital Signs (Past 12 Hours) Vital Signs Temp Pulse Pulse Resp BP BP Pulse Ox 03/25/20 08:12 36.4 C L 108 H 16 150/78 H 94 03/25/20 07:13 62 03/25/20 04:00 36.6 C 61 18 119/69 92 Intake & Output 03/23/20 03/24/20 03/25/20 03/26/20 06:59 06:59 06:59 06:59 Intake Total 660 / 660 800 / 800 Output Total 2450 / 2450 550 / 550 Balance -1790 / -1790 250 / 250 Weight 234 lb 12.677 oz 263 lb 0.183 oz Laboratory Results Laboratory Results - last 24 hr 03/25/20 03/25/20 06:23 06:24 WBC 4.85 RBC 3.72 L Hgb 11.6 L Hct 35.5 L MCV 95.4 MCH 31.2 MCHC 32.7 RDW Std Deviation 52.1 H RDW Coeff of Hayden 15.1 H Plt Count 134 MPV 11.0 H Sodium 145 Potassium 3.4 L Chloride 109 H Carbon Dioxide 30 Anion Gap 7.0 BUN 19 H Creatinine 0.99 Est Cr Clr Drug Dosing 77.0 Est GFR ( Amer) 83.0 Est GFR (Non-Af Amer) 71.6 BUN/Creatinine Ratio 19.4 Glucose 114 H Calcium 8.6 Total Bilirubin 0.8 AST 11 L ALT 25 Alkaline Phosphatase 64 Total Protein 5.9 L Albumin 2.9 L Globulin 2.9 Albumin/Globulin Ratio 1.0 Diagnostic Findings Telemetry personally reviewed: Atrial fibrillation with adequate rate control. Chart reviewed. Medications Administered Current Inpatient Medications Acetaminophen (Acetaminophen 325 Mg Tab) 650 mg PO Q4H PRN PRN Reason: Moderate Pain Stop: 04/22/20 17:31 Apixaban (Apixaban 5 Mg Tablet) 5 mg PO BID [facility] Stop: 04/22/20 20:59 Last Admin: 03/25/20 08:33 Dose: 5 mg Documented by: Cyanocobalamin (Cyanocobalamin 500 Mcg Tablet (Vitamin B-12)) 1,000 mcg PO DAILY [facility] Stop: 04/23/20 08:59 Last Admin: 03/25/20 08:35 Dose: 1,000 mcg Documented by: Diltiazem HCl (Diltiazem Hcl 180 Mg Capcr) 360 mg PO QAM [facility] Stop: 04/22/20 14:29 Last Admin: 03/25/20 08:34 Dose: 360 mg Documented by: Furosemide 40 mg/ Syringe 4 mls @ 4 mls/min IV BID17 [facility] Stop: 04/22/20 20:59 Last Admin: 03/25/20 08:33 Dose: 4 mls/min Documented by: Isosorbide Mononitrate (Isosorbide [place] Extended Rel 30 Mg Tabcr) 90 mg PO DAILY [facility] Stop: 04/23/20 08:59 Last Admin: 03/25/20 08:34 Dose: 90 mg Documented by: Losartan Potassium (Losartan Potassium 50 Mg Tab) 50 mg PO DAILY [facility] Stop: 04/22/20 14:23 Last Admin: 03/25/20 08:35 Dose: 50 mg Documented by: Ondansetron HCl (Ondansetron Inj 2 Mg/Ml 2 Ml Vial) 4 mg IV Q4H PRN PRN Reason: Nausea And Vomiting Stop: 04/22/20 17:31 Last Admin: 03/24/20 17:11 Dose: 4 mg Documented by: Pantoprazole Sodium (Pantoprazole 40 Mg Tab) 40 mg PO BID [facility] Stop: 04/22/20 20:59 Last Admin: 03/25/20 08:35 Dose: 40 mg Documented by: Potassium Chloride (Potassium Chloride Crtab 20 Meq Tabcr) 20 meq PO QAM [facility] Stop: 04/23/20 08:59 Last Admin: 03/25/20 08:36 Dose: 20 meq Documented by: Quetiapine Fumarate (Quetiapine Fumarate 200 Mg Tab) 400 mg PO HS [facility] Stop: 04/23/20 20:59 Last Admin: 03/24/20 20:29 Dose: 400 mg Documented by: Venlafaxine HCl (Venlafaxine Hcl Xr 75 Mg Capxr) 225 mg PO DAILY [facility] Stop: 04/23/20 08:59 Last Admin: 03/25/20 08:34 Dose: 225 mg Documented by: PG Care Time/CCT Total # of Minutes Spent Total Time Spent with Patient: Total time spent is greater than 50% in coordination of care (as documented) at patient's floor/unit and/or counseling patient: Coding Level of Care Code 88365 Subseq Hosp Care Lvl 3 Diagnoses Acute on chronic diastolic (congestive) heart failure I50.33 Atrial fibrillation, permanent I48.21 Pulmonary hypertension I27.20 Hypertension I10
[2020-03-25] MEDS ORDERED: POTASSIUM CHLORIDE CRTAB 20 MEQ TABCR PO ONE (12:00)
[2020-03-25] MEDS: FUROSEMIDE 80 MG in SYRINGE 0 ML IV SCH (16:01)
--- NOTE | 2020-03-25 17:46 | Billing Data ---
Date of Service March 25, 2020 Coding Level of Care Code 85045 Subseq Hosp Care Lvl 3
[2020-03-25] MEDS: QUEtiapine FUMARATE 200 MG TAB PO SCH (20:17)
--- NOTE | 2020-03-26 06:38 | Hospitalist Progress Note ---
Date of Service March 26, 2020 Assessment & Plan (1) Acute on chronic diastolic (congestive) heart failure: Jeronimo Nguyen is an 79 F with PMHx of chronic diastolic CHF, HTN, afib on Eliquis, GERD, schizoaffective disorder, and depression who presented with acute shortness of breath. Likely CHF exacerbation, currently diuresing. Oxygenating well on nasal cannula. Psychiatric concerns but has been better controlled since restarting his home meds. Cardiology and psych consulted. Diastolic CHF, acute on chronic: - Serial troponins negative - BNP borderline elevated - CXR with pulmonary edema - Echo: Normal LV size & fxn (EF 65-70%). Moderate concentric LVH. Severe left atrial dilation. Mild pulmonary HTN (RVSP 46mmHg). - Cardiology consult: - He appears hypervolemic. Continue Lasix 40 mg IV twice daily. Goal is to diurese at least 1 liter negative fluid balance this 24 hours. If not achieving that goal, please increase Lasix to 80 mg IV twice daily. Low-sodium diet, less than 2000 mg daily. Daily weights. Strict I&Os. - 03/25/20: per cardiology, inadequate 24 hr diuresis. increased to 80 mg IV BID - KCl 20mEq PO daily while diuresing. 03/25/20 increased to 40 meq daily - 80 meq additional KCl provided today 03/25/20 because of the increased lasix - Low-sodium diet with fluid restriction - PT/OT consulted - CMP in AM - added 5mg torsemide x1 03/26/20 because uop inadequate w/ 80 lasix IV BID. ordered bladder scan in PM to check for urinary retention. on physical exam, patient's abdomen does appear distended - 03/26/20 AM chart check: 1L in 825 out 24 hrs. cumulative 2454 in 3925 out net -1460. - 03/26/20 PM chart check: [id number] (11 hours) 03/27/20 505 in. 800 out. net - 295ml. Acute hypoxic respiratory failure: - SaO2 of 84% on room air on arrival, tachypnea, diaphoresis - Sec to CHF exacerbation - Improved on 2 L nasal cannula with IV Lasix - Continue to diurese as above Hypertension: - Significantly hypertensive on admission, SBP low 200s at bedside over 100 - Had missed medications but normotensive since continuing home meds - Continue Diltiazem, Imdur, Losartan - consider outpatient sleep study Chronic atrial fibrillation: - Initial EKG w/ afib, rate controlled - Echo as above -Continue Eliquis 5 mg twice daily, rate controlled with diltiazem - Cardiology consult: - Asymptomatic. Heart rate well controlled. Continue diltiazem, his chronic rate-controlling medication. Continue anticoagulation for stroke risk reduction. Schizoaffective disorder: - Reported threatening auditory hallucinations on admission - Denied SI/HI - Worsening anhedonia, lack of family and friends, appears to have lack of support system in place currently - Resumed home Effexor and Seroquel - Psych consult: - suspect sleep issues are more related to cardiorespiratory status, apnea, etc than due to his primary psych condition and would avoid sedating agents at this time on top of the Seroquel. I would not change his psychiatric medications in this acute setting. - will follow his mental status as historically has intermittent SI, he is lonely where he lives and acute inpatient will not address that. Please notify service before discharging patient as chronic high risk patient. Depression: -As above GERD (gastroesophageal reflux disease): -Continue omeprazole 20 mg twice daily FENGI: Low sodium 2g, Fluid restriction 1500 mL. not on mIVF DVT ppx: Eliquis Dispo: Med Tele. dispo plan will be home via bus when diuresis is better optimized CODE: Full (2) Atrial fibrillation, permanent: (3) Hypoxia: (4) Hypertension: (5) Schizoaffective disorder: (6) Depression: (7) GERD (gastroesophageal reflux disease): Admission and Anticipated Discharge Date Admission Date: March 23, 2020 Supervising Physician Co-Signing Physician Notes I personally examined the patient and verified all torres points of history and exam, discussed case, and agree with decision making with Dr Rowell breathing is better than yesterday, but still not baseline, still needing O2 vitals noted nad heent nc at mmm breathing unlabored no accessory muscles good effort diminished bibasilar skin no rashes no pallor or icterus neuro no focal deficits acute on chronic diastolic chf - ongoing diuresis - add torsemide, spironolactone. improving. otherwise as above Subjective Patient feels same as yesterday, not any better. Some labored breathing (worse w/ supine). last bm yesterday. + epigastic abd pain, x2-3 days unchanged. + nausea. no f/c, cp, urinary symptoms, constipation, or diarrhea. + frontal (07/15) paulson new, not new. on 2L. L leg feels weaker x 2 days and inner thigh, no pain. States home weight is 250 lbs. Denies trauma. No SI/HI. + auditory hallucinations. Review of Systems Review of Systems: Constitutional: Denies fever, chills Cardiovascular: Denies chest pain Respiratory: + SOB Gastrointestinal: Denies vomiting, constipation, diarrhea Genitourinary: Denies urinary symptoms including dysuria Musculoskeletal: See HPI Neurological: Denies numbness, tingling Physical Exam Physical Exam: General: Grossly A&O. NAD. Cooperative. HEENT: Atraumatic, normocephalic. No visible JVD at 40 degrees. Pulm: CTAB. slightly shallow breaths. No respiratory distress. Cardiac: RRR, -mrg. No LE edema. Abdominal: Nontender, distended, soft. Msk: 5+/5 bilat LE strength, full ROM, sensation intact Results & Data Results & Data ([facility]) Vital Signs (Past 12 Hours) Vital Signs Temp Pulse Resp BP Pulse Ox 03/26/20 02:57 36.5 C 59 L 22 126/73 93 03/25/20 23:40 36.6 C 65 22 122/66 92 03/25/20 19:00 36.6 C 65 22 139/70 94 Resident Activity Tracking Resident Involvement: Resident Care Provided Care Provided: Adult Hospital Medicine (1) Schizoaffective disorder Schizoaffective disorder type: unspecified Qualified Code(s): F25.9 - Schizoaffective disorder, unspecified
[2020-03-26 07:56] LABS: Hematocrit (blood only) 39.1 % (42-52); Hemoglobin 12.6 g/dL (14.0-18.0); Mean Corpuscular Hemoglobin 31.1 pg (25-34); Mean Corpuscular Hgb Conc 32.2 g/dL (32-36); Mean Corpuscular Volume 96.5 fL (80-100); Mean Platelet Volume 11.5 fL (7.4-10.4); Platelet Count 163 K/uL (130-400); RDW Coefficient of Variation 14.9 % (11.5-14.5); RDW Standard Deviation 52.5 fL (36.4-46.3); Red Blood Count 4.05 M/uL (4.7-6.1); White Blood Count 6.27 K/uL (4.8-10.8)
[2020-03-26] MEDS: POTASSIUM CHLORIDE CRTAB 20 MEQ TABCR PO SCH (08:19)
[2020-03-26] MEDS: APIXABAN 5 MG TABLET PO SCH ×2 (08:19→20:27)
[2020-03-26] MEDS: PANTOprazole 40 MG TAB PO SCH ×2 (08:19→20:26)
[2020-03-26] MEDS: ISOSORBIDE MONO EXTENDED REL 30 MG TABCR PO SCH (08:19)
[2020-03-26] MEDS: dilTIAZem HCL 180 MG CAPCR PO SCH (08:20)
[2020-03-26] MEDS: LOSARTAN POTASSIUM 50 MG TAB PO SCH (08:20)
[2020-03-26] MEDS: VENLAFAXINE HCL XR 75 MG CAPXR PO SCH (08:20)
[2020-03-26] MEDS: CYANOCOBALAMIN 500 MCG TABLET (VITAMIN B-12) PO SCH (08:20)
[2020-03-26] MEDS: FUROSEMIDE 80 MG in SYRINGE 0 ML IV SCH ×2 (08:21→16:30)
[2020-03-26 08:36] LABS: Albumin Globulin Ratio 0.9 (0.9-2); Albumin Level 3.2 gm/dl (3.4-5.0); Bilirubin,Total 0.7 mg/dl (0.2-1); Calcium 8.7 mg/dl (8.5-10.1); Creatinine Clr Calc Pharmacy 76.2 ml/min; Est GFR (Non-African American) 71.6; Globulin 3.4 gm/dl (2.5-4.0); Total Protein 6.6 gm/dl (6.4-8.2)
[2020-03-26] MEDS ORDERED: TORSEMIDE 10 MG TAB PO STA (15:18)
--- NOTE | 2020-03-26 19:12 | Billing Data ---
Date of Service March 26, 2020 Coding Level of Care Code 52210 Subseq Hosp Care Lvl 3
[2020-03-26] MEDS: QUEtiapine FUMARATE 200 MG TAB PO SCH (20:27)
[2020-03-27 06:38] LABS: BUN Creatinine Ratio 22.7 (10-20); Calcium 8.7 mg/dl (8.5-10.1); Creatinine Clr Calc Pharmacy 68.6 ml/min; Est GFR (African American) 73.1; Est GFR (Non-African American) 63.1; Potassium 3.7 mmol/L (3.5-5.1)
--- NOTE | 2020-03-27 07:25 | Hospitalist Progress Note ---
Date of Service March 27, 2020 Assessment & Plan (1) Acute on chronic diastolic (congestive) heart failure: Jeronimo Nguyen is an 79 F with PMHx of chronic diastolic CHF, HTN, afib on Eliquis, GERD, schizoaffective disorder, and depression who presented with acute shortness of breath. Likely CHF exacerbation, currently diuresing. Oxygenating well on nasal cannula. Psychiatric concerns but has been better controlled since restarting his home meds. Diastolic CHF, acute on chronic: - Serial troponins negative - BNP borderline elevated - CXR with pulmonary edema - Echo: Normal LV size & fxn (EF 65-70%). Moderate concentric LVH. Severe left atrial dilation. Mild pulmonary HTN (RVSP 46mmHg). - Cardiology consult: - He appears hypervolemic. Continue Lasix 40 mg IV twice daily. Goal is to diurese at least 1 liter negative fluid balance this 24 hours. If not achieving that goal, please increase Lasix to 80 mg IV twice daily. Low-sodium diet, less than 2000 mg daily. Daily weights. Strict I&Os. - 03/25/20: per cardiology, inadequate 24 hr diuresis. increased to 80 mg IV BID - added 5mg PO torsemide x1 03/26/20 because uop inadequate w/ 80 lasix IV BID. ordered bladder scan in PM to check for urinary retention. on physical exam, patient's abdomen does appear distended 03/27/20 provided AM dose of torsemide 5mg PO. - 03/26/20 AM chart check: inadequate UOP. 1L in 825 out 24 hrs. - 03/26/20 PM chart check: inadequate [id number] (11 hours) 03/27/20 505 in. 800 out. net -295ml. - 03/27/20 good UOP. 24 hr overnight checked at 7am. 845 in 2300 out. net - 1455mL. 7am-530pm 790in 1500 out. net -710. cumulative since 03/23/20: 4.1L in. 7.6L out, net -3.5L - dyspnea w/ slight improvement 03/27/20 s/p diuresis. this AM, patient saturated at 95% on room air while being examined during rounds. continue diuresis and attempt to wean off O2 tomorrow. - CMP in AM Acute hypoxic respiratory failure: - SaO2 of 84% on room air on arrival, tachypnea, diaphoresis - Sec to CHF exacerbation - Improved on 2 L nasal cannula with IV Lasix - Continue to diurese as above Hypertension: - Significantly hypertensive on admission, SBP low 200s at bedside over 100 - Had missed medications but normotensive since continuing home meds - Continue Diltiazem, Imdur, Losartan - consider outpatient sleep study Chronic atrial fibrillation: - Initial EKG w/ afib, rate controlled - Echo as above -Continue Eliquis 5 mg twice daily, rate controlled with diltiazem - Cardiology consult: - Asymptomatic. Heart rate well controlled. Continue diltiazem, his chronic rate-controlling medication. Continue anticoagulation for stroke risk reduction. Schizoaffective disorder: - Reported threatening auditory hallucinations on admission - Denied SI/HI - Worsening anhedonia, lack of family and friends, appears to have lack of support system in place currently - Resumed home Effexor and Seroquel - Psych consult: - suspect sleep issues are more related to cardiorespiratory status, apnea, etc than due to his primary psych condition and would avoid sedating agents at this time on top of the Seroquel. I would not change his psychiatric medications in this acute setting. - will follow his mental status as historically has intermittent SI, he is lonely where he lives and acute inpatient will not address that. Please notify service before discharging patient as chronic high risk patient. Depression: -As above GERD (gastroesophageal reflux disease): -Continue omeprazole 20 mg twice daily FENGI: Low sodium 2g, Fluid restriction 1500 mL. not on mIVF DVT ppx: Eliquis Dispo: Med Tele. dispo plan will be home via bus when diuresis is better optimized, possibly 03/28/20. CODE: Full (2) Atrial fibrillation, permanent: (3) Hypoxia: (4) Hypertension: (5) Schizoaffective disorder: (6) Depression: (7) GERD (gastroesophageal reflux disease): Admission and Anticipated Discharge Date Admission Date: March 23, 2020 Supervising Physician Co-Signing Physician Notes I personally examined the patient and verified all torres points of history and exam, discussed case, and agree with decision making with Dr Sorin martinsign continues to slowly improve. actually had O2 off when i saw him - checked pulse ox ~95% on RA vitals noted nad heent nc at mmm breathing unlabored no accessory muscles good effort lungs clear no r/r/w skin no rashes no pallor or icterus neuro no focal deficits acute on chronic diastolic chf - ongoing diuresis - improving. ambulate - ?try to ambulate off O2. possibly home soon given ongoing improvement otherwise as above Subjective Breathing is slightly better today. (10 being best, 9 was his baseline, he states he improved from 4/10 yesterday to 5/10 today). No other complaints. Passed small BM yesterday. Urinated a lot more yesterday after the torsemide 5 mg was added. Review of Systems Review of Systems: Constitutional: Denies fever, chills Cardiovascular: Denies chest pain Respiratory: See HPI Gastrointestinal: Denies abdominal pain, nausea, vomiting, constipation, diarrhea Genitourinary: Denies urinary symptoms including dysuria Neurological: Denies headache, numbness, tingling Physical Exam Physical Exam: General: Grossly A&O. NAD. Cooperative. HEENT: Atraumatic, normocephalic. Pulm: CTAB, but mildly labored. Cardiac: RRR, -mrg. minimal, trace LE edema. Abdominal: Sft, distended. Mild ttp at epigastrium Results & Data Results & Data ([facility]) Vital Signs (Past 12 Hours) Vital Signs Temp Pulse Resp BP Pulse Ox 03/27/20 04:15 36.8 C 65 20 136/73 94 03/26/20 23:57 37.0 C 108 H 20 147/81 H 94 03/26/20 19:54 36.9 C 65 20 119/55 L 96 Resident Activity Tracking Resident Involvement: Resident Care Provided Care Provided: Adult Hospital Medicine (1) Schizoaffective disorder Schizoaffective disorder type: unspecified Qualified Code(s): F25.9 - Schizoaffective disorder, unspecified
[2020-03-27] MEDS ORDERED: SPIRONOLACTONE 25 MG TAB PO SCH (09:00)
[2020-03-27] MEDS: PANTOprazole 40 MG TAB PO SCH ×2 (09:39→19:53)
[2020-03-27] MEDS: POTASSIUM CHLORIDE CRTAB 20 MEQ TABCR PO SCH (09:39)
[2020-03-27] MEDS: APIXABAN 5 MG TABLET PO SCH ×2 (09:40→19:53)
[2020-03-27] MEDS: dilTIAZem HCL 180 MG CAPCR PO SCH (09:40)
[2020-03-27] MEDS: ISOSORBIDE MONO EXTENDED REL 30 MG TABCR PO SCH (09:41)
[2020-03-27] MEDS: CYANOCOBALAMIN 500 MCG TABLET (VITAMIN B-12) PO SCH (09:41)
[2020-03-27] MEDS: FUROSEMIDE 80 MG in SYRINGE 0 ML IV SCH ×2 (09:42→16:40)
[2020-03-27] MEDS: VENLAFAXINE HCL XR 75 MG CAPXR PO SCH (09:42)
[2020-03-27] MEDS: LOSARTAN POTASSIUM 50 MG TAB PO SCH (09:42)
[2020-03-27] MEDS ORDERED: TORSEMIDE 10 MG TAB PO ONE (09:45)
--- NOTE | 2020-03-27 13:14 | Cardiology Progress Note ---
Date of Service March 27, 2020 Assessment & Plan (1) Acute on chronic diastolic (congestive) heart failure: (2) Atrial fibrillation, permanent: (3) Pulmonary hypertension: (4) Hypertension: ASSESSMENT/PLAN: 1. Acute on chronic diastolic CHF: Continues to improve. Weight has been tr ending down nicely the last 2 days. Can continue current diuretic regimen. Primary hospitalist service has added 5 mg of IV torsemide today and yesterday. He is approaching euvolemia. Low-sodium diet, less than 2000 mg daily. Daily weights. Strict I&Os. Continue to monitor renal function and electrolytes. 2. Permanent atrial fibrillation: Asymptomatic. Normal heart rate. Continue diltiazem, his chronic rate-controlling medication. Continue anticoagulation for stroke risk reduction. 3. Hypertension: Blood pressure reasonably well controlled. Continue current regimen. 4. Pulmonary hypertension: Noted on echo. Likely due to left heart failure. Continue diuresis as above. 5. Disposition: Cardiology will continue to follow. He should have close follow-up with his local physicians on discharge ([facility]). Recommended that he ambulate in the hallway today. He will likely be ready for discharge in the next 1-2 days, pending symptoms and ability to wean from oxygen, as well as ambulation. Admission and Anticipated Discharge Date Admission Date: March 23, 2020 Subjective He feels better now than he has since being here. Shortness of breath has significantly improved but not yet back to baseline. He denies orthopnea, chest pain, syncope, near-syncope, palpitations. He has not yet ambulated in the hallway. According to nursing notes, he has not always collected his urine throughout this hospital stay but despite this, he had a nice net negative fluid balance yesterday and so far today. Review of systems: As above. Physical Exam Physical Exam: Gen.: No acute distress. Alert. HEENT: Anicteric sclera. Neck: Thick neck. No obvious JVD. Cardiac: PMI was nondisplaced. No ventricular heave. Irregularly irregular. Normal heart rate. Normal S1-S2. 2/6 early peaking systolic ejection murmur. No rubs or gallops. Pulmonary: Clear to auscultation bilaterally without wheezes, rales, or rhonchi. Abdomen: Soft, nontender, nondistended, with normoactive bowel sounds. No bruits noted. Extremities: 2+ radial pulses bilaterally. Trace bilateral lower extremity edema. No cyanosis. Psychiatric: Affect appears appropriate. Results & Data ([facility]) Vital Signs (Past 12 Hours) Vital Signs Temp Pulse Pulse Resp BP BP Pulse Ox 03/27/20 11:57 36.8 C 63 20 118/65 96 03/27/20 07:31 36.9 C 57 L 18 138/79 94 03/27/20 07:26 60 03/27/20 04:15 36.8 C 65 20 136/73 94 Intake & Output 03/25/20 03/26/20 03/27/20 03/28/20 06:59 06:59 06:59 06:59 Intake Total 800 / 800 1005 / 1005 845 / 845 Output Total 550 / 550 825 / 825 2300 / 2300 750 / 750 Balance 250 / 250 180 / 180 -1455 / -1455 -750 / -750 Weight 263 lb 0.183 oz 257 lb 7.999 oz 252 lb 13.923 oz Laboratory Results Laboratory Results - last 24 hr 03/27/20 05:30 Sodium 144 Potassium 3.7 Chloride 107 Carbon Dioxide 34 H Anion Gap 3.0 BUN 25 H Creatinine 1.10 Est Cr Clr Drug Dosing 68.6 Est GFR ( Amer) 73.1 Est GFR (Non-Af Amer) 63.1 BUN/Creatinine Ratio 22.7 H Glucose 102 H Calcium 8.7 Diagnostic Findings Telemetry personally viewed: Rate controlled atrial fibrillation. No significant pauses. Chart reviewed. Medications Administered Current Inpatient Medications Acetaminophen (Acetaminophen 325 Mg Tab) 650 mg PO Q4H PRN PRN Reason: Moderate Pain Stop: 04/22/20 17:31 Apixaban (Apixaban 5 Mg Tablet) 5 mg PO BID COUNT INCLUDES [facility] Stop: 04/22/20 20:59 Last Admin: 03/27/20 09:40 Dose: 5 mg Documented by: Cyanocobalamin (Cyanocobalamin 500 Mcg Tablet (Vitamin B-12)) 1,000 mcg PO DAILY COUNT INCLUDES THE [facility] Stop: 04/23/20 08:59 Last Admin: 03/27/20 09:41 Dose: 1,000 mcg Documented by: Diltiazem HCl (Diltiazem Hcl 180 Mg Capcr) 360 mg PO QAM COUNT INCLUDES [facility] Stop: 04/22/20 14:29 Last Admin: 03/27/20 09:40 Dose: 360 mg Documented by: Furosemide 80 mg/ Syringe 8 mls @ 4 mls/min IV BID17 [facility] Stop: 04/24/20 16:59 Last Admin: 03/27/20 09:42 Dose: 4 mls/min Documented by: Isosorbide Mononitrate (Isosorbide [place] Extended Rel 30 Mg Tabcr) 90 mg PO DA YANNI COUNT INCLUDES THE [facility] Stop: 04/23/20 08:59 Last Admin: 03/27/20 09:41 Dose: 90 mg Documented by: Losartan Potassium (Losartan Potassium 50 Mg Tab) 50 mg PO DAILY COUNT INCLUDES [facility] Stop: 04/22/20 14:23 Last Admin: 03/27/20 09:42 Dose: 50 mg Documented by: Ondansetron HCl (Ondansetron Inj 2 Mg/Ml 2 Ml Vial) 4 mg IV Q4H PRN PRN Reason: Nausea And Vomiting Stop: 04/22/20 17:31 Last Admin: 03/24/20 17:11 Dose: 4 mg Documented by: Pantoprazole Sodium (Pantoprazole 40 Mg Tab) 40 mg PO BID COUNT INCLUDES [facility] Stop: 04/22/20 20:59 Last Admin: 03/27/20 09:39 Dose: 40 mg Documented by: Potassium Chloride (Potassium Chloride Crtab 20 Meq Tabcr) 40 meq PO QAM COUNT INCLUDES THE [facility] Stop: 04/25/20 08:59 Last Admin: 03/27/20 09:39 Dose: 40 meq Documented by: Quetiapine Fumarate (Quetiapine Fumarate 200 Mg Tab) 400 mg PO HS COUNT INCLUDES THE [facility] Stop: 04/23/20 20:59 Last Admin: 03/26/20 20:27 Dose: 400 mg Documented by: Venlafaxine HCl (Venlafaxine Hcl Xr 75 Mg Capxr) 225 mg PO DAILY COUNT INCLUDES [facility] Stop: 04/23/20 08:59 Last Admin: 03/27/20 09:42 Dose: 225 mg Documented by: PG Care Time/CCT Total # of Minutes Spent Total Time Spent with Patient: Total time spent is greater than 50% in coordination of care (as documented) at patient's floor/unit and/or counseling patient: Coding Level of Care Code 42218 Subseq Hosp Care Lvl 3 Diagnoses Acute on chronic diastolic (congestive) heart failure I50.33 Atrial fibrillation, permanent I48.21 Pulmonary hypertension I27.20 Hypertension I10
--- NOTE | 2020-03-27 17:27 | Billing Data ---
Date of Service March 27, 2020 Coding Level of Care Code 23328 Subseq Hosp Care Lvl 3
[2020-03-27] MEDS: QUEtiapine FUMARATE 200 MG TAB PO SCH (19:53)
[2020-03-28 06:28] LABS: BUN Creatinine Ratio 24.5 (10-20); Calcium 8.5 mg/dl (8.5-10.1); Creatinine Clr Calc Pharmacy 63.9 ml/min; Est GFR (African American) 67.8; Est GFR (Non-African American) 58.5
--- NOTE | 2020-03-28 06:46 | Hospitalist Progress Note ---
Date of Service March 28, 2020 Assessment & Plan (1) Acute on chronic diastolic (congestive) heart failure: Jeronimo Nguyen is an 79 F with PMHx of chronic diastolic CHF, HTN, afib on Eliquis, GERD, schizoaffective disorder, and depression who presented with acute shortness of breath. Likely CHF exacerbation, currently diuresing. Oxygenating well on nasal cannula. Psychiatric concerns but has been better controlled since restarting his home meds. Diastolic CHF, acute on chronic: - Serial troponins negative - BNP borderline elevated - CXR with pulmonary edema - Echo: Normal LV size & fxn (EF 65-70%). Moderate concentric LVH. Severe left atrial dilation. Mild pulmonary HTN (RVSP 46mmHg). - Cardiology consult: - He appears hypervolemic. Continue Lasix 40 mg IV twice daily. Goal is to diurese at least 1 liter negative fluid balance this 24 hours. If not achieving that goal, please increase Lasix to 80 mg IV twice daily. Low-sodium diet, less than 2000 mg daily. Daily weights. Strict I&Os. - 03/25/20: per cardiology, inadequate 24 hr diuresis. increased to 80 mg IV BID - added 5mg PO torsemide x1 03/26/20 because uop inadequate w/ 80 lasix IV BID. ordered bladder scan in PM to check for urinary retention. on physical exam, patient's abdomen does appear distended 03/27/20 provided AM dose of torsemide 5mg PO. - 03/26/20 AM chart check: inadequate UOP. 1L in 825 out 24 hrs. - 03/26/20 PM chart check: inadequate [id number] (11 hours) 03/27/20 505 in. 800 out. net -295ml. - 03/27/20 good UOP. 24 hr overnight checked at 7am. 845 in 2300 out. net - 1455mL. 7am-530pm 790in 1500 out. net -710. cumulative since 03/23/20: 4.1L in. 7.6L out, net -3.5L - dyspnea w/ slight improvement 03/27/20 s/p diuresis. this AM, patient saturated at 95% on room air while being examined during rounds. continue diuresis and attempt to wean off O2 tomorrow. 03/28/20 CO2 3H, stable, supports contraction alkalosis as proxy of diuresis working. BUN 22->25->29. Cr .99->1.10->1.17. 24 hour I/O checked at 0700AM 1L in, 2L out. cumulative 4.3 in, 8.1 out - diuresis went well. patient's tolerated ambulation on room air. patient is likely near euvolemia. plan is dispo home tomorrow. lasix 40 mg PO BID outpatient regimen recommended by cardiology. called and made phone appointment (per policy because recent hospital admission) at [facility] ([place]) at 11AM. Patient will be called at his cell at [phone]. - CMP in AM Acute hypoxic respiratory failure: - SaO2 of 84% on room air on arrival, tachypnea, diaphoresis - Sec to CHF exacerbation - Improved on 2 L nasal cannula with IV Lasix - will d/c iv lasix 03/28/20 pm and start PO lasix 40 mg bid upon dispo home Hypertension: - Significantly hypertensive on admission, SBP low 200s at bedside over 100 - Had missed medications but normotensive since continuing home meds - Continue Diltiazem, Imdur, Losartan - consider outpatient sleep study Chronic atrial fibrillation: - Initial EKG w/ afib, rate controlled - Echo as above -Continue Eliquis 5 mg twice daily, rate controlled with diltiazem - Cardiology consult: - Asymptomatic. Heart rate well controlled. Continue diltiazem, his chronic rate-controlling medication. Continue anticoagulation for stroke risk reduction. Schizoaffective disorder: - Reported threatening auditory hallucinations on admission - Denied SI/HI - Worsening anhedonia, lack of family and friends, appears to have lack of support system in place currently - Resumed home Effexor and Seroquel - Psych consult: - suspect sleep issues are more related to cardiorespiratory status, apnea, etc than due to his primary psych condition and would avoid sedating agents at this time on top of the Seroquel. I would not change his psychiatric medications in this acute setting. - will follow his mental status as historically has intermittent SI, he is lonely where he lives and acute inpatient will not address that. Please notify service before discharging patient as chronic high risk patient. Depression: -As above GERD (gastroesophageal reflux disease): -Continue omeprazole 20 mg twice daily FENGI: Low sodium 2g, Fluid restriction 1500 mL. not on mIVF DVT ppx: Eliquis 5mg BID Dispo: Med Tele. will dispo home on 03/29/20. case management has arranged taxi voucher to bus [employer] and bus ticket to [place]. PCP f/u phone apt has been made for 04/01/20 at 11AM. CODE: Full (2) Atrial fibrillation, permanent: (3) Hypoxia: (4) Hypertension: (5) Schizoaffective disorder: (6) Depression: (7) GERD (gastroesophageal reflux disease): Admission and Anticipated Discharge Date Admission Date: March 23, 2020 Supervising Physician Co-Signing Physician Notes I personally examined the patient and verified all torres points of history and exam, discussed case, and agree with decision making with Dr Rowell feeling better breathing better, making arrangements to safely get home vitals noted nad heent nc at mmm breathing unlabored no accessory muscles good effort lungs clear no r/r/w skin no rashes no pallor or icterus neuro no focal deficits acute on chronic diastolic chf - off O2 appearing fairly compensated now - working on safe transit home and outpt f/u. hopefully home tomorrow otherwise as above Subjective Fatigued. Breathing a little labored but better than yesteday, 6/10 today (10 being the best). + nausea. Doesn't feel ready to go home because doesn't feel good, nausea and breathing. last BM 2 days ago. PM recheck: feels ready to go home tomorrow. - hx afib but no palpitations - on room air Review of Systems Review of Systems: Constitutional: Denies fever, chills Cardiovascular: Denies chest pain, palpitations Respiratory: See HPI Gastrointestinal: Denies vomiting, constipation, diarrhea Genitourinary: Denies urinary symptoms including dysuria Neurological: Denies headache, numbness, tingling Physical Exam Physical Exam: General: Grossly A&O. NAD. Cooperative. HEENT: Atraumatic, normocephalic. No obvious jvd noted. Pulm: Mild exp rhonchi, worse at bases. No respiratory distress. Cardiac: RRR, -mrg. Radial pulses intact and symmetrical. No LE edema. Abdominal: Distended, soft. Mild periumbilical/epigastric ttp. + BS Psych: No SI/HI. + auditory hallucinations Results & Data Results & Data ([facility]) Vital Signs (Past 12 Hours) Vital Signs Temp Pulse Pulse Resp BP BP Pulse Ox 03/28/20 03:49 36.4 C L 59 L 20 129/69 93 03/28/20 01:10 126 H 03/28/20 00:00 36.4 C L 59 L 20 105/55 L 94 03/27/20 19:48 36.5 C 69 18 124/67 93 Resident Activity Tracking Resident Involvement: Resident Care Provided Care Provided: Adult Hospital Medicine (1) Schizoaffective disorder Schizoaffective disorder type: unspecified Qualified Code(s): F25.9 - Schizoaffective disorder, unspecified
[2020-03-28] MEDS: ISOSORBIDE MONO EXTENDED REL 30 MG TABCR PO SCH (08:40)
[2020-03-28] MEDS: LOSARTAN POTASSIUM 50 MG TAB PO SCH (08:41)
[2020-03-28] MEDS: dilTIAZem HCL 180 MG CAPCR PO SCH (08:41)
[2020-03-28] MEDS: PANTOprazole 40 MG TAB PO SCH ×2 (08:41→20:11)
[2020-03-28] MEDS: POTASSIUM CHLORIDE CRTAB 20 MEQ TABCR PO SCH (08:41)
[2020-03-28] MEDS: FUROSEMIDE 80 MG in SYRINGE 0 ML IV SCH (08:41)
[2020-03-28] MEDS: APIXABAN 5 MG TABLET PO SCH ×2 (08:41→20:12)
[2020-03-28] MEDS: VENLAFAXINE HCL XR 75 MG CAPXR PO SCH (08:42)
[2020-03-28] MEDS: ONDANSETRON INJ 2 MG/ML 2 ML VIAL IV PRN (08:54)
[2020-03-28] MEDS: CYANOCOBALAMIN 500 MCG TABLET (VITAMIN B-12) PO SCH (09:09)
[2020-03-28] MEDS ORDERED: TORSEMIDE 10 MG TAB PO ONE (11:30)
--- NOTE | 2020-03-28 14:10 | Cardiology Progress Note ---
Date of Service March 28, 2020 Assessment & Plan (1) Acute on chronic diastolic (congestive) heart failure: (2) Atrial fibrillation, permanent: (3) Pulmonary hypertension: (4) Hypertension: ASSESSMENT/PLAN: 1. Acute on chronic diastolic CHF: Appears euvolemic on examination. Has di uresed nicely and BUN and creatinine are starting to increased, suggesting azotemia. Discontinue intravenous diuretics and start Lasix 40 mg p.o. b.i.d. tomorrow (increased from his home dose of 40 mg once daily). On discharge, would use the b.i.d. dosing based on today's evaluation. Low-sodium diet, less than 2000 mg daily. Daily weights. Strict I&Os. Continue to monitor renal function and electrolytes. 2. Permanent atrial fibrillation: Asymptomatic. Normal heart rate. Continue diltiazem, his chronic rate-controlling medication. Continue anticoagulation for stroke risk reduction. 3. Hypertension: Blood pressure is well controlled. Adjusting diuretic as above. 4. Pulmonary hypertension: Noted on echo. Likely due to left heart failure. 5. Disposition: From a cardiology standpoint, can likely be discharged today and if not possible, tomorrow. Recommend close follow-up within 1 week with a provider near his home. Please provide a date and time of this appointment on his discharge paperwork. Patient care discussed with Dr. Brown of the primary hospitalist service. Admission and Anticipated Discharge Date Admission Date: March 23, 2020 Subjective He feels much better overall. He denies shortness of breath at rest or orthopnea. He ambulated in the hallways with very mild dyspnea. He denies chest pain, syncope, near-syncope, palpitations, or bleeding. Review of systems: As above. Physical Exam Physical Exam: Gen.: No acute distress. Alert. HEENT: Anicteric sclera. Neck: Thick neck. No obvious JVD. Cardiac: PMI was nondisplaced. No ventricular heave. Irregularly irregular with normal rate. Normal S1-S2. 2/6 early peaking systolic ejection murmur. No rubs or gallops. Pulmonary: Clear to auscultation bilaterally without wheezes, rales, or rhonchi. Abdomen: Soft, nontender, nondistended, with normoactive bowel sounds. No bruits noted. Extremities: 2+ radial pulses bilaterally. No significant pitting edema. No cyanosis. Psychiatric: Affect appears appropriate. Results & Data ([facility]) Vital Signs (Past 12 Hours) Vital Signs Temp Pulse Pulse Resp BP Pulse Ox 03/28/20 11:42 36.6 C 73 20 115/67 90 03/28/20 08:00 36.3 C L 68 16 149/76 H 95 03/28/20 03:49 36.4 C L 59 L 20 129/69 93 Intake & Output 03/26/20 03/27/20 03/28/20 03/29/20 06:59 06:59 06:59 06:59 Intake Total 1005 / 1005 845 / 845 1010 / 1010 Output Total 825 / 825 2300 / 2300 2024 / 2024 Balance 180 / 180 -1455 / -1455 -1015 / -1015 Weight 257 lb 7.999 oz 252 lb 13.923 oz 253 lb 8.505 oz Laboratory Results Laboratory Results - last 24 hr 03/28/20 05:42 Sodium 141 Potassium 4.0 Chloride 107 Carbon Dioxide 33 H Anion Gap 1.0 L BUN 29 H Creatinine 1.17 Est Cr Clr Drug Dosing 63.9 Est GFR ( Amer) 67.8 Est GFR (Non-Af Amer) 58.5 BUN/Creatinine Ratio 24.5 H Glucose 102 H Calcium 8.5 Diagnostic Findings Telemetry personally reviewed: Rate controlled atrial fibrillation. Medications Administered Current Inpatient Medications Acetaminophen (Acetaminophen 325 Mg Tab) 650 mg PO Q4H PRN PRN Reason: Moderate Pain Stop: 04/22/20 17:31 Last Admin: 03/28/20 08:54 Dose: 650 mg Documented by: Apixaban (Apixaban 5 Mg Tablet) 5 mg PO BID [facility] Stop: 04/22/20 20:59 Last Admin: 03/28/20 08:41 Dose: 5 mg Documented by: Cyanocobalamin (Cyanocobalamin 500 Mcg Tablet (Vitamin B-12)) 1,000 mcg PO DAILY [facility] Stop: 04/23/20 08:59 Last Admin: 03/28/20 09:09 Dose: 1,000 mcg Documented by: Diltiazem HCl (Diltiazem Hcl 180 Mg Capcr) 360 mg PO QAM [facility] Stop: 04/22/20 14:29 Last Admin: 03/28/20 08:41 Dose: 360 mg Documented by: Furosemide 80 mg/ Syringe 8 mls @ 4 mls/min IV BID17 [facility] Stop: 04/24/20 16:59 Last Admin: 03/28/20 08:41 Dose: 4 mls/min Documented by: Isosorbide Mononitrate (Isosorbide [place] Extended Rel 30 Mg Tabcr) 90 mg PO DAILY [facility] Stop: 04/23/20 08:59 Last Admin: 03/28/20 08:40 Dose: 90 mg Documented by: Losartan Potassium (Losartan Potassium 50 Mg Tab) 50 mg PO DAILY [facility] Stop: 04/22/20 14:23 Last Admin: 03/28/20 08:41 Dose: 50 mg Documented by: Ondansetron HCl (Ondansetron Inj 2 Mg/Ml 2 Ml Vial) 4 mg IV Q4H PRN PRN Reason: Nausea And Vomiting Stop: 04/22/20 17:31 Last Admin: 03/28/20 08:54 Dose: 4 mg Documented by: Pantoprazole Sodium (Pantoprazole 40 Mg Tab) 40 mg PO BID [facility] Stop: 04/22/20 20:59 Last Admin: 03/28/20 08:41 Dose: 40 mg Documented by: Potassium Chloride (Potassium Chloride Crtab 20 Meq Tabcr) 40 meq PO QAM [facility] Stop: 04/25/20 08:59 Last Admin: 03/28/20 08:41 Dose: 40 meq Documented by: Quetiapine Fumarate (Quetiapine Fumarate 200 Mg Tab) 400 mg PO HS [facility] Stop: 04/23/20 20:59 Last Admin: 03/27/20 19:53 Dose: 400 mg Documented by: Venlafaxine HCl (Venlafaxine Hcl Xr 75 Mg Capxr) 225 mg PO DAILY [facility] Stop: 04/23/20 08:59 Last Admin: 03/28/20 08:42 Dose: 225 mg Documented by: PG Care Time/CCT Total # of Minutes Spent Total Time Spent with Patient: Total time spent is greater than 50% in coordination of care (as documented) at patient's floor/unit and/or counseling patient: Coding Level of Care Code 45764 Subseq Hosp Care Lvl 3 Diagnoses Acute on chronic diastolic (congestive) heart failure I50.33 Atrial fibrillation, permanent I48.21 Pulmonary hypertension I27.20 Hypertension I10
--- NOTE | 2020-03-28 18:08 | Billing Data ---
Date of Service March 28, 2020 Coding Level of Care Code 18476 Subseq Hosp Care Lvl 2
[2020-03-28] MEDS: QUEtiapine FUMARATE 200 MG TAB PO SCH (20:12)
--- NOTE | 2020-03-29 06:48 | Hospitalist Progress Note ---
Date of Service March 29, 2020 Assessment & Plan (1) Acute on chronic diastolic (congestive) heart failure: Jeronimo Nguyen is an 79 F with PMHx of chronic diastolic CHF, HTN, afib on Eliquis, GERD, schizoaffective disorder, and depression who presented with acute shortness of breath. Likely CHF exacerbation, currently diuresing. Oxygenating well on nasal cannula. Psychiatric concerns but has been better controlled since restarting his home meds. Diastolic CHF, acute on chronic: - Serial troponins negative - BNP borderline elevated - CXR with pulmonary edema - Echo: Normal LV size & fxn (EF 65-70%). Moderate concentric LVH. Severe left atrial dilation. Mild pulmonary HTN (RVSP 46mmHg). - Cardiology consult: - He appears hypervolemic. Continue Lasix 40 mg IV twice daily. Goal is to diurese at least 1 liter negative fluid balance this 24 hours. If not achieving that goal, please increase Lasix to 80 mg IV twice daily. Low-sodium diet, less than 2000 mg daily. Daily weights. Strict I&Os. - 03/25/20: per cardiology, inadequate 24 hr diuresis. increased to 80 mg IV BID - added 5mg PO torsemide x1 03/26/20 because uop inadequate w/ 80 lasix IV BID. ordered bladder scan in PM to check for urinary retention. on physical exam, patient's abdomen does appear distended 03/27/20 provided AM dose of torsemide 5mg PO. - 03/26/20 AM chart check: inadequate UOP. 1L in 825 out 24 hrs. - 03/26/20 PM chart check: inadequate [id number] (11 hours) 03/27/20 505 in. 800 out. net -295ml. - 03/27/20 good UOP. 24 hr overnight checked at 7am. 845 in 2300 out. net - 1455mL. 7am-530pm 790in 1500 out. net -710. cumulative since 03/23/20: 4.1L in. 7.6L out, net -3.5L - dyspnea w/ slight improvement 03/27/20 s/p diuresis. this AM, patient saturated at 95% on room air while being examined during rounds. continue diuresis and attempt to wean off O2 tomorrow. 03/28/20 CO2 3H, stable, supports contraction alkalosis as proxy of diuresis working. BUN 22->25->29. Cr .99->1.10->1.17. 24 hour I/O checked at 0700AM 1L in, 2L out. cumulative 4.3 in, 8.1 out - diuresis went well. patient's tolerated ambulation on room air. patient is likely near euvolemia. plan is dispo home tomorrow. lasix 40 mg PO BID outpatient regimen recommended by cardiology. called and made phone appointment (per policy because recent hospital admission) at [facility] ([place]) at 11AM. Patient will be called at his cell at [phone]. - CMP in AM Acute hypoxic respiratory failure: - SaO2 of 84% on room air on arrival, tachypnea, diaphoresis - Sec to CHF exacerbation - Improved on 2 L nasal cannula with IV Lasix - will d/c iv lasix 03/28/20 pm and start PO lasix 40 mg bid upon dispo home Hypertension: - Significantly hypertensive on admission, SBP low 200s at bedside over 100 - Had missed medications but normotensive since continuing home meds - Continue Diltiazem, Imdur, Losartan - consider outpatient sleep study Chronic atrial fibrillation: - Initial EKG w/ afib, rate controlled - Echo as above -Continue Eliquis 5 mg twice daily, rate controlled with diltiazem - Cardiology consult: - Asymptomatic. Heart rate well controlled. Continue diltiazem, his chronic rate-controlling medication. Continue anticoagulation for stroke risk reduction. Schizoaffective disorder: - Reported threatening auditory hallucinations on admission - Denied SI/HI - Worsening anhedonia, lack of family and friends, appears to have lack of support system in place currently - Resumed home Effexor and Seroquel - Psych consult: - suspect sleep issues are more related to cardiorespiratory status, apnea, etc than due to his primary psych condition and would avoid sedating agents at this time on top of the Seroquel. I would not change his psychiatric medications in this acute setting. - will follow his mental status as historically has intermittent SI, he is lonely where he lives and acute inpatient will not address that. Please notify service before discharging patient as chronic high risk patient. Depression: -As above GERD (gastroesophageal reflux disease): -Continue omeprazole 20 mg twice daily FENGI: Low sodium 2g, Fluid restriction 1500 mL. not on mIVF DVT ppx: Eliquis 5mg BID Dispo: Med Tele. will dispo home on 03/29/20. case management has arranged taxi voucher to bus [place] and bus ticket to [place]. PCP f/u phone apt has been made for 04/01/20 at 11AM. CODE: Full (2) Atrial fibrillation, permanent: (3) Hypoxia: (4) Hypertension: (5) Schizoaffective disorder: (6) Depression: (7) GERD (gastroesophageal reflux disease): Admission and Anticipated Discharge Date Admission Date: March 23, 2020 Subjective Urinated less yesterday.Breathing is good. Eating ok. Feels ready to go home today. Review of Systems Review of Systems: Constitutional: Denies fever, chills Eyes: Denies blurry vision, vision changes Cardiovascular: Denies chest pain, palpitations Respiratory: Denies shortness of breath Gastrointestinal: Denies abdominal pain, nausea, vomiting, constipation, diarrhea Genitourinary: Denies urinary symptoms including dysuria Musculoskeletal: Denies weakness, muscle aches/pain, joint aches/pain Neurological: Denies headache, numbness, tingling, focal weakness Physical Exam Physical Exam: General: Grossly A&O. NAD. Cooperative. Sleeping comfortably, arousable. HEENT: Atraumatic, normocephalic. Pulm: Slightly diminished breath sounds. Mild expiratory rhonchi mid/lower lung green. No respiratory distress. Cardiac: irreg irreg rate. no murmurs. No JVD. No LE edema. Abdominal: Nontender, distended, soft. Psych: No SI/HI Results & Data Results & Data ([facility]) Vital Signs (Past 12 Hours) Vital Signs Temp Pulse Pulse Resp BP Pulse Ox 03/29/20 04:31 36.5 C 86 18 131/64 91 03/29/20 01:22 54 L 03/28/20 23:42 37.0 C 58 L 18 121/77 92 03/28/20 20:20 37.1 C 84 20 153/87 H 96 (1) Schizoaffective disorder Schizoaffective disorder type: unspecified Qualified Code(s): F25.9 - Schizoaffective disorder, unspecified
[2020-03-29 06:57] LABS: BUN Creatinine Ratio 20.4 (10-20); Calcium 8.9 mg/dl (8.5-10.1); Creatinine Clr Calc Pharmacy 49.8 ml/min; Est GFR (African American) 50.2; Est GFR (Non-African American) 43.3
[2020-03-29] MEDS ORDERED: TORSEMIDE 10 MG TAB PO ONE (07:15)
[2020-03-29] MEDS: APIXABAN 5 MG TABLET PO SCH (08:29)
[2020-03-29] MEDS: PANTOprazole 40 MG TAB PO SCH (08:29)
[2020-03-29] MEDS: POTASSIUM CHLORIDE CRTAB 20 MEQ TABCR PO SCH (08:30)
[2020-03-29] MEDS: ISOSORBIDE MONO EXTENDED REL 30 MG TABCR PO SCH (08:30)
[2020-03-29] MEDS: CYANOCOBALAMIN 500 MCG TABLET (VITAMIN B-12) PO SCH (08:30)
[2020-03-29] MEDS: dilTIAZem HCL 180 MG CAPCR PO SCH (08:31)
[2020-03-29] MEDS: VENLAFAXINE HCL XR 75 MG CAPXR PO SCH (08:31)
[2020-03-29] MEDS: LOSARTAN POTASSIUM 50 MG TAB PO SCH (08:32)
[2020-03-29] MEDS ORDERED: FUROSEMIDE 40 MG TAB PO SCH (09:00)
--- NOTE | 2020-03-29 09:28 | Cardiology Progress Note ---
Date of Service March 29, 2020 Assessment & Plan (1) Acute on chronic diastolic (congestive) heart failure: He appears euvolemic. Labs today show a rise in his creatinine. Would recommend holding his afternoon dose of Lasix today. Recommend discharging on PO Lasix 40 mg BID, which is increased from his [employer] dose of 40 mg daily. Recommend close follow-up of renal function to ensure he returns to baseline. Low sodium diet, <2,000 mg daily. Daily weights. (2) Atrial fibrillation, permanent: His rate is well controlled, and he is asymptomatic. Continue rate control strategy with Diltiazem 360 mg daily. Continue Eliquis for stroke risk reduction . Recommend close follow-up of renal function to ensure he returns to baseline as renal function will affect his Eliquis dosing. (3) Pulmonary hypertension: This was noted on echo and is likely secondary to heart failure. (4) Hypertension: Blood pressure is well controlled. He can be discharged from a cardiology perspective, but recommend close follow- up within 1 week with a provider near his home. Recommend close follow-up of renal function, as noted above. Cardiology will sign off at this time. Admission and Anticipated Discharge Date Admission Date: March 23, 2020 Subjective He has been feeling well. He has been up ambulating the hallway with no significant shortness of breath. He denies shortness of breath at rest or orthopnea. He has not noted any lower extremity edema. He denies chest pain, palpitations, or near syncope. Physical Exam Physical Exam: Constitutional: Alert, oriented, in no acute distress HEENT: Head is atraumatic and normocephalic. EOMs intact. Sclera non-icteric. Face is symmetric. No perioral cyanosis. Mucous membranes moist Neck: Supple, no JVD Pulmonary: Normal respiratory effort, clear to auscultation throughout Cardiac: Irregularly irregular, normal S1 and S2, no gallops, no rubs, 2/6 systolic murmur Extremities: No edema. No clubbing or cyanosis. Pulses 2+ and symmetric Abdomen: Normal bowel sounds, soft, non-tender, no abdominal masses palpated Skin: Normal skin color, turgor, and pigmentation. No rash or skin lesions Neurological: Oriented to person, place, and time Results & Data ([facility]) Vital Signs (Past 12 Hours) Vital Signs Temp Pulse Pulse Resp BP Pulse Ox 03/29/20 07:09 97.7 F 61 20 123/75 90 03/29/20 07:07 59 L 03/29/20 04:31 97.7 F 86 18 131/64 91 03/29/20 01:22 54 L 03/28/20 23:42 98.6 F 58 L 18 121/77 92 Laboratory Results Laboratory Results WBC 6.27 K/uL (4.8-10.8) 03/26/20 07:34 RBC 4.05 M/uL (4.7-6.1) L 03/26/20 07:34 Hgb 12.6 g/dL (14.0-18.0) L 03/26/20 07:34 Hct 39.1 % (42-52) L 03/26/20 07:34 MCV 96.5 fL (80-100) 03/26/20 07:34 MCH 31.1 pg (25-34) 03/26/20 07:34 MCHC 32.2 g/dL (32-36) 03/26/20 07:34 RDW Std Deviation 52.5 fL (36.4-46.3) H 03/26/20 07:34 RDW Coeff of Hayden 14.9 % (11.5-14.5) H 03/26/20 07:34 Plt Count 163 K/uL (130-400) 03/26/20 07:34 MPV 11.5 fL (7.4-10.4) H 03/26/20 07:34 Immature Gran % (Auto) 0.2 % 03/23/20 10:37 Neut % (Auto) 78.2 % 03/23/20 10:37 Lymph % (Auto) 12.6 % 03/23/20 10:37 [place] % (Auto) 7.7 % 03/23/20 10:37 Eos % (Auto) 1.3 % 03/23/20 10:37 Baso % (Auto) 0.0 % 03/23/20 10:37 Neut # (Auto) 4.80 K/uL (1.4-6.5) 03/23/20 10:37 Lymph # (Auto) 0.77 K/uL (1.2-3.4) L 03/23/20 10:37 [place] # (Auto) 0.47 K/uL (0.11-0.59) 03/23/20 10:37 Eos # (Auto) 0.08 K/uL (0-0.5) 03/23/20 10:37 Baso # (Auto) 0.00 K/uL (0-0.2) 03/23/20 10:37 Immature Gran # (Auto) 0.01 K/uL (0.00-0.02) 03/23/20 10:37 PT 11.0 Seconds (9.0-12.0) 03/23/20 10:37 INR 1.0 (0.9-1.1) 03/23/20 10:37 Sodium 140 mmol/L (136-145) 03/29/20 05:30 Potassium 4.0 mmol/L (3.5-5.1) 03/29/20 05:30 Chloride 107 mmol/L (98-107) 03/29/20 05:30 Carbon Dioxide 30 mmol/L (21-32) 03/29/20 05:30 Anion Gap 4.0 (3-11) 03/29/20 05:30 BUN 31 mg/dl (7-18) H 03/29/20 05:30 Creatinine 1.50 mg/dl (0.6-1.4) H D 03/29/20 05:30 Est Cr Clr Drug Dosing 49.8 ml/min 03/29/20 05:30 Est GFR ( Amer) 50.2 03/29/20 05:30 Est GFR (Non-Af Amer) 43.3 03/29/20 05:30 BUN/Creatinine Ratio 20.4 (10-20) H 03/29/20 05:30 Glucose 100 mg/dl (70-99) H 03/29/20 05:30 Calcium 8.9 mg/dl (8.5-10.1) 03/29/20 05:30 Magnesium 1.8 mg/dl (1.8-2.4) 03/23/20 10:37 Total Bilirubin 0.7 mg/dl (0.2-1) 03/26/20 07:34 AST 13 U/L (15-37) L 03/26/20 07:34 ALT 26 U/L (12-78) 03/26/20 07:34 Alkaline Phosphatase 72 U/L (45-117) 03/26/20 07:34 Troponin I < 0.015 ng/ml (0-0.045) 03/24/20 02:48 NT-Pro-B Natriuret Pep 1634 pg/ml (0-1800) 03/23/20 10:37 Total Protein 6.6 gm/dl (6.4-8.2) 03/26/20 07:34 Albumin 3.2 gm/dl (3.4-5.0) L 03/26/20 07:34 Globulin 3.4 gm/dl (2.5-4.0) 03/26/20 07:34 Albumin/Globulin Ratio 0.9 (0.9-2) 03/26/20 07:34 Triglycerides 94 mg/dl (0-150) 03/24/20 06:01 Cholesterol 148 mg/dl (0-200) 03/24/20 06:01 LDL Cholesterol, Calc 85 mg/dl 03/24/20 06:01 VLDL Cholesterol, Calc 19 mg/dl 03/24/20 06:01 HDL Cholesterol 44 mg/dl 03/24/20 06:01 Cholesterol/HDL Ratio 3 03/24/20 06:01 Lipase 161 U/L (73-393) 03/23/20 10:37 COVID-19 Eval Order CovFluRsv at [facility] 03/23/20 11:10 SARS-CoV-2 (PCR) NEGATIVE (Negative) 03/23/20 11:10 Influenza Type A (PCR) Negative (Neg) 03/23/20 11:10 Influenza Type B (PCR) Negative (Neg) 03/23/20 11:10 RSV (RT-PCR) Negative (Neg) 03/23/20 11:10 Diagnostic Findings Telemetry: Atrial fibrillation in the 50s-60s. PG Care Time/CCT Total # of Minutes Spent Total Time Spent with Patient: Total time spent is greater than 50% in coordination of care (as documented) at patient's floor/unit and/or counseling patient: Coding Level of Care Code 83438 Subseq Hosp Care Lvl 2 Diagnoses Acute on chronic diastolic (congestive) heart failure I50.33 Atrial fibrillation, permanent I48.21 Pulmonary hypertension I27.20 Hypertension I10
--- NOTE | 2020-03-29 17:23 | Discharge Summary ---
Date of Service March 29, 2020 Admission HPI Per Admitting Provider This is an 79 F with PMHx of chronic diastolic CHF, HTN, afib on Eliquis, GERD, schizoaffective disorder, and depression who presents with acute shortness of breath to the ER. He reports that he developed shortness of breath yesterday and was unable to lie flat to sleep, therefore presented to the hospital earlier this morning as he felt terrible. Patient typically lives near [place]. 2 days ago he was driv ing a vehicle here as a favor for a friend and was planning on taking the bus home yesterday however missed the bus and then his respiratory symptoms worsened. He notes worsening shortness of breath on exertion with ADLs, worsening leg swelling over the past few days, and feels bloated in his abdomen. He does not eat foods with large amounts of salt, and does not drink much fluids because of his heart. He reports that his dry weight is around 245 to 247 pounds, but does not weigh himself daily therefore cannot determine if his weight has increased recently. He did not take any of his medications this morning which included Imdur, diltiazem, losartan, and Eliquis. Patient also notes that he stopped taking his psychiatric medications about 4 to 5 days ago because he did not feel that his mood was improving anymore from them. He takes Seroquel 400 mg at night and Effexor 225 mg in the morning. It appears that this medication was recently increased in January. He admits to having auditory hallucinations currently. The voice that he hears typically is a male, threatening currently telling him to harm himself. He denies any suicidal or homicidal ideations. The voice has become more prominent since he stopped his medications. He admits to anhedonia, reports that he does not have any family who speaks to him (he does have a sister but they are estranged), no friends, and lives alone. 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 He is a remote smoker over 30 years ago, and does not drink alcohol. He follows with a psychiatric clinic in [facility]. His PCP is a Dr. Quintero, follows with cardiology and psychiatry with Is[facility] at [facility]. Family history: Patient's father at age 59 due to colon cancer Mother left his family when he was 8 years old and cannot provide information regarding her medical history Sister, unknown as they are estranged. Social history: See above. Principal Diagnosis acute on chronic diastolic chf Discharge Exam gen aaox3 pleasant nad heent nc at mmm lungs cta b/l no rrw good effort breathing comfortably on room air no focal neuro deficits Discharge Data Allergies Allergy/AdvReac Type Severity Reaction Status Date / Time amoxicillin Allergy Mild RASH Verified 01/08/19 04:05 clindamycin Allergy Mild RASH Verified 01/08/19 04:05 latex Allergy Mild RASH Verified 01/08/19 04:05 aspirin Allergy Unknown Unknown Verified 01/08/19 04:05 Penicillins Allergy Unknown RASH FROM Verified 01/08/19 04:05 AMOXICILLIN, BUT PCN IS OK haloperidol AdvReac Intermediate PT STATES Verified 01/08/19 04:05 HE LOCKS UP metronidazole AdvReac Mild ABDOM PAIN Verified 01/08/19 04:05 &CRAMPS olanzapine AdvReac Mild PANCREATITI Verified 01/08/19 04:05 S lithium AdvReac Unknown SENSITIVE Verified 01/08/19 04:05 TO IT BECOMES TOXIC Consultations 03/23/20 12:43 ED Decision to Admit Stat 03/23/20 17:32 Consult Cardiology Routine Consult Case Management - Discharge Planning Routine Consult Psychiatry Routine Hospital Course (1) Acute on chronic diastolic (congestive) heart failure: (1) Acute on chronic diastolic (congestive) heart failure: Jeronimo Nguyen is an 79 F with PMHx of chronic diastolic CHF, HTN, afib on Eliquis, GERD, schizoaffective disorder, and depression who presented with acute shortness of breath. Likely CHF exacerbation, currently diuresing. Oxygenating well on nasal cannula. Psychiatric concerns but has been better controlled since restarting his home meds. Diastolic CHF, acute on chronic: - Serial troponins negative - BNP borderline elevated - CXR with pulmonary edema - Echo: Normal LV size & fxn (EF 65-70%). Moderate concentric LVH. Severe left atrial dilation. Mild pulmonary HTN (RVSP 46mmHg). - Cardiology consult: - He appears hypervolemic. Continue Lasix 40 mg IV twice daily. Goal is to diurese at least 1 liter negative fluid balance this 24 hours. If not achieving that goal, please increase Lasix to 80 mg IV twice daily. Low-sodium diet, less than 2000 mg daily. Daily weights. Strict I&Os. - 03/25/20: per cardiology, inadequate 24 hr diuresis. increased to 80 mg IV BID - added 5mg PO torsemide x1 03/26/20 because uop inadequate w/ 80 lasix IV BID. ordered bladder scan in PM to check for urinary retention. on physical exam, patient's abdomen does appear distended 03/27/20 provided AM dose of torsemide 5mg PO. - 03/26/20 AM chart check: inadequate UOP. 1L in 825 out 24 hrs. - 03/26/20 PM chart check: inadequate [id number] (11 hours) 03/27/20 505 in. 800 out. net -295ml. - 03/27/20 good UOP. 24 hr overnight checked at 7am. 845 in 2300 out. net - 1455mL. 7am-530pm 790in 1500 out. net -710. cumulative since 03/23/20: 4.1L in. 7.6L out, net -3.5L - dyspnea w/ slight improvement 03/27/20 s/p diuresis. this AM, patient saturated at 95% on room air while being examined during rounds. continue diuresis and attempt to wean off O2 tomorrow. 03/28/20 CO2 3H, stable, supports contraction alkalosis as proxy of diuresis working. BUN 22->25->29. Cr .99->1.10->1.17. 24 hour I/O checked at 0700AM 1L in, 2L out. cumulative 4.3 in, 8.1 out - diuresis went well. patient's tolerated ambulation on room air. patient is likely near euvolemia. plan is dispo home tomorrow. lasix 40 mg PO BID outpatient regimen recommended by cardiology. called and made phone appointment (per policy because recent hospital admission) at [facility] ([place]) at 11AM. Patient will be called at his cell at [phone]. 03/29/20 - breathing room air comfortably with clear lungs, cr sl elevated suggesting adequate diuresis Acute hypoxic respiratory failure: - intiallySpO2 of 84% on room air on arrival, tachypnea, diaphoresis - Sec to CHF exacerbation - Improved on 2 L nasal cannula with IV Lasix - will d/c iv lasix 03/28/20 pm and start PO lasix 40 mg bid upon dispo home Hypertension: - Significantly hypertensive on admission, SBP low 200s at bedside over 100 - Had missed medications but normotensive since continuing home meds - Continue Diltiazem, Imdur, Losartan - consider outpatient sleep study Chronic atrial fibrillation: - Initial EKG w/ afib, rate controlled - Echo as above -Continue Eliquis 5 mg twice daily, rate controlled with diltiazem - Cardiology consult: - Asymptomatic. Heart rate well controlled. Continue diltiazem, his chronic rate-controlling medication. Continue anticoagulation for stroke risk reduction. Schizoaffective disorder: - Reported threatening auditory hallucinations on admission - Denied SI/HI - Worsening anhedonia, lack of family and friends, appears to have lack of support system in place currently - Resumed home Effexor and Seroquel - Psych consult: - suspect sleep issues are more related to cardiorespiratory status, apnea, etc than due to his primary psych condition and would avoid sedating agents at this time on top of the Seroquel. I would not change his psychiatric medications in this acute setting. - will follow his mental status as historically has intermittent SI, he is lonely where he lives and acute inpatient will not address that. Please notify service before discharging patient as chronic high risk patient. Depression: -As above GERD (gastroesophageal reflux disease): -Continue omeprazole 20 mg twice daily stable for home, close PCP f/u arranged, should have BMP next week as well Total Time Total Time Spent Total Time Spent (In Minutes): <30 Discharge Plan Discharge Items Patient Disposition: Home - Self-Care Reason For Visit: CHF EXACERBATION Discharge Diagnosis: CHF exacerbation Activity: Per Instructions section Non-emergency contact: Primary Care Provider Call non-emergency contact if: you have any medication questions, your symptoms worsen and you have a fever Follow-up/Referrals: PCP,NO [Primary Care Provider] - Diet: Low Sodium (2gm) Fluids: 1500ml (6 cups) Addtl Attending Provider Instructions: You were admitted to [facility] for worsening shortness of breath and weight gain. You were given IV diuretics to help you pass more fluid that was making it harder for you to breathe. - I have made a phone appointment for you w/ [facility], your PCP, for Wednesday04/01/20 at 1100AM. You will receive a call from their office. - Recheck a basic metabolic panel in 1 week to check your electrolytes and kidney function. - Take lasix 40 mg twice a day instead of once a day. - take 2 packets of potassium powder a day - limit salt intake to <2 grams a day -limit fluid intake to <1.5L/day - check your daily weights - follow up with psychiatry The additional information below is included for your primary care provider to review. This is an 79 F with PMHx of chronic diastolic CHF, HTN, afib on Eliquis, GERD, schizoaffective disorder, and depression who presented with acute shortness of breath. Likely CHF exacerbation, diuresed w/ IV lasix (increased to 80 mg IV BID) + 5 mg PO torsemide. After diuresis, tolerated ambulation w/ reasonable saturations in the low-mid 90s. Diastolic CHF, acute on chronic: - Serial troponins negative - BNP borderline elevated - CXR with pulmonary edema - Echo: Normal LV size & fxn (EF 65-70%). Moderate concentric LVH. Severe left atrial dilation. Mild pulmonary HTN (RVSP 46mmHg). - Low-sodium diet (<2g daily) with fluid restriction (<1.5L daily) - cardiology consulted. recommendations above - euvolemic at time of discharge - regimen as per above. PO lasix 40mg BID Acute hypoxic respiratory failure 2/2 CHF exacerbation - SaO2 of 84% on room air on arrival, tachypnea, diaphoresis - Sec to CHF exacerbation - Improved on 2 L nasal cannula with IV Lasix, weaned off supplemental oxygen prior to discharge Hypertension: - Continue Diltiazem, Imdur, Losartan Chronic atrial fibrillation: -Continue Eliquis 5 mg twice daily, rate controlled with diltiazem Schizoaffective disorder: - Reported threatening auditory hallucinations on admission - Denied SI/HI - lack of support system in place currently - did not change psychiatric medication regimen during this admission - avoid sedating agents on top of the Seroquel code status: full Pending Studies at Discharge: No Stand-Alone Forms: [facility], Sm[facility] Cess[facility] Medications and DC Order Prescriptions: New potassium chloride 20 mEq packet 20 meq PO BID 30 Days Qty: 60 RF: 0 furosemide 40 mg tablet 40 mg PO BID 30 Days Qty: 60 RF: 0 Continued losartan 50 mg tablet 50 mg PO DAILY RF: 0 cyanocobalamin (vitamin B-12) 1,000 mcg tablet 1,000 mcg PO DAILY RF: 0 diltiazem HCl 360 mg capsule,extended release 24hr 360 mg PO DAILY RF: 0 Eliquis 5 mg tablet 5 mg PO BID RF: 0 omeprazole 20 mg capsule,delayed release(DR/EC) 20 mg PO BID RF: 0 isosorbide mononitrate 30 mg tablet extended release 24 hr 90 mg PO DAILY RF: 0 venlafaxine 75 mg capsule,extended release 24hr 225 mg PO QAM RF: 0 quetiapine 400 mg tablet 400 mg PO DAILY RF: 0 Discharge Orders: Discharge Order (Routine); Ordered 03/29/20 Ordered By: Gian Slade/Other Patient Handouts: Losing Weight for Heart Health, 5 Steps for Eating Healthier, Weight Management: Healthy Eating Admission Data Admit Date/Time: 03/23/20 14:24 Attending Provider: Alexander Brown Admit Provider: Damaris Pardo Primary Care Provider: PCP,NO Other Providers: Damaris Pardo ; Aleksey Tuttle ; Sakshi Pratt ; Gian Rowell ; Neda Wolfe Other Interventions: Discharge Summary Assessment (RN) Last Done: 03/29/20 11:29 PSY Interdisciplinary Discharge Planning Last Done: 03/24/20 14:57 Coding Level of Care Code D/C Day Management <30 mins Diagnoses Acute on chronic diastolic (congestive) heart failure I50.33
== END 2020-03-29 12:52 | disposition home or self-care (01) | DRG 291 ==
LOC: ED 08:52 → 2N 14:24 → SUATTDRO 14:24 → 2N 16:56

== ENCOUNTER 2020-08-23 21:20 | Inpatient (IN) ==
[2020-08-23 22:32] LABS: Basophils # (auto) 0.02 K/uL (0-0.2); Basophils % (auto) 0.3 %; Eosinophils # (auto) 0.14 K/uL (0-0.5); Hematocrit (blood only) 39.4 % (42-52); Immature Granulocytes # (auto) 0.02 K/uL (0.00-0.02); Immature Granulocytes % (auto) 0.3 %; Lymphocytes # (auto) 1.77 K/uL (1.2-3.4); Lymphocytes % (auto) 25.3 %; Mean Corpuscular Hemoglobin 31.7 pg (25-34); Mean Corpuscular Hgb Conc 35.5 g/dL (32-36); Mean Corpuscular Volume 89.1 fL (80-100); Mean Platelet Volume 10.8 fL (7.4-10.4); Monocytes # (auto) 0.42 K/uL (0.11-0.59); Neutrophils # (auto) 4.62 K/uL (1.4-6.5); Neutrophils % (auto) 66.1 %; Platelet Count 151 K/uL (130-400); RDW Coefficient of Variation 13.5 % (11.5-14.5); RDW Standard Deviation 43.8 fL (36.4-46.3); Red Blood Count 4.42 M/uL (4.7-6.1); White Blood Count 6.99 K/uL (4.8-10.8)
--- NOTE | 2020-08-23 22:37 | XRay Report ---
XR chest 1V portable HISTORY: vomiting COMPARISON: Chest 03/23/2020. FINDINGS: Rotated study. No pneumothorax. The cardiac silhouette remains mildly enlarged. Old, healed bilateral rib fractures are again noted. There is diffuse interstitial/vascular thickening likely re presenting mild initial pulmonary edema. This is similar to the prior study. A few left basilar densi ties favor subsegmental atelectasis. No definite pleural effusions. IMPRESSION: Cardiomegaly with mild interstitial pulmonary edema. This is similar to the prior study. ACT 112: Negative or not required by law. Electronically signed by: Juan Fitzgerald M.D. 08/23/2020 10:36 PM
[2020-08-23 22:48] LABS: Alanine Aminotransferase 19 U/L (12-78); Albumin Level 3.3 gm/dl (3.4-5.0); Aspartate Aminotransferase 14 U/L (15-37); BUN Creatinine Ratio 14.8 (10-20); Blood Urea Nitrogen 12 mg/dl (7-18); Carbon Dioxide 25 mmol/L (21-32); Chloride 99 mmol/L (98-107); Creatinine Clr Calc Pharmacy 92.6 ml/min; Est GFR (African American) 95.8 ml/min; Est GFR (Non-African American) 82.7 ml/min; Glucose 107 mg/dl (70-99); Magnesium 1.7 mg/dl (1.8-2.4); Potassium 3.2 mmol/L (3.5-5.1); Sodium 135 mmol/L (136-145)
[2020-08-23 22:58] LABS: Alkaline Phosphatase 88 U/L (45-117); Bilirubin,Total 0.5 mg/dl (0.2-1); Globulin 3.3 gm/dl (2.5-4.0); Total Protein 6.6 gm/dl (6.4-8.2); Troponin I < 0.015 ng/ml (0-0.045)
[2020-08-23] MEDS ORDERED: ONDANSETRON INJ 2 MG/ML 2 ML VIAL IV STA (23:04)
[2020-08-23 23:07] LABS: Acetaminophen < 2 ug/ml (10-30); Salicylate < 1.7 mg/dl (2.8-20)
--- NOTE | 2020-08-24 01:53 | Emergency Department Note ---
Impression & Plan Mood disorder, Alcohol intoxication, Vomiting, Ileus, Hypokalemia ED Provider Note INFORMANT: Patient, EMS ED PROVIDER(S): Craig Ramirez MD CHIEF COMPLAINT: Mental health evaluation PLAN: Disposition: Admitted Condition: Good Outpatient prescription management: none Referral: None MEDICAL DECISION MAKING: Patient presented with complaints of suicidality and also vomiting. He was intoxicated. His blood alcohol level was nearly 200 mg/dL. The patient's CBC was unremarkable. His chemistry panel revealed hypokalemia. This was repleted. The patient was treated with Zofran. His ECG showed atrial fibrillation. He underwent CT imaging of the head as well as the abdomen and pelvis. Head CT was negative. His CT scan of the abdomen pelvis revealed appeared to be an ileus. Radiology felt it was less likely to be an obstruction. The patient's urinalysis was unremarkable. They did note his bladder seemed distended however he did urinate significantly right after the CT. The patient was observed to allow his alcohol intoxication to clear and evaluate this issue and di fferentiate between a psychiatric or medical cause. After his intoxication was cleared the patient was still noting abdominal discomfort and nausea. He was given additional Zofran. This is concerning given the CT imaging. In light of his hypokalemia and CT findings the patient will need medical treatment and then psychiatric consultation. Consultation was made with Dr. Fernandez Gregory of the [facility] service. Patient was evaluated in the ER for further management. Triage Nursing notes reviewed and agree them. Vital Signs: reviewed and remarkable for no significant abnormalities Differential diagnosis: Infection, dehydration, metabolic abnormality, hypo/hyperglycemia, electrolyte disturbance, anemia, hypoxia, cardiac sources, intracerebral event, toxicologic, neurologic, psychiatric, as well as other pathologies. Diagnostics interpreted by me: ECG: Twelve-lead ECG reveals atrial fibrillation at [address] elevation or depression. No PACs or PVCs. Normal axis and intervals. Cardiac Monitoring: Cardiac monitoring ordered by me: The patient was placed on continuous cardiac monitoring and observed. It revealed a normal sinus rhythm at 80 beats per minute without ectopy or evidence of dysrhythmia. Imaging studies: Chest x-ray. Findings: A chest x-ray was performed and revealed no pneumothorax, effusion, infiltrate, pulmonary edema, free air under the diaphragm, or wide mediastinum. Impression: No acute disease. Head CT: A noncontrast CT scan of the head was performed and was negative for tumor, fracture, intracranial hemorrhage, or other acute pathology. CT scan of the abdomen pelvis reveals mild fluid filled loops of bowel and likely ileus radiology noted less likely obstruction. Moderate distention of the bladder. Of note patient urinated all over the floor after CT imaging after refusing a urinal for specimen from the nurse.. HPI: The patient is a 79 year old male who presents to the Emergency Room with complaints of mental health evaluation. This started tonight while at the local truck stop. Patient states he is from [facility]. He feels like he is losing his mind. He did admit to drinking alcohol. EMS was summoned for a lift assist. He was helped up. He denied any injury from his fall. He did vomit twice. He stated that he did not want to live anymore. He denied any recent medical illness. The patient has was given no medication for relieving factors. Current pain is rated as 0/10. Pt denies LOC, headache, fevers, chills, diaphoresis, visual changes, neck pain, chest pain, breathing difficulties, extremity pain, abdominal pain, back pain, melena, hematochezia, urinary symptoms, numbness, weakness, or other complaints. ROS: See above HPI for pertinent positives & negatives. A total of 10 systems reviewed and were otherwise negative. PAST MEDICAL HISTORY:See Below , A. fib, schizoaffective disorder PAST SURGICAL HISTORY:See Below, FAMILY HISTORY:See Below SOCIAL HISTORY:See Below, positive alcohol HOME MEDICATIONS:See Below ALLERGIES:See Below VITALS:See Below PHYSICAL EXAMINATION: GENERAL: Awake, intoxicated-appearing, in no distress HENT: Normocephalic, atraumatic. Oropharynx unremarkable. EYES: Normal conjunctiva. Sclera non-icteric. NECK: Inspection normal. Non-tender. Supple. No nuchal rigidity. FROM. No masses. RESPIRATORY: Clear to auscultation. No wheezes. No rales. Normal respiratory effort. CARDIAC: Normal rate. Normal rhythm. No murmurs. No rubs. Extremities warm and well perfused. Pulses equal. No JVD. GI: Soft, obese, non-distended. No tenderness to palpation. No rebound or guarding. No masses. RECTAL: Deferred. MUSCULOSKELETAL: Atraumatic. Chest examination reveals no tenderness. The back is symmetrical on inspection without obvious abnormality. There is no CVA tenderness to palpation. No joint edema. LOWER EXTREMITIES: Calves are equal size bilaterally and non-tender. 1+ edema. No discoloration. NEURO: Normal sensorium. No sensory or motor deficits noted. SKIN: No rash or jaundice noted. PSYCH: Vague SI. Poor eye contact. Depressed mood. Flat affect. Craig Ramirez MD Past Med/Surg History Medical History (Updated 08/24/20 @ 02:59 by Craig Ramirez MD) Atrial fibrillation, permanent Chronic diastolic CHF (congestive heart failure) Depression GERD (gastroesophageal reflux disease) Hypertension Loose stools Obesity Schizoaffective disorder Schizophrenia Suicidal ideation Surgical History No pertinent past surgical history Family History Father Cancer colon Other Family history non-contributory Social History Smoking Status: Never smoker Tobacco Type: Cigarettes Age Quit Using Tobacco: 49; packs per day: 1; Years Smoked: 30; Second Hand Exposure: No; Hx Alcohol Use: Yes Alcohol type: beer Hx Substance Use: No Preferred Language: Venezuelan Communication Ability: Effective Stone Splitter Required: No Beliefs That Will Affect Care: None marital status: Single Current Living Situation: Alone Feels Safe at Home: Yes Assistive Devices: None Allergies Allergies Allergy/AdvReac Type Severity Reaction Status Date / Time amoxicillin Allergy Mild RASH Verified 08/23/20 22:38 clindamycin Allergy Mild RASH Verified 08/23/20 22:38 latex Allergy Mild RASH Verified 08/23/20 22:38 aspirin Allergy Unknown Unknown Verified 08/23/20 22:38 Penicillins Allergy Unknown RASH FROM Verified 08/23/20 22:38 AMOXICILLIN, BUT PCN IS OK haloperidol AdvReac Intermediate PT STATES Verified 08/23/20 22:38 HE LOCKS UP metronidazole AdvReac Mild ABDOM PAIN Verified 08/23/20 22:38 &CRAMPS olanzapine AdvReac Mild PANCREATITI Verified 08/23/20 22:38 S lithium AdvReac Unknown SENSITIVE Verified 08/23/20 22:38 TO IT BECOMES TOXIC Home Meds Home Medications Medication Instructions Recorded Confirmed quetiapine 400 mg PO ONCE PM 01/08/19 08/23/20 Eliquis 5 mg PO BID 03/23/20 08/23/20 cyanocobalamin (vitamin B-12) 1,000 mcg PO DAILY 03/23/20 08/23/20 diltiazem HCl 360 mg PO DAILY 03/23/20 08/23/20 isosorbide mononitrate 90 mg PO DAILY 03/23/20 08/23/20 losartan 50 mg PO QAM 03/23/20 08/23/20 omeprazole 20 mg PO BID 03/23/20 08/23/20 venlafaxine 225 mg PO QAM 03/23/20 08/23/20 albuterol sulfate 90 mcg INHALATION Q46H 08/23/20 08/23/20 atorvastatin 40 mg PO DAILY 08/23/20 08/23/20 clonidine HCl 0.1 mg PO BID 08/23/20 08/23/20 diltiazem HCl [Cartia XT] 300 mg PO DAILY 08/23/20 08/23/20 docusate sodium [DOK] 100 mg PO HS 08/23/20 08/23/20 loratadine 10 mg PO DAILY 08/23/20 08/23/20 multivitamin,tx-minerals [Thera M] 1 tab PO DAILY 08/23/20 08/23/20 pantoprazole 40 mg PO DAILY 08/23/20 08/23/20 sennosides-docusate sodium 2 tab-cap PO BID 08/23/20 08/23/20 [Stimulant Laxative Plus] tamsulosin 0.4 mg PO DAILY 08/23/20 08/23/20 Results & Data (ED) Vital Signs Vital Signs - 24 hr 08/23/20 21:43 08/23/20 23:02 08/24/20 01:00 Temperature 37.2 C Temperature Source Oral Pulse Rate 83 80 Pulse Rate [Right Finger] 83 72 Pulse Rhythm [Right Finger] Regular Pulse Strength [Right Finger] Normal Respiratory Rate 20 16 14 Respiratory Effort / Characteristics Non-Labored Spontaneous Non-Labored Spontaneous Respiratory Depth Normal Normal Respiratory Pattern Regular Blood Pressure 141/77 H 130/61 Blood Pressure [Right Arm] 141/77 H 144/80 H Blood Pressure Mean 98 84 Blood Pressure Mean [Right Arm] 98 101 Blood Pressure Position [Right Arm] Lying Pulse Oximetry 93 92 95 Oxygen Delivery Method Room Air Room Air Sepsis Recent Fever Within 48 Hours No Sepsis New/Unexplained Change in Mental Status No Sepsis Action Taken by Nursing No Action Required Laboratory Data Result diagrams: 08/23/20 22:13 08/23/20 22:13 Lab Results 08/23/20 08/23/20 08/23/20 Range/Units 22:13 22:13 22:13 WBC 6.99 (4.8-10.8) K/uL RBC 4.42 L (4.7-6.1) M/uL Hgb 14.0 (14.0-18.0) g/dL Hct 39.4 L (42-52) % MCV 89.1 (80-100) fL MCH 31.7 (25-34) pg MCHC 35.5 (32-36) g/dL RDW Std Deviation 43.8 (36.4-46.3) fL RDW Coeff of [place] 13.5 (11.5-14.5) % Plt Count 151 (130-400) K/uL MPV 10.8 H (7.4-10.4) fL Immature Gran % (Auto) 0.3 % Neut % (Auto) 66.1 % Lymph % (Auto) 25.3 % [place] % (Auto) 6.0 % Eos % (Auto) 2.0 % Baso % (Auto) 0.3 % Neut # (Auto) 4.62 (1.4-6.5) K/uL Lymph # (Auto) 1.77 (1.2-3.4) K/uL [place] # (Auto) 0.42 (0.11-0.59) K/uL Eos # (Auto) 0.14 (0-0.5) K/uL Baso # (Auto) 0.02 (0-0.2) K/uL Immature Gran # (Auto) 0.02 (0.00-0.02) K/uL Sodium 135 L (136-145) mmol/L Potassium 3.2 L (3.5-5.1) mmol/L Chloride 99 (98-107) mmol/L Carbon Dioxide 25 (21-32) mmol/L Anion Gap 11.0 (3-11) BUN 12 (7-18) mg/dl Creatinine 0.84 (0.6-1.4) mg/dl Est Cr Clr Drug Dosing 92.6 ml/min Est GFR ( Amer) 95.8 ml/min Est GFR (Non-Af Amer) 82.7 ml/min BUN/Creatinine Ratio 14.8 (10-20) Glucose 107 H (70-99) mg/dl Calcium 8.0 L (8.5-10.1) mg/dl Magnesium 1.7 L (1.8-2.4) mg/dl Total Bilirubin 0.5 (0.2-1) mg/dl AST 14 L (15-37) U/L ALT 19 (12-78) U/L Alkaline Phosphatase 88 (45-117) U/L Troponin I < 0.015 (0-0.045) ng/ml Total Protein 6.6 (6.4-8.2) gm/dl Albumin 3.3 L (3.4-5.0) gm/dl Globulin 3.3 (2.5-4.0) gm/dl Albumin/Globulin Ratio 1.0 (0.9-2) TSH 4.490 (0.300-4.500) uIu/ml Urine Color Urine Appearance (Clear) Urine pH (4.5-7.5) Ur Specific [place] (1.000-1.030) Urine Protein (Negative) Urine Glucose (UA) (Negative) Urine Ketones (Negative) Urine Blood (Negative) Urine Nitrite (Negative) Urine Bilirubin (Negative) Urine Urobilinogen (Negative) Ur Leukocyte Esterase (Negative) Salicylates < 1.7 L (2.8-20) mg/dl Urine Opiates Screen (Neg) Ur Methadone, Qual (Neg) Acetaminophen < 2 L (10-30) ug/ml Urine Barbiturates (Neg) Ur Phencyclidine (PCP) (Neg) U Amphetamin/Meth Scrn (Neg) MDMA (Ecstasy) Screen (Neg) U Benzodiazepines Scrn (Neg) Ur Cocaine Metabolite (Neg) U Marijuana (THC) Screen (Neg) Ethyl Alcohol mg/dL (0-3) mg/dl 08/23/20 08/24/20 08/24/20 Range/Units 22:13 02:05 02:05 WBC (4.8-10.8) K/uL RBC (4.7-6.1) M/uL Hgb (14.0-18.0) g/dL Hct (42-52) % MCV (80-100) fL MCH (25-34) pg MCHC (32-36) g/dL RDW Std Deviation (36.4-46.3) fL RDW Coeff of [place] (11.5-14.5) % Plt Count (130-400) K/uL MPV (7.4-10.4) fL Immature Gran % (Auto) % Neut % (Auto) % Lymph % (Auto) % [place] % (Auto) % Eos % (Auto) % Baso % (Auto) % Neut # (Auto) (1.4-6.5) K/uL Lymph # (Auto) (1.2-3.4) K/uL [place] # (Auto) (0.11-0.59) K/uL Eos # (Auto) (0-0.5) K/uL Baso # (Auto) (0-0.2) K/uL Immature Gran # (Auto) (0.00-0.02) K/uL Sodium (136-145) mmol/L Potassium (3.5-5.1) mmol/L Chloride (98-107) mmol/L Carbon Dioxide (21-32) mmol/L Anion Gap (3-11) BUN (7-18) mg/dl Creatinine (0.6-1.4) mg/dl Est Cr Clr Drug Dosing ml/min Est GFR ( Amer) ml/min Est GFR (Non-Af Amer) ml/min BUN/Creatinine Ratio (10-20) Glucose (70-99) mg/dl Calcium (8.5-10.1) mg/dl Magnesium (1.8-2.4) mg/dl Total Bilirubin (0.2-1) mg/dl AST (15-37) U/L ALT (12-78) U/L Alkaline Phosphatase (45-117) U/L Troponin I (0-0.045) ng/ml Total Protein (6.4-8.2) gm/dl Albumin (3.4-5.0) gm/dl Globulin (2.5-4.0) gm/dl Albumin/Globulin Ratio (0.9-2) TSH (0.300-4.500) uIu/ml Urine Color Yellow Urine Appearance Clear (Clear) Urine pH 5.5 (4.5-7.5) Ur Specific [place] 1.008 (1.000-1.030) Urine Protein Negative (Negative) Urine Glucose (UA) Negative (Negative) Urine Ketones Negative (Negative) Urine Blood Negative (Negative) Urine Nitrite Negative (Negative) Urine Bilirubin Negative (Negative) Urine Urobilinogen Negative (Negative) Ur Leukocyte Esterase Negative (Negative) Salicylates (2.8-20) mg/dl Urine Opiates Screen Neg (Neg) Ur Methadone, Qual Neg (Neg) Acetaminophen (10-30) ug/ml Urine Barbiturates Neg (Neg) Ur Phencyclidine (PCP) Neg (Neg) U Amphetamin/Meth Scrn Neg (Neg) MDMA (Ecstasy) Screen Neg (Neg) U Benzodiazepines Scrn Neg (Neg) Ur Cocaine Metabolite Neg (Neg) U Marijuana (THC) Screen Neg (Neg) Ethyl Alcohol mg/dL 197.3 H (0-3) mg/dl Administered Medications Discontinued Medications Ondansetron HCl (Ondansetron Inj 2 Mg/Ml 2 Ml Vial) 4 mg IV NOW STA Stop: 08/23/20 23:05 Last Admin: 08/23/20 23:09 Dose: 4 mg Documented by: [id number] Imaging Data Radiologist's Impression: Chest X-Ray 08/23/20 22:15 XR chest 1V portable HISTORY: vomiting COMPARISON: Chest 03/23/2020. FINDINGS: Rotated study. No pneumothorax. The cardiac silhouette remains mildly enlarged. Old, healed bilateral rib fractures are again noted. There is diffuse interstitial/vascular thickening likely representing mild initial pulmonary edema. This is similar to the prior study. A few left basilar densities favor subsegmental atelectasis. No definite pleural effusions. IMPRESSION: Cardiomegaly with mild interstitial pulmonary edema. This is similar to the prior study. ACT 112: Negative or not required by law. Electronically signed by: Juan Fitzgerald M.D. 08/23/2020 10:36 PM Discharge Plan Visit Data Chief Complaint: Mental Health Evaluation Stated Complaint: INTOX ED Provider: Craig Ramirez Discharge Problem: Mood disorder, Alcohol intoxication, Vomiting, Ileus, Hypokalemia Forms Stand Alone Forms: [facility] Suicide Prevention Resources Prescriptions Prescriptions: No Action losartan 50 mg tablet 50 mg PO QAM RF: 0 cyanocobalamin (vitamin B-12) 1,000 mcg tablet 1,000 mcg PO DAILY RF: 0 diltiazem HCl 360 mg capsule,extended release 24hr 360 mg PO DAILY RF: 0 Eliquis 5 mg tablet 5 mg PO BID RF: 0 omeprazole 20 mg capsule,delayed release(DR/EC) 20 mg PO BID RF: 0 isosorbide mononitrate 30 mg tablet extended release 24 hr 90 mg PO DAILY RF: 0 venlafaxine 75 mg capsule,extended release 24hr 225 mg PO QAM RF: 0 quetiapine 400 mg tablet 400 mg PO ONCE PM RF: 0 pantoprazole 40 mg Tablet,Delayed Release (Dr/Ec) 40 mg PO DAILY RF: 0 loratadine 10 mg Tablet 10 mg PO DAILY RF: 0 clonidine HCl 0.1 mg Tablet 0.1 mg PO BID RF: 0 atorvastatin 40 mg Tablet 40 mg PO DAILY RF: 0 Thera M Tablet 1 tab PO DAILY RF: 0 tamsulosin 0.4 mg Capsule 0.4 mg PO DAILY RF: 0 sennosides-docusate sodium [Stimulant Laxative Plus] 8.6-50 mg Tablet 2 tab-cap PO BID RF: 0 docusate sodium [DOK] 100 mg Capsule 100 mg PO HS RF: 0 diltiazem HCl [Cartia XT] 300 mg Capsule,Extended Release 24hr 300 mg PO DAILY RF: 0 albuterol sulfate 90 mcg/actuation HFA aerosol inhaler 90 mcg INHALATION Q46H RF: 0
[2020-08-24 02:14] LABS: Appearance Urine Clear (Clear); Bilirubin Urine Negative (Negative); Blood Urine Negative (Negative); Color Urine Yellow; Glucose Urine UA Negative (Negative); Ketones Urine Negative (Negative); Leukocyte Esterase Urine Negative (Negative); Nitrite Urine Negative (Negative); Protein Urine Negative (Negative); Specific Gravity Urine 1.008 (1.000-1.030); Urobilinogen Urine Negative (Negative); pH Urine 5.5 (4.5-7.5)
[2020-08-24 02:32] LABS: Amphetamines+Metham, Urine Neg (Neg); Barbiturates, Urine Neg (Neg); Benzodiazepine, Urine Neg (Neg); Cocaine, Urine Neg (Neg); MDMA (Ecstacy), Urine Neg (Neg); Methadone, Urine Neg (Neg); Opiate, Urine Neg (Neg); Phencyclidine, Urine Neg (Neg)
--- NOTE | 2020-08-24 02:57 | Emergency Department Note ---
ED Visit Note This case was signed out to me at change of shift awaiting sobriety. Once the patient is more sober, he will be evaluated by the ED psychiatric shoe caser. .
[2020-08-24] MEDS ORDERED: POTASSIUM CHLORIDE / WTR 10 MEQ/100 ML PLCT IV ONE (02:58)
[2020-08-24] MEDS ORDERED: ONDANSETRON INJ 2 MG/ML 2 ML VIAL IV STA ×2 (02:58→03:22)
[2020-08-24] MEDS ORDERED: Heparin IV Adult Wt-Based Low-Dose *NO* Bolus Protocol IV ONE (03:22)
[2020-08-24] MEDS ORDERED: MAGNESIUM SULFATE 1GM / D5W BAG IV ONE (03:33)
[2020-08-24] MEDS ORDERED: HEPARIN 25000 UNIT/500 ML D5W IV ONE (03:34)
[2020-08-24] MEDS ORDERED: NSS+KCL 20 MEQ 1000ML IV ONE (03:35)
[2020-08-24] MEDS ORDERED: HEPARIN SODIUM/DEXTROSE 25,000 UNITS/500 ML BAG IV SCH ×2 (03:38→06:09)
[2020-08-24] MEDS: MAGNESIUM SULFATE / D5W 1 GM/100 ML BAG IV SCH ×2 (03:50→06:06)
[2020-08-24] MEDS: NSS + 20MEQ KCL 20 MEQ/1,000 ML BAG IV SCH ×2 (04:04→15:21)
[2020-08-24 04:48] LABS: Partial Thromboplastin Time 27.6 Seconds (21.0-31.0)
[2020-08-24] MEDS ORDERED: FAMOTIDINE 20MG/5ML IV PUSH IV ONE (04:59)
[2020-08-24] MEDS ORDERED: ATIVAN IV ALCOHOL WITHDRAWL IV PRN (05:22)
[2020-08-24] MEDS ORDERED: LORazepam 1 MG/2 ML VIAL IV PRN (05:22)
[2020-08-24] MEDS ORDERED: LORazepam 3 MG/6 ML VIAL IV PRN (05:22)
[2020-08-24] MEDS ORDERED: LORazepam 2 MG/4 ML VIAL IV PRN (05:22)
[2020-08-24] MEDS ORDERED: METOPROLOL TARTRATE 1 MG/ML VIAL IV PRN (05:38)
--- NOTE | 2020-08-24 05:42 | History & Physical Report ---
Date of Service August 24, 2020 Assessment & Plan (1) Gastroenteritis: Gastroenteritis/possible mild ileus/intermittent nausea and vomiting- Symptoms likely amplified by being anxious in the ED N.p.o. overnight, full liquid diet if tolerated in the morning, and advance as tolerated Famotidine 20 mg IV every 12 hours Present on Admission?: Yes (2) Suicidal ideation: Suicidal ideation/schizoaffective disorder/depression- Consult psychiatry For now continue with venlafaxine, quetiapine Present on Admission?: Yes (3) Schizoaffective disorder: See above Present on Admission?: Yes (4) Depression: See above Present on Admission?: Yes (5) Alcohol intoxication: Alcohol level 197.3 upon admission labs Placed on AWSS protocol Present on Admission?: Yes (6) Atrial fibrillation, permanent: Atrial fibrillation/hypertension- Continue clonidine 0.1 mg p.o. twice daily and diltiazem 360 mg p.o. daily Other medications will be held He may need to have medications changed over to IV in the a.m. if not tolerating p.o. Patient missed his current dosing of Eliquis for the evening. Since it is unclear whether he will be able to tolerate medications in the a.m., will place him on heparin IV low-dose without bolus until able to take Eliquis reliably Magnesium sulfate 2 g IV, for magnesium level 1.7. NSS + KCl 20 mEq at 100 mL x 1 L. Admission potassium 3.2 Follow laboratory serially Present on Admission?: Yes (7) Hypertension: See above Present on Admission?: Yes (8) GERD (gastroesophageal reflux disease): Placed on famotidine 20 mg IV every 12 hours Present on Admission?: Yes Admission and Anticipated Discharge Date Admission Date: August 24, 2020 History of Present Illness Chief Complaint: Patient presents to the emergency department with complaint of vomiting and suicidal ideation. Primary Care Provider: NO PCP The patient is an 79-year-old male with a past medical history including pulmonary hypertension, permanent atrial fibrillation, acute on chronic diastolic CHF, schizoaffective disorder, obesity, hypoxia, noncompliance, GERD, depression and hypertension. He presents with the above symptoms. While in the emergency department, he did have few episodes of nausea and vomiting, and did report abdominal discomfort. Work-up in the emergency department included a CT scan of abdomen pelvis, which suggested ileus versus more likely gastroenteritis, and mild distention of the urinary bladder suggestive of chronic bladder outlet obstruction. Allergies Allergy/AdvReac Type Severity Reaction Status Date / Time amoxicillin Allergy Mild RASH Verified 08/23/20 22:38 clindamycin Allergy Mild RASH Verified 08/23/20 22:38 latex Allergy Mild RASH Verified 08/23/20 22:38 aspirin Allergy Unknown Unknown Verified 08/23/20 22:38 Penicillins Allergy Unknown RASH FROM Verified 08/23/20 22:38 AMOXICILLIN, BUT PCN IS OK haloperidol AdvReac Intermediate PT STATES Verified 08/23/20 22:38 HE LOCKS UP metronidazole AdvReac Mild ABDOM PAIN Verified 08/23/20 22:38 &CRAMPS olanzapine AdvReac Mild PANCREATITI Verified 08/23/20 22:38 S lithium AdvReac Unknown SENSITIVE Verified 08/23/20 22:38 TO IT BECOMES TOXIC Home Medications Medication Instructions Recorded Confirmed Type quetiapine 400 mg PO ONCE PM 01/08/19 08/23/20 History Eliquis 5 mg PO BID 03/23/20 08/23/20 History cyanocobalamin (vitamin B-12) 1,000 mcg PO DAILY 03/23/20 08/23/20 History diltiazem HCl 360 mg PO DAILY 03/23/20 08/23/20 History isosorbide mononitrate 90 mg PO DAILY 03/23/20 08/23/20 History losartan 50 mg PO QAM 03/23/20 08/23/20 History omeprazole 20 mg PO BID 03/23/20 08/23/20 History venlafaxine 225 mg PO QAM 03/23/20 08/23/20 History albuterol sulfate 90 mcg INHALATION Q46H 08/23/20 08/23/20 History atorvastatin 40 mg PO DAILY 08/23/20 08/23/20 History clonidine HCl 0.1 mg PO BID 08/23/20 08/23/20 History diltiazem HCl [Cartia XT] 300 mg PO DAILY 08/23/20 08/23/20 History docusate sodium [DOK] 100 mg PO HS 08/23/20 08/23/20 History loratadine 10 mg PO DAILY 08/23/20 08/23/20 History multivitamin,tx-minerals [Thera M] 1 tab PO DAILY 08/23/20 08/23/20 History pantoprazole 40 mg PO DAILY 08/23/20 08/23/20 History sennosides-docusate sodium 2 tab-cap PO BID 08/23/20 08/23/20 History [Stimulant Laxative Plus] tamsulosin 0.4 mg PO DAILY 08/23/20 08/23/20 History Past Med/Surg History Medical History (Updated 08/24/20 @ 05:32 by Fernandez Gregory MD) Atrial fibrillation, permanent Chronic diastolic CHF (congestive heart failure) Depression GERD (gastroesophageal reflux disease) Hypertension Loose stools Obesity Schizoaffective disorder Schizophrenia Suicidal ideation Surgical History No pertinent past surgical history Family History Father Cancer colon Other Family history non-contributory Social History Smoking Status: Never smoker Tobacco Type: Cigarettes Age Quit Using Tobacco: 49; packs per day: 1; Years Smoked: 30; Second Hand Exposure: No; Hx Alcohol Use: Yes Alcohol type: beer Hx Substance Use: No Preferred Language: Kittitian Communication Ability: Effective 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 Beliefs That Will Affect Care: None marital status: Single Current Living Situation: Alone Feels Safe at Home: Yes Assistive Devices: None Review of Systems Review of Systems: The patient denies chest pain, palpitations, shortness of breath, dyspnea on exertion, cough, lower extremity swelling, sore throat, fevers, chills, sweats, diarrhea , constipation, abdominal pain, pelvic pain, blood in urine or stool, dysuria, urinary frequency or urgency, loss of consciousness, rash, abnormal bruising or bleeding, imbalance, focal weakness, numbness or tingling in arms or legs, generalized arthralgias or myalgias, back or neck pain, or night sweats. The review of systems is otherwise negative other than for that already noted above, and at least 10 systems have been reviewed. Physical Exam Physical Exam: The patient is awake, alert and oriented 3, well developed and well nourished, normocephalic and atraumatic, lying in bed and in no acute distress. HEENT--PERRL, EOMI, mucous membranes and oropharynx dry. Neck--supple. No JVD. No bruits. Thyroid normal, trachea midline, no adenopathy. Heart--normal S1 and S2. No murmurs, rubs or gallops. Lungs--clear bilaterally, no respiratory distress, no accessory muscle use. Abdomen--normal bowel sounds and soft. Mild generalized tenderness. Mildly tympanic. Nondistended. Morbidly obese, with BMI 37.0 Extremities--no cyanosis or clubbing. No edema. Dermatologic--normal skin Neurologic--cranial nerves II through XII grossly intact. Rheumatologic--normal range of motion. Psychiatric--reportedly made plans of wanting to kill himself or have someone kill him, but he made none of these during my evaluation Results & Data Results & Data ([facility]) Vital Signs (Past 12 Hours) Vital Signs Temp Pulse Pulse Resp BP BP Pulse Ox 08/24/20 05:00 74 15 185/94 H 90 08/24/20 04:39 79 20 172/101 H 92 08/24/20 03:30 164/109 H 92 08/24/20 02:31 70 12 160/95 H 08/24/20 01:30 85 14 105/72 08/24/20 01:00 80 14 130/61 95 08/23/20 23:02 72 16 144/80 H 92 08/23/20 21:43 99.0 F 83 83 20 141/77 H 141/77 H 93 Laboratory Results Laboratory Results WBC 6.99 K/uL (4.8-10.8) 08/23/20 22:13 RBC 4.42 M/uL (4.7-6.1) L 08/23/20 22:13 Hgb 14.0 g/dL (14.0-18.0) 08/23/20 22:13 Hct 39.4 % (42-52) L 08/23/20 22:13 MCV 89.1 fL (80-100) 08/23/20 22:13 MCH 31.7 pg (25-34) 08/23/20 22:13 MCHC 35.5 g/dL (32-36) 08/23/20 22:13 RDW Std Deviation 43.8 fL (36.4-46.3) 08/23/20 22:13 RDW Coeff of [place] 13.5 % (11.5-14.5) 08/23/20 22:13 Plt Count 151 K/uL (130-400) 08/23/20 22:13 MPV 10.8 fL (7.4-10.4) H 08/23/20 22:13 Immature Gran % (Auto) 0.3 % 08/23/20 22:13 Neut % (Auto) 66.1 % 08/23/20 22:13 Lymph % (Auto) 25.3 % 08/23/20 22:13 [place] % (Auto) 6.0 % 08/23/20 22:13 Eos % (Auto) 2.0 % 08/23/20 22:13 Baso % (Auto) 0.3 % 08/23/20 22:13 Neut # (Auto) 4.62 K/uL (1.4-6.5) 08/23/20 22:13 Lymph # (Auto) 1.77 K/uL (1.2-3.4) 08/23/20 22:13 [place] # (Auto) 0.42 K/uL (0.11-0.59) 08/23/20 22:13 Eos # (Auto) 0.14 K/uL (0-0.5) 08/23/20 22:13 Baso # (Auto) 0.02 K/uL (0-0.2) 08/23/20 22:13 Immature Gran # (Auto) 0.02 K/uL (0.00-0.02) 08/23/20 22:13 APTT 27.6 Seconds (21.0-31.0) 08/24/20 04:25 PTT Ratio 1.0 08/24/20 04:25 Sodium 135 mmol/L (136-145) L 08/23/20 22:13 Potassium 3.2 mmol/L (3.5-5.1) L 08/23/20 22:13 Chloride 99 mmol/L (98-107) 08/23/20 22:13 Carbon Dioxide 25 mmol/L (21-32) 08/23/20 22:13 Anion Gap 11.0 (3-11) 08/23/20 22:13 BUN 12 mg/dl (7-18) 08/23/20 22:13 Creatinine 0.84 mg/dl (0.6-1.4) 08/23/20 22:13 Est Cr Clr Drug Dosing 92.6 ml/min 08/23/20 22:13 Est GFR ( Amer) 95.8 ml/min 08/23/20 22:13 Est GFR (Non-Af Amer) 82.7 ml/min 08/23/20 22:13 BUN/Creatinine Ratio 14.8 (10-20) 08/23/20 22:13 Glucose 107 mg/dl (70-99) H 08/23/20 22:13 Calcium 8.0 mg/dl (8.5-10.1) L 08/23/20 22:13 Magnesium 1.7 mg/dl (1.8-2.4) L 08/23/20 22:13 Total Bilirubin 0.5 mg/dl (0.2-1) 08/23/20 22:13 AST 14 U/L (15-37) L 08/23/20 22:13 ALT 19 U/L (12-78) 08/23/20 22:13 Alkaline Phosphatase 88 U/L (45-117) 08/23/20 22:13 Troponin I < 0.015 ng/ml (0-0.045) 08/23/20 22:13 Total Protein 6.6 gm/dl (6.4-8.2) 08/23/20 22:13 Albumin 3.3 gm/dl (3.4-5.0) L 08/23/20 22:13 Globulin 3.3 gm/dl (2.5-4.0) 08/23/20 22:13 Albumin/Globulin Ratio 1.0 (0.9-2) 08/23/20 22:13 TSH 4.490 uIu/ml (0.300-4.500) 08/23/20 22:13 Urine Color Yellow 08/24/20 02:05 Urine Appearance Clear (Clear) 08/24/20 02:05 Urine pH 5.5 (4.5-7.5) 08/24/20 02:05 Ur Specific [place] 1.008 (1.000-1.030) 08/24/20 02:05 Urine Protein Negative (Negative) 08/24/20 02:05 Urine Glucose (UA) Negative (Negative) 08/24/20 02:05 Urine Ketones Negative (Negative) 08/24/20 02:05 Urine Blood Negative (Negative) 08/24/20 02:05 Urine Nitrite Negative (Negative) 08/24/20 02:05 Urine Bilirubin Negative (Negative) 08/24/20 02:05 Urine Urobilinogen Negative (Negative) 08/24/20 02:05 Ur Leukocyte Esterase Negative (Negative) 08/24/20 02:05 Salicylates < 1.7 mg/dl (2.8-20) L 08/23/20 22:13 Urine Opiates Screen Neg (Neg) 08/24/20 02:05 Ur Methadone, Qual Neg (Neg) 08/24/20 02:05 Acetaminophen < 2 ug/ml (10-30) L 08/23/20 22:13 Urine Barbiturates Neg (Neg) 08/24/20 02:05 Ur Phencyclidine (PCP) Neg (Neg) 08/24/20 02:05 U Amphetamin/Meth Scrn Neg (Neg) 08/24/20 02:05 MDMA (Ecstasy) Screen Neg (Neg) 08/24/20 02:05 U Benzodiazepines Scrn Neg (Neg) 08/24/20 02:05 Ur Cocaine Metabolite Neg (Neg) 08/24/20 02:05 U Marijuana (THC) Screen Neg (Neg) 08/24/20 02:05 Ethyl Alcohol mg/dL 197.3 mg/dl (0-3) H 08/23/20 22:13 COVID-19 Eval Order Covid19 at [facility] 08/24/20 03:32 SARS-CoV-2 (PCR) NEGATIVE (Negative) 08/24/20 03:32 Impressions Chest X-Ray 08/23/20 22:15 XR chest 1V portable HISTORY: vomiting COMPARISON: Chest 03/23/2020. FINDINGS: Rotated study. No pneumothorax. The cardiac silhouette remains mildly enlarged. Old, healed bilateral rib fractures are again noted. There is diffuse interstitial/vascular thickening likely representing mild initial pulmonary edema. This is similar to the prior study. A few left basilar densities favor subsegmental atelectasis. No definite pleural effusions. IMPRESSION: Cardiomegaly with mild interstitial pulmonary edema. This is similar to the prior study. ACT 112: Negative or not required by law. Electronically signed by: Juan Fitzgerald M.D. 08/23/2020 10:36 PM Diagnostic Findings [facility] Patient: GRACY PAREDES (Male) : 38 Status: ER Date: 08/23/20 23:26 Room #: History: altered mental status Slices: 74 Priors: Tech: Luma Garza @ [phone] Exams: CT HEAD Contrast: Accession Numbers: [id number] Preliminary Findings Only See Final Report For Complete Findings CT HEAD: Comparison to January 08, 2019. Mild central atrophy and periventricular white matter low density consistent with chronic small vessel disease, unchanged. There is no evidence of acute large vessel infarct or intracranial hemorrhage. Left ocular globe prosthesis. The paranasal sinuses demonstrate a 8 mm polyp or mucus retention cyst in the left maxillary sinus. Remaining sinuses and mastoids are normal. No skull fracture or scalp hematoma is seen. Radiologist: Kalyan Kincaid MD Study ready at 23:32 and initial results transmitted at 23:53 *This report constitutes a preliminary interpretation only. Non-acute findings felt to be unrelated to the clinical presentation may not be discussed in this report. The study will be interpreted and a final report will be generated by the local Radiologist the following shift. To reach the hospital radiology department call [phone]. If a discrepancy is found between the preliminary and final interpretations of this study, please notify us via our Client Portal at [email or web address].You can also fax this report with a description of the discrepancy, or include the final report, to our daytime fax number [phone].If faxing, please indicate the severity of discrepancy using one of the following categories: [ ] 1 - Agree/Informational [ ] 2 - Unlikely to Affect Management [ ] 3 - Possible Eventual Change of Management [ ] 4 - Probable Immediate Change of Management For all other patient related information, please fax us at [phone]. [id number] [facility] Patient: GRACY PAREDES (Male) : 38 Status: ER Date: 08/23/20 23:28 Room #: History: altered mental status, vomiting, unknown about appendix Slices: 719 Priors: Tech: Luma Garza @ [phone] Exams: CT ABDOMEN & PELVIS Without Contrast Contrast: Accession Numbers: [id number] Preliminary Findings Only See Final Report For Complete Findings CT ABDOMEN & PELVIS Without Contrast: The urinary bladder is mildly dilated measuring 18 cm long axis. The patient is unable to void, consider urinary retention. No hydronephrosis or ureterolithiasis is seen. Bowel loops are nondilated. There are scattered gas fluid levels in fluid-filled distended but nondilated small bowel loops suggesting ileus or gastroenteritis, less likely low-grade mid small bowel obstruction. No acute focal inflammatory process is seen involving the bowel. The stomach is distended with fluid nondilated. There is a 3.4 cm hiatal hernia. Mild cardiomegaly. Previous cholecystectomy. No biliary duct dilation is seen. Moderate multilevel degenerative change throughout the spine. No acute fracture or subluxation is seen. Radiologist: Kalyan Kincaid MD Study ready at 23:30 and initial results transmitted at 00:03 *This report constitutes a preliminary interpretation only. Non-acute findings felt to be unrelated to the clinical presentation may not be discussed in this report. The study will be interpreted and a final report will be generated by the local Radiologist the following shift. To reach the hospital radiology department call [phone]. If a discrepancy is found between the preliminary and final interpretations of this study, please notify us via our Client Portal at [email or web address].You can also fax this report with a description of the discrepancy, or include the final report, to our daytime fax number [phone].If faxing, please indicate the severity of discrepancy using one of the following categories: [ ] 1 - Agree/Informational [ ] 2 - Unlikely to Affect Management [ ] 3 - Possible Eventual Change of Management [ ] 4 - Probable Immediate Change of Management For all other patient related information, please fax us at [phone]. [id number] Code Status & VTE Plan Code Status Full code VTE Prophylaxis Plan VTE Prophylaxis will be ordered: Yes PG Care Time/CCT Total # of Minutes Spent Total Time Spent with Patient: Total time spent is greater than 50% in coordination of care (as documented) at patient's floor/unit and/or counseling patient: Coding Level of Care Code 39739 Initial Inpt Care Lvl 3 Diagnoses Gastroenteritis K52.9 Suicidal ideation R45.851 Schizoaffective disorder F25.9 Schizoaffective disorder type: unspecified Depression F32.9 Alcohol intoxication F10.929 Atrial fibrillation, permanent I48.21 Hypertension I10 GERD (gastroesophageal reflux disease) K21.9 (1) Schizoaffective disorder Schizoaffective disorder type: unspecified Qualified Code(s): F25.9 - Schizoaffective disorder, unspecified
[2020-08-24] MEDS ORDERED: ONDANSETRON INJ 2 MG/ML 2 ML VIAL IV PRN (06:09)
[2020-08-24] MEDS ORDERED: ACETAMINOPHEN 325 MG TAB PO PRN (06:09)
[2020-08-24] MEDS ORDERED: Heparin IV Adult Wt-Based Low-Dose *NO* Bolus Protocol IV SCH (06:09)
--- NOTE | 2020-08-24 07:27 | CT Scan Report ---
CT head/brain wo con CLINICAL HISTORY: ams COMPARISON STUDY: January 08, 2019 TECHNIQUE: Axial CT of the brain is performed from the vertex to the skull base. IV contrast was not administered for this examination. A dose lowering technique was utilized adhering to the principles of ALARA. CT DOSE: FINDINGS: No intra or extra-axial mass lesions are visualized. There is no CT evidence of acute cortical infarc tion. There is no evidence of midline shift. There is no acute hemorrhage. No acute depressed calvar ial fractures are visualized. There are patchy white matter hypodensities likely on a small vessel basis. Atrophic changes of brain parenchyma are again seen and associated with ex vacuo dilatation of ventri cles. Small mucous polyp is seen within left maxillary sinus. The rest of visualized paranasal sinuses and mastoid air cells are patent and well-aerated. Left ocular globe prosthesis is again seen. Overall evaluation is limited due to mild motion artifact. IMPRESSION: 1. No acute intracranial hemorrhage, no midline shift or space occupying lesions. 2. Chronic small vessel ischemia. 3. Small mucous polyp within left maxillary sinus. 4. Atrophic changes of brain parenchyma associated with ex vacuo dilatation of ventricles. ACT 112: Negative or not required by law. The above report was generated using voice recognition software. It may contain grammatical, syntax o r spelling errors. Electronically signed by: Radha Quinonez DO 08/24/2020 7:26 AM
--- NOTE | 2020-08-24 07:44 | CT Scan Report ---
CT SCAN OF THE ABDOMEN AND PELVIS WITHOUT CONTRAST CLINICAL HISTORY: vomiting COMPARISON STUDY: No previous studies for comparison. TECHNIQUE: CT scan of the abdomen and pelvis was performed from the lung bases to the proximal femurs . Images are reviewed in the axial, sagittal, and coronal planes. IV contrast was not administered fo r this examination. A dose lowering technique was utilized adhering to the principles of ALARA. CT DOSE: 1646.55 mGy.cm FINDINGS: Lower chest: Mild atelectasis at dependent portion of the left lower lobe. 1.8 cm subpleural nodule w ithin right lower lobe (3/63) Liver: The unenhanced liver is normal in size, contour, and attenuation. There is no intrahepatic heron iary ductal dilatation. Gallbladder: Surgically absent. Spleen: Normal in size and attenuation. Pancreas: Unremarkable. Adrenal glands: Unremarkable. Kidneys: The unenhanced kidneys are normal in size without hydronephrosis. There is no contour deform ing renal mass lesion. No renal calculi are identified. Bowel: Small hiatal hernia is seen. Stomach is distended with fluid. Small duodenal diverticulum. Ver[place] el loops are nondilated. Appendix is nondilated. Distal colon is collapsed Peritoneum: There is no intraperitoneal free air or abdominal ascites. Vasculature: The abdominal aorta is normal in course and caliber. Adenopathy: None. Pelvic viscera: Over distended urinary bladder without wall thickening. Prostate gland is not signifi cantly enlarged. Skeletal structures: Osteopenia, syndesmophytes within lower thoracic spine. Extensive bridging osteo phytes at the lumbar spine. Degenerative changes of bilateral hip joints. IMPRESSION: 1. 1.8 cm subpleural nodule within the right lower lobe. Evaluation is limited in this nondedicated exam. Further evaluation with CT of the chest on nonemergency basis without IV contrast is suggested 2. Dilated fluid-filled urinary bladder without wall thickening. Patient might benefit from urinary catheter placement. No evidence of hydronephrosis or nephrolithiasis. 3. Nondilated loops of bowel. Normal appendix. No inflammatory changes are seen within the abdomen o r pelvis. 4. Hiatal hernia. ACT 112: Positive. There are findings on this exam that require communication between the performing entity and the patient following Patient Test Result Information Act ([place] Act 112) guidelines. The above report was generated using voice recognition software. It may contain grammatical, syntax o r spelling errors. Electronically signed by: Radha Quinonez DO 08/24/2020 7:42 AM
[2020-08-24] MEDS: TAMSULOSIN HCL 0.4 MG CAP PO SCH (08:08)
[2020-08-24] MEDS: FOLIC ACID 1 MG TAB PO SCH (08:09)
[2020-08-24] MEDS: cloNIDine HCL 0.1 MG TAB PO SCH ×2 (08:09→20:05)
[2020-08-24] MEDS: NEPHROCAPS PO SCH (08:09)
[2020-08-24] MEDS: THIAMINE HCL 100 MG TAB PO SCH (08:09)
[2020-08-24] MEDS: dilTIAZem HCL 300 MG CAPCR PO SCH (08:09)
[2020-08-24 10:17] LABS: Albumin Level 3.4 gm/dl (3.4-5.0); BUN Creatinine Ratio 15.2 (10-20); Calcium 8.2 mg/dl (8.5-10.1); Creatinine Clr Calc Pharmacy 95.5 ml/min; Est GFR (African American) 98.3 ml/min; Est GFR (Non-African American) 84.8 ml/min; Potassium 4.2 mmol/L (3.5-5.1)
[2020-08-24 10:25] LABS: Albumin Globulin Ratio 1.1 (0.9-2); Bilirubin,Total 0.9 mg/dl (0.2-1); Globulin 3.1 gm/dl (2.5-4.0); Total Protein 6.5 gm/dl (6.4-8.2)
[2020-08-24] MEDS: VENLAFAXINE HCL XR 75 MG CAPXR PO SCH (10:25)
[2020-08-24] MEDS: LOSARTAN POTASSIUM 50 MG TAB PO SCH (10:25)
[2020-08-24] MEDS: APIXABAN 5 MG TABLET PO SCH ×2 (10:25→20:05)
[2020-08-24] MEDS: ISOSORBIDE MONO EXTENDED REL 30 MG TABCR PO SCH (10:25)
--- NOTE | 2020-08-24 11:02 | Electrocardiogram Report ---
Test Reason : Blood Pressure : / mmHG Vent. Rate : 067 BPM Atrial Rate : 107 BPM P-R Int : 000 ms QRS Dur : 094 ms QT Int : 436 ms P-R-T Axes : 000 -16 032 degrees QTc Int : 460 ms Atrial fibrillation Abnormal ECG When compared with ECG of 23-MAR-2020 09:26, T wave amplitude has decreased in Anterior leads Confirmed by Colin Leon ([id number]) on 08/24/2020 11:01:58 AM Referred By: REFERRED SELF Confirmed By:Benito Leon
[2020-08-24] MEDS ORDERED: bisacodyL 10 MG SUPP PR PRN (14:19)
--- NOTE | 2020-08-24 14:36 | Communication Note ---
Date of Service: August 24, 2020 Also, with PULM nodule seen on CT abd/pel -should follow as outpt with Chest CT
--- NOTE | 2020-08-24 14:36 | History & Physical Bridge Note ---
Date of Service August 24, 2020 History & Physical Bridge Note I have examined the patient, reviewed the History & Physical and in the interval since the performance of the History & Physical I have noted the following changes of clinical significance: Pt reports continued abdominal distension after having liquids for lunch. Had small BM this AM that was formed but is having central abd pain. No nausea or vomiting. Reports he just got out of a 1 week hospital stay followed by SNF stay x 1 week for CHF exacerbation (describes leg swelling and weight gain) and went home for one day, came here and went to a bar and drank 10 beers. He reports he had not drank EtOH in over a year. He denies drug use and quit smoking 30 years ago. He has been taking his meds he reports. Reports increased depression and thoughts of self harm Vitals reviewed Tele with Afib, rates controlled Anxious, NAD irreg irreg, normal rate +decreased BS at bases Abd +BS soft, mild TTP central abdomen without guarding or rebound Ext trace pitting edema 79 yo male here with N/V, ileus, mild urinary retention, and EtOH intoxication. -make NPO given worsening abd distension since having full liquids, ok to take po meds with small sips dc heparin gtt and restart hoe Eliquis no obstruction on CT -add bisacodyl KS suppos prn and add daily senna -not likely to have withdrawal from EtOH if he is truthful about his lack of frequent use -reduce IVFs to 60mL/hr given CHF check ECHO
[2020-08-24] MEDS ORDERED: PERFLUTREN LIPID MICROSPHERE (DEFINITY) IV ONE (15:11)
[2020-08-24] MEDS: SENNA 8.6 MG TAB PO SCH (15:21)
--- NOTE | 2020-08-24 16:11 | Psychiatric Consultation ---
Date of Consultation August 24, 2020 Psych History Chief Complaint "[]". History of Present Illness As per initial consult "met with patient to complete initial psychiatric nurse assessment. Upon entering patients room he is awake, alert and oriented X4. He is easily engaged and appropriately introduces himself. His chief complaint is " I need to get back on my Seroquel. It's makes me hear voices. I shouldn't have stopped taking it". Reporst that since stopping his Seroquel approximately five days ago he has been experiencing auditory hallucinations of a voice unknown to him telling him to self harm via overdose. He reports auditory hallucinations typically manifest due to noncompliance with Seroquel in his past. He also endorses several depressive symptoms including poor sleep, decreased interest in leisure activities, decreased energy, poor concentration, and feeling "sluggish". SI occuring less that daily with thoughts to overdose on medications. He is able to contract for safety within the hospital and denies intents to act upon those thoughts. Axniety is "alright" and does not interfere with daily functioning. He is able to complete all ADL's independently. He denies VH or HI. Stressors include chronic financial, 3 friends that have recently , and the possibility that he may have to move out of his residence in [place] after having too many visitors and the landlord "screwing me over". He reports that his current medication regimen should include Effexor 225 MG PO QAM and Seroquel 400 MG PO QHS. Patient stopped taking Seroquel approximately 5 days ago and is unable to provide a reason. He reports that he has remaining supply of that medication at home. Outpatient psychiatrist by the name of Ani Finch, he is unable to approximate the date of his last appointment. He is unwilling to sign AIMEE consent for this provider at this time and would like to consider it overnight. No outpatient therapist, he is not interested at this time. Service Tester in [place], he does not recall their name. [facility] with 23 past suicide attempts including overdoses. In one past attempt he had jumped from a bridge which resulted in a fractured arm. Prior medications include "anything that you can think of". Family history includes Paranoid Schizophrenia by his Mother. Endorses history of alcoholism with his last use 0.5 years ago. Four past inpatient alcohol rehab treatments. Denies other illicit drug use. Former smoker, last use 31 years ago. Reports three current supports including his sister, one friend in [place], and one friend in [place]. 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 Never . No children. He is pleasant to interact with and is willing to meet with psychiatrist tomorrow." Patient upon interview today endorses the above information is accurate. Allergies Allergy/AdvReac Type Severity Reaction Status Date / Time amoxicillin Allergy Mild RASH Verified 08/23/20 22:38 clindamycin Allergy Mild RASH Verified 08/23/20 22:38 latex Allergy Mild RASH Verified 08/23/20 22:38 aspirin Allergy Unknown Unknown Verified 08/23/20 22:38 Penicillins Allergy Unknown RASH FROM Verified 08/23/20 22:38 AMOXICILLIN, BUT PCN IS OK haloperidol AdvReac Intermediate PT STATES Verified 08/23/20 22:38 HE LOCKS UP metronidazole AdvReac Mild ABDOM PAIN Verified 08/23/20 22:38 &CRAMPS olanzapine AdvReac Mild PANCREATITI Verified 08/23/20 22:38 S lithium AdvReac Unknown SENSITIVE Verified 08/23/20 22:38 TO IT BECOMES TOXIC Home Medications Medication Instructions Recorded Confirmed Type quetiapine 400 mg PO ONCE PM 01/08/19 08/23/20 History Eliquis 5 mg PO BID 03/23/20 08/23/20 History cyanocobalamin (vitamin B-12) 1,000 mcg PO DAILY 03/23/20 08/23/20 History diltiazem HCl 360 mg PO DAILY 03/23/20 08/23/20 History isosorbide mononitrate 90 mg PO DAILY 03/23/20 08/23/20 History losartan 50 mg PO QAM 03/23/20 08/23/20 History omeprazole 20 mg PO BID 03/23/20 08/23/20 History venlafaxine 225 mg PO QAM 03/23/20 08/23/20 History albuterol sulfate 90 mcg INHALATION Q46H 08/23/20 08/23/20 History atorvastatin 40 mg PO DAILY 08/23/20 08/23/20 History clonidine HCl 0.1 mg PO BID 08/23/20 08/23/20 History diltiazem HCl [Cartia XT] 300 mg PO DAILY 08/23/20 08/23/20 History docusate sodium [DOK] 100 mg PO HS 08/23/20 08/23/20 History loratadine 10 mg PO DAILY 08/23/20 08/23/20 History multivitamin,tx-minerals [Thera M] 1 tab PO DAILY 08/23/20 08/23/20 History pantoprazole 40 mg PO DAILY 08/23/20 08/23/20 History sennosides-docusate sodium 2 tab-cap PO BID 08/23/20 08/23/20 History [Stimulant Laxative Plus] tamsulosin 0.4 mg PO DAILY 08/23/20 08/23/20 History Personal History Beliefs That Will Affect Care: None Patient History Medical History (Updated 08/24/20 @ 05:32 by Fernandez Gregory MD) Atrial fibrillation, permanent Chronic diastolic CHF (congestive heart failure) Depression GERD (gastroesophageal reflux disease) Hypertension Loose stools Obesity Schizoaffective disorder Schizophrenia Suicidal ideation Surgical History No pertinent past surgical history Family History Father Cancer colon Other Family history non-contributory Social History Smoking Status: Former smoker Tobacco Type: Cigarettes Age Quit Using Tobacco: 49; packs per day: 1; Years Smoked: 30; Second Hand Exposure: No; Hx Alcohol Use: Yes Alcohol type: beer Hx Substance Use: No Preferred Language: Turkmen Communication Ability: Effective Ground Worker Required: No Beliefs That Will Affect Care: None marital status: Single Current Living Situation: Alone Feels Safe at Home: Yes Assistive Devices: None Physical Exam Vital Signs (Past 24 Hours): Last Vital Signs Temp 37.1 C 08/24/20 15:30 Pulse 74 08/24/20 15:35 Resp 20 08/24/20 15:30 BP 118/69 08/24/20 15:30 Pulse Ox 94 08/24/20 15:30 Results & Data (PSY) Medications Administered Apixaban (Apixaban 5 Mg Tablet) 5 mg PO BID [facility] Stop: 09/23/20 09:59 Last Admin: 08/24/20 10:25 Dose: 5 mg Documented by: [id number] Clonidine HCl (Clonidine Hcl 0.1 Mg Tab) 0.1 mg PO BID [facility] Stop: 09/23/20 08:59 Last Admin: 08/24/20 08:09 Dose: 0.1 mg Documented by: [id number] Diltiazem HCl (Diltiazem Hcl 300 Mg Capcr) 300 mg PO QAM [facility] Stop: 09/23/20 08:59 Last Admin: 08/24/20 08:09 Dose: 300 mg Documented by: [id number] Folic Acid (Folic Acid 1 Mg Tab) 1 mg PO QAM [facility] Stop: 09/23/20 08:59 Last Admin: 08/24/20 08:09 Dose: 1 mg Documented by: [id number] Potassium Chloride/Sodium Chloride (Normal Saline W/20 Meq Kcl) 20 meq in 1,000 mls @ 60 mls/hr IV .[id number] [facility] Stop: 09/23/20 03:29 Last Admin: 08/24/20 15:21 Dose: 60 mls/hr Documented by: [id number] Infusion: 08/24/20 15:21 Dose: 60 mls/hr Documented by: [id number] Infusion: 08/24/20 15:17 Dose: 60 mls/hr Documented by: [id number] Infusion: 08/24/20 09:51 Dose: 70 mls/hr Documented by: [id number] Admin: 08/24/20 04:04 Dose: 100 mls/hr Documented by: [id number] Isosorbide Mononitrate (Isosorbide [place] Extended Rel 30 Mg Tabcr) 90 mg PO DAILY [facility] Stop: 09/23/20 09:59 Last Admin: 08/24/20 10:25 Dose: 90 mg Documented by: [id number] Losartan Potassium (Losartan Potassium 50 Mg Tab) [facility] Stop: 09/23/20 09:59 Last Admin: 08/24/20 10:25 Dose: 50 mg Documented by: [id number] Sennosides (Senna 8.6 Mg Tab) 8.6 [facility] Stop: 09/23/20 13:59 Last Admin: 08/24/20 15:21 Dose: 8.6 mg Documented by: [id number] Tamsulosin HCl (Tamsulosin Hcl 0.4 Mg Cap) 0.4 mg PO DAILY [facility] Stop: 09/23/20 08:59 Last Admin: 08/24/20 08:08 Dose: 0.4 mg Documented by: [id number] Thiamine HCl (Thiamine Hcl 100 Mg Tab) [facility] Stop: 09/23/20 08:59 Last Admin: 08/24/20 08:09 Dose: 100 mg Documented by: [id number] Venlafaxine HCl (Venlafaxine Hcl Xr 75 Mg Capxr) 225 [facility] Stop: 09/23/20 09:59 Last Admin: 08/24/20 10:25 Dose: 225 mg Documented by: [id number] Vitamin B Complex/Folic Acid (Nephrocaps) 1 [facility] Stop: 09/23/20 08:59 Last Admin: 08/24/20 08:09 Dose: 1 cap Documented by: [id number] Coding
--- NOTE | 2020-08-24 16:55 | Psychiatric Consultation ---
Date of Consultation August 24, 2020 Impression / Recommendations Impression 79-year-old male with schizophrenia who presents to the emergency department following an episode of intoxication during which patient expressed mental health issues. Upon today's evaluation, patient's condition is rapidly improved, which is indicative that his intoxication was most likely responsible for his presentation as opposed to severe psychiatric instability. Patient is able to appropriately discuss his chronic suicidal ideation and deny that he would act upon it. Furthermore at the time of this interview patient is not exhibiting any psychotic behaviors and was able to speak to commercial real estate underwriter in a john sonable manner. Plan: Restart patient's home medications at home dosages--venlafaxine 225mg qam, Seroquel 400mg nightly. Patient is not acutely suicidal at this time and does not require one-to-one observation. We will continue to evaluate patient to determine necessity for inpatient psychiatric hospitalization. It is possible that patient may stabilize after 1 or 2 doses of home medication and not require inpatient hospitalization. We will continue to obtain collateral information on patient's living situation to determine safety. Risk Factors Assessment Male: Yes : Yes Previous Attempt: Yes Hopelessness: No Protective Factors Assessment Good Rapport with Provider: Yes Psych History Chief Complaint "I am winded all the time". History of Present Illness Patient is an 79-year-old male with a past psychiatric history of schizoaffective disorder who present presented to the emergency department with complaints of vomiting and mental health evaluation after night of drinking. Patient reports that he took the bus from [place] to attend the [employer] bar in [place]. He states that he had just beer and it was his first drink of the year, and then after walking approximately 2 blocks he had a stop since he was not feeling well. Patient states that he has been without his medications for several days and was acknowledging suicidal ideation at that time. Upon evaluation today, patient reports feeling much better. He does continue to complain of stomach pain and is currently being treated on the medical floors. Patient states that he is not actively suicidal at this time. He states that he has had numerous suicide attempts throughout the course of his life including approximately 25 previous attempts with the first time being in 1982. Patient has also had multiple inpatient hospitalizations in the past. Although he did acknowledge psychotic symptoms in the emergency department, he is no longer acknowledging no symptoms today. He states that he does have chronic suicidal ideation, but has no intentions to act on it at this time. Patient is requesting to be restarted on his medications in hopes that he can get better and return home. Past Psychiatric History Previous Psych History: Patient has history of 25 prior suicide attempts as well as multiple inpatient hospitalizations. Past Medication Trials: Past med trials include Haldol, olanzapine, lithium Allergies Allergy/AdvReac Type Severity Reaction Status Date / Time amoxicillin Allergy Mild RASH Verified 08/23/20 22:38 clindamycin Allergy Mild RASH Verified 08/23/20 22:38 latex Allergy Mild RASH Verified 08/23/20 22:38 aspirin Allergy Unknown Unknown Verified 08/23/20 22:38 Penicillins Allergy Unknown RASH FROM Verified 08/23/20 22:38 AMOXICILLIN, BUT PCN IS OK haloperidol AdvReac Intermediate PT STATES Verified 08/23/20 22:38 HE LOCKS UP metronidazole AdvReac Mild ABDOM PAIN Verified 08/23/20 22:38 &CRAMPS olanzapine AdvReac Mild PANCREATITI Verified 08/23/20 22:38 S lithium AdvReac Unknown SENSITIVE Verified 08/23/20 22:38 TO IT BECOMES TOXIC Home Medications Medication Instructions Recorded Confirmed Type quetiapine 400 mg PO ONCE PM 01/08/19 08/23/20 History Eliquis 5 mg PO BID 03/23/20 08/23/20 History cyanocobalamin (vitamin B-12) 1,000 mcg PO DAILY 03/23/20 08/23/20 History diltiazem HCl 360 mg PO DAILY 03/23/20 08/23/20 History isosorbide mononitrate 90 mg PO DAILY 03/23/20 08/23/20 History losartan 50 mg PO QAM 03/23/20 08/23/20 History omeprazole 20 mg PO BID 03/23/20 08/23/20 History venlafaxine 225 mg PO QAM 03/23/20 08/23/20 History albuterol sulfate 90 mcg INHALATION Q46H 08/23/20 08/23/20 History atorvastatin 40 mg PO DAILY 08/23/20 08/23/20 History clonidine HCl 0.1 mg PO BID 08/23/20 08/23/20 History diltiazem HCl [Cartia XT] 300 mg PO DAILY 08/23/20 08/23/20 History docusate sodium [DOK] 100 mg PO HS 08/23/20 08/23/20 History loratadine 10 mg PO DAILY 08/23/20 08/23/20 History multivitamin,tx-minerals [Thera M] 1 tab PO DAILY 08/23/20 08/23/20 History pantoprazole 40 mg PO DAILY 08/23/20 08/23/20 History sennosides-docusate sodium 2 tab-cap PO BID 08/23/20 08/23/20 History [Stimulant Laxative Plus] tamsulosin 0.4 mg PO DAILY 08/23/20 08/23/20 History Personal History Beliefs That Will Affect Care: None Patient History Medical History (Updated 08/24/20 @ 05:32 by Fernandez Gregory MD) Atrial fibrillation, permanent Chronic diastolic CHF (congestive heart failure) Depression GERD (gastroesophageal reflux disease) Hypertension Loose stools Obesity Schizoaffective disorder Schizophrenia Suicidal ideation Surgical History No pertinent past surgical history Family History Father Cancer colon Other Family history non-contributory Social History Smoking Status: Former smoker Tobacco Type: Cigarettes Age Quit Using Tobacco: 49; packs per day: 1; Years Smoked: 30; Second Hand Exposure: No; Hx Alcohol Use: Yes Alcohol type: beer Hx Substance Use: No Preferred Language: Bulgarian Communication Ability: Effective Bookkeeper Assistant Required: No Beliefs That Will Affect Care: None marital status: Single Current Living Situation: Alone Feels Safe at Home: Yes Assistive Devices: None Physical Exam Vital Signs (Past 24 Hours): Last Vital Signs Temp 37.1 C 08/24/20 15:30 Pulse 74 08/24/20 15:35 Resp 20 08/24/20 15:30 BP 118/69 08/24/20 15:30 Pulse Ox 94 08/24/20 15:30 Results & Data (PSY) Medications Administered Apixaban (Apixaban 5 Mg Tablet) 5 mg PO BID [facility] Stop: 09/23/20 09:59 Last Admin: 08/24/20 10:25 Dose: 5 mg Documented by: [id number] Bisacodyl (Bisacodyl 10 Mg Supp) 10 mg [place] DAILY PRN PRN Reason: Constipation Stop: 09/23/20 14:18 Last Admin: 08/24/20 16:23 Dose: 10 mg Documented by: [id number] Clonidine HCl (Clonidine Hcl 0.1 Mg Tab) 0.1 mg PO BID [facility] Stop: 09/23/20 08:59 Last Admin: 08/24/20 08:09 Dose: 0.1 mg Documented by: [id number] Diltiazem HCl (Diltiazem Hcl 300 Mg Capcr) [facility] Stop: 09/23/20 08:59 Last Admin: 08/24/20 08:09 Dose: 300 mg Documented by: [id number] Folic Acid (Folic Acid 1 Mg Tab) 1 mg PO QAM [facility] Stop: 09/23/20 08:59 Last Admin: 08/24/20 08:09 Dose: 1 mg Documented by: [id number] Potassium Chloride/Sodium Chloride (Normal Saline W/20 Meq Kcl) 20 meq in 1,000 mls @ 60 mls/hr IV .[id number] [facility] Stop: 09/23/20 03:29 Last Admin: 08/24/20 15:21 Dose: 60 mls/hr Documented by: [id number] Infusion: 08/24/20 15:21 Dose: 60 mls/hr Documented by: [id number] Infusion: 08/24/20 15:17 Dose: 60 mls/hr Documented by: [id number] Infusion: 08/24/20 09:51 Dose: 70 mls/hr Documented by: [id number] Admin: 08/24/20 04:04 Dose: 100 mls/hr Documented by: [id number] Isosorbide Mononitrate (Isosorbide [place] Extended Rel 30 Mg Tabcr) 90 mg PO DAILY [facility] Stop: 09/23/20 09:59 Last Admin: 08/24/20 10:25 Dose: 90 mg Documented by: [id number] Losartan Potassium (Losartan Potassium 50 Mg Tab) [facility] Stop: 09/23/20 09:59 Last Admin: 08/24/20 10:25 Dose: 50 mg Documented by: [id number] Sennosides (Senna 8.6 Mg Tab) 8.6 mg PO QAM [facility] Stop: 09/23/20 13:59 Last Admin: 08/24/20 15:21 Dose: 8.6 mg Documented by: [id number] Tamsulosin HCl (Tamsulosin Hcl 0.4 Mg Cap) 0.4 mg PO DAILY [facility] Stop: 09/23/20 08:59 Last Admin: 08/24/20 08:08 Dose: 0.4 mg Documented by: [id number] Thiamine HCl (Thiamine Hcl 100 Mg Tab) 100 mg PO QAM [facility] Stop: 09/23/20 08:59 Last Admin: 08/24/20 08:09 Dose: 100 mg Documented by: [id number] Venlafaxine HCl (Venlafaxine Hcl Xr 75 Mg Capxr) 225 mg PO [facility] Stop: 09/23/20 09:59 Last Admin: 08/24/20 10:25 Dose: 225 mg Documented by: [id number] Vitamin B Complex/Folic Acid (Nephrocaps) 1 cap [facility] Stop: 09/23/20 08:59 Last Admin: 08/24/20 08:09 Dose: 1 cap Documented by: [id number] Coding Level of Care Code 34185 Office/OBS Consult Lvl 3
[2020-08-24] MEDS: FAMOTIDINE 20 MG in SYRINGE 3 ML IV SCH (18:32)
[2020-08-24] MEDS: QUEtiapine FUMARATE 200 MG TAB PO SCH (20:05)
[2020-08-25] MEDS: NSS + 20MEQ KCL 20 MEQ/1,000 ML BAG IV SCH (05:08)
[2020-08-25] MEDS: FAMOTIDINE 20 MG in SYRINGE 3 ML IV SCH ×2 (05:38→18:19)
--- NOTE | 2020-08-25 07:21 | XCELERA ---
[id number]
[2020-08-25] MEDS: cloNIDine HCL 0.1 MG TAB PO SCH ×2 (07:59→20:42)
[2020-08-25] MEDS: LOSARTAN POTASSIUM 50 MG TAB PO SCH (07:59)
[2020-08-25] MEDS: TAMSULOSIN HCL 0.4 MG CAP PO SCH (07:59)
[2020-08-25] MEDS: APIXABAN 5 MG TABLET PO SCH ×2 (07:59→20:42)
[2020-08-25] MEDS: THIAMINE HCL 100 MG TAB PO SCH (07:59)
[2020-08-25] MEDS: ATORVASTATIN 40 MG TAB PO SCH (08:00)
[2020-08-25] MEDS: ISOSORBIDE MONO EXTENDED REL 30 MG TABCR PO SCH (08:00)
[2020-08-25] MEDS: FOLIC ACID 1 MG TAB PO SCH (08:00)
[2020-08-25] MEDS: VENLAFAXINE HCL XR 75 MG CAPXR PO SCH (08:00)
[2020-08-25] MEDS: NEPHROCAPS PO SCH (08:00)
[2020-08-25] MEDS: dilTIAZem HCL 300 MG CAPCR PO SCH (08:01)
[2020-08-25] MEDS: SENNA 8.6 MG TAB PO SCH (08:01)
[2020-08-25 08:26] LABS: Basophils # (auto) 0.01 K/uL (0-0.2); Basophils % (auto) 0.2 %; Eosinophils # (auto) 0.11 K/uL (0-0.5); Eosinophils % (auto) 2.5 %; Hematocrit (blood only) 37.5 % (42-52); Hemoglobin 12.7 g/dL (14.0-18.0); Immature Granulocytes # (auto) 0.01 K/uL (0.00-0.02); Immature Granulocytes % (auto) 0.2 %; Lymphocytes # (auto) 0.75 K/uL (1.2-3.4); Lymphocytes % (auto) 16.8 %; Mean Corpuscular Hemoglobin 31.1 pg (25-34); Mean Corpuscular Hgb Conc 33.9 g/dL (32-36); Mean Corpuscular Volume 91.9 fL (80-100); Mean Platelet Volume 11.5 fL (7.4-10.4); Monocytes # (auto) 0.35 K/uL (0.11-0.59); Monocytes % (auto) 7.8 %; Neutrophils # (auto) 3.24 K/uL (1.4-6.5); Neutrophils % (auto) 72.5 %; Platelet Count 111 K/uL (130-400); RDW Coefficient of Variation 13.8 % (11.5-14.5); RDW Standard Deviation 45.7 fL (36.4-46.3); Red Blood Count 4.08 M/uL (4.7-6.1); White Blood Count 4.47 K/uL (4.8-10.8)
[2020-08-25] MEDS ORDERED: NYSTATIN POWDER 15GM BTL EXT PRN (08:27)
[2020-08-25 08:57] LABS: Albumin Level 2.9 gm/dl (3.4-5.0); BUN Creatinine Ratio 16.8 (10-20); Calcium 8.2 mg/dl (8.5-10.1); Creatinine Clr Calc Pharmacy 99.2 ml/min; Est GFR (African American) 99.9 ml/min; Est GFR (Non-African American) 86.2 ml/min; Magnesium 2.2 mg/dl (1.8-2.4); Potassium 3.8 mmol/L (3.5-5.1)
[2020-08-25 09:00] LABS: Total Protein 5.9 gm/dl (6.4-8.2)
--- NOTE | 2020-08-25 09:57 | Hospitalist Progress Note ---
Date of Service August 25, 2020 Assessment & Plan (1) Vomiting: Presented to ER after depressed episode, drank 10 beers, fell in parking lot and then in ER had vomiting and distended abdomen. CT A/P no obstruction Has significant constipation-has only had 2 small, hard BMs since admission with LA bisacodyl and still has c/o abd distension and pain, no flatus Remains NPO until feeling improved No further nausea/vomiting -work on bowel regimen as below -can take po meds with sips (2) Constipation: Only 2 small, hard BMs with straining since admission CT A/P on admission without obstruction -continue senna -checked Abdomen xray today-appears to have stool throughout and mild dilation colon, no obstruction-await official Rad read -as long as Radiology agrees no obstruction, will give 1 bottle mag citrate and another bisacodyl suppos (3) Urinary retention: PVR 350-straight cathed for approx 350 today could be related to enlarged prostate and constipation -bowel regimen as above -continue Flomax -continue bladder scans, straight cath prn, Mcdonald if has t be straight cathed repeatedly (4) Suicidal ideation: Suicidal ideation/schizoaffective disorder/depression- Consult psychiatry appreciated-no need for inpat Psych or 1:1 anymore, not truly suicidal -continue with venlafaxine, quetiapine (5) Schizoaffective disorder: See above (6) Depression: See above (7) Alcohol intoxication: Alcohol level 197.3 upon admission labs Placed on AWSS protocol but pt reports this is the first time he has drank EtOH in a year If true, not likely to have withdrawal (8) Atrial fibrillation, permanent: With some bradycardia overnight to 30s briefly, 40s but rates mostly 50- 60s -continue diltiazem 300 mg p.o. daily with hold parameters replaced lytes on admission -continue ELiquis continue tele monitoring, may need to cut down on dilt dose if has persistent bradycardia (9) Hypertension: BPs controlled Continue clonidine 0.1 mg p.o. twice daily, losartan, isosorbide, and diltiazem (10) GERD (gastroesophageal reflux disease): continue famotidine 20 mg IV every 12 hours for now (11) Pulmonary hypertension: not on O2 at home, ECHO here with lower Pulm pressures than previously not on diuretics as outpt which is odd as he was just admitted at an outside hospital he reports for CHF? -previously had been on lasix 40mg daily-plan to restart this once on a diet again (12) Chronic diastolic CHF (congestive heart failure): ECHO here with preserved EF no volume overload was just admitted to a hospital in [facility] for presumed CHF (he states his legs were very swollen) and then went to SNF x 1 week, was discharged from SNF 1-2 days prior to admission here -was on IVFs for being NPO but stopped today -BP control -restart lasix in AM if lynne po (13) Obesity: BMI 34.8-needs weight loss (14) Pulmonary nodule: 1.8 cm subpleural nodule within right lower lobe seen on CT a/p has a remote h/o smoking needs dedicated Chest CT without contrast as an outpt-f/u with PCP (15) DVT prophylaxis: Nancie DIspo-continued stay on med-tele Admission and Anticipated Discharge Date Admission Date: August 24, 2020 Subjective Pt still has abd distension and bloating but denies any nausea or vomiting.He reports he had a small hard BM last evening after the bisacodyl suppository but still feels like he has to have a BM but nothing coming out. He has nt passed any flatus this AM Denies CP or SOB. Tele with Afib, rates in 50s-60s with 40s overnight and brief drop to 30s while sleeping Review of Systems Review of Systems: All systems reviewed & are unremarkable except as noted in HPI & below Physical Exam Constitutional: WD/WN, vitals as above Eyes: + anicteric sclerae Neck: trachea midline, no thyromegaly Respiratory: normal respiratory effort Auscultation: + rhonchi (on right side); no crackles and no wheezes Cardiovascular: Rate/Rhythm: regular rate and + irregularly irregular Extremities: + edema (trace pitting edema) Chest (Breasts): Chest: normal inspection of chest Gastrointestinal (Abdomen): Inspection/Auscultation: + abdomen distended (mild) Percussion/Palpation: + abdomen tender (mild in mid abdomen without guarding or rebound) and abdomen soft; no guarding Musculoskeletal: Extremities: extremities normal to inspection; no cyanosis and no clubbing Skin: no rashes, warm and dry Neurologic: moves all extremities and awake; no focal motor deficits Psychiatric: A+Ox3, euthymic affect Lymphatic: no lymphedema Results & Data Results & Data ([facility]) Vital Signs (Past 12 Hours) Vital Signs Temp Pulse Resp BP BP Pulse Ox 08/25/20 07:55 36.5 C 58 L 20 136/71 95 08/25/20 03:33 36.5 C 67 19 122/72 96 08/24/20 23:29 36.4 C L 64 19 129/65 93 Laboratory Results 08/25/20 08/25/20 08/24/20 Range/Units 07:56 07:56 09:44 WBC 4.47 L (4.8-10.8) K/uL RBC 4.08 L (4.7-6.1) M/uL Hgb 12.7 L (14.0-18.0) g/dL Hct 37.5 L (42-52) % MCV 91.9 (80-100) fL MCH 31.1 (25-34) pg MCHC 33.9 (32-36) g/dL RDW Std Deviation 45.7 (36.4-46.3) fL RDW Coeff of Hayden 13.8 (11.5-14.5) % Plt Count 111 L (130-400) K/uL MPV 11.5 H (7.4-10.4) fL Immature Gran % (Auto) 0.2 % Neut % (Auto) 72.5 % Lymph % (Auto) 16.8 % [place] % (Auto) 7.8 % Eos % (Auto) 2.5 % Baso % (Auto) 0.2 % Neut # (Auto) 3.24 (1.4-6.5) K/uL Lymph # (Auto) 0.75 L (1.2-3.4) K/uL [place] # (Auto) 0.35 (0.11-0.59) K/uL Eos # (Auto) 0.11 (0-0.5) K/uL Baso # (Auto) 0.01 (0-0.2) K/uL Immature Gran # (Auto) 0.01 (0.00-0.02) K/uL Sodium 141 137 (136-145) mmol/L Potassium 3.8 4.2 D (3.5-5.1) mmol/L Chloride 109 H 105 (98-107) mmol/L Carbon Dioxide 27 25 (21-32) mmol/L Anion Gap 5.0 7.0 (3-11) BUN 13 12 (7-18) mg/dl Creatinine 0.76 0.79 (0.6-1.4) mg/dl Est Cr Clr Drug Dosing 99.2 95.5 ml/min Est GFR ( Amer) 99.9 98.3 ml/min Est GFR (Non-Af Amer) 86.2 84.8 ml/min BUN/Creatinine Ratio 16.8 15.2 (10-20) Glucose 113 H 101 H (70-99) mg/dl Calcium 8.2 L 8.2 L (8.5-10.1) mg/dl Magnesium 2.2 2.0 (1.8-2.4) mg/dl Total Bilirubin 1.0 0.9 (0.2-1) mg/dl AST 15 18 (15-37) U/L ALT 17 19 (12-78) U/L Alkaline Phosphatase 90 93 (45-117) U/L Total Protein 5.9 L 6.5 (6.4-8.2) gm/dl Albumin 2.9 L 3.4 (3.4-5.0) gm/dl Globulin 3.0 3.1 (2.5-4.0) gm/dl Albumin/Globulin Ratio 1.0 1.1 (0.9-2) Diagnostic Findings Abd xray personally reviewed by me and with +constipation, one mildly dilated portion of colon, no obstruction, await Rad read PG Care Time/CCT Total # of Minutes Spent Total Time Spent with Patient: Total time spent is greater than 50% in coordination of care (as documented) at patient's floor/unit and/or counseling patient: Coding Level of Care Code 12756 Subseq Hosp Care Lvl 3 Diagnoses Vomiting R11.10 Constipation K59.00 Urinary retention R33.9 Suicidal ideation R45.851 Schizoaffective disorder F25.9 Schizoaffective disorder type: unspecified Depression F32.9 Alcohol intoxication F10.929 Atrial fibrillation, permanent I48.21 Hypertension I10 GERD (gastroesophageal reflux disease) K21.9 Pulmonary hypertension I27.20 Chronic diastolic CHF (congestive heart failure) I50.32 Obesity E66.9 Obesity classification: unspecified obesity classification Obesity type: unspecified obesity type Serious obesity comorbidity presence: unspecified whether serious comorbidity present Pulmonary nodule R91.1 DVT prophylaxis Z29.9 (1) Schizoaffective disorder Schizoaffective disorder type: unspecified Qualified Code(s): F25.9 - Schizoaffective disorder, unspecified (2) Obesity Obesity classification: unspecified obesity classification Obesity type: unspecified obesity type Serious obesity comorbidity presence: unspecified whether serious comorbidity present Qualified Code(s): E66.9 - Obesity, unspecified
--- NOTE | 2020-08-25 10:21 | XRay Report ---
CHEST AND ABDOMEN 2 VIEWS HISTORY: Generalized abdominal pain,distension,assess for obstruction COMPARISON: Chest 08/23/2020. FINDINGS: No pneumothorax or no pleural effusions. No new focal lung consolidations to suggest pneumo augustine. Old, healed bilateral rib fractures are noted. The heart is mildly enlarged. No pneumoperitoneum . No pneumatosis. No renal or ureteral calculi. Mildly dilated gas and stool-filled colon. This is si milar to the prior study. No dilated loops of small bowel to suggest a small bowel obstruction. IMPRESSION: 1. No acute process within the chest. 2. Mildly dilated gas and stool-filled colon. This could represent constipation. No dilated loops of small bowel to suggest an obstruction. ACT 112: Negative or not required by law. Electronically signed by: Juan Fitzgerald M.D. 08/25/2020 10:20 AM
[2020-08-25] MEDS ORDERED: MAGNESIUM CITRATE 296 ML/BTL PO STA (10:41)
[2020-08-25] MEDS: QUEtiapine FUMARATE 200 MG TAB PO SCH (20:43)
[2020-08-26] MEDS: FAMOTIDINE 20 MG in SYRINGE 3 ML IV SCH (05:36)
[2020-08-26 07:48] LABS: Basophils # (auto) 0.02 K/uL (0-0.2); Basophils % (auto) 0.5 %; Eosinophils # (auto) 0.17 K/uL (0-0.5); Hematocrit (blood only) 37.1 % (42-52); Hemoglobin 12.4 g/dL (14.0-18.0); Lymphocytes # (auto) 0.97 K/uL (1.2-3.4); Mean Corpuscular Hemoglobin 30.7 pg (25-34); Mean Corpuscular Hgb Conc 33.4 g/dL (32-36); Mean Corpuscular Volume 91.8 fL (80-100); Mean Platelet Volume 11.2 fL (7.4-10.4); Monocytes # (auto) 0.33 K/uL (0.11-0.59); Monocytes % (auto) 7.8 %; Neutrophils # (auto) 2.73 K/uL (1.4-6.5); Neutrophils % (auto) 64.7 %; Platelet Count 115 K/uL (130-400); RDW Coefficient of Variation 13.9 % (11.5-14.5); RDW Standard Deviation 46.4 fL (36.4-46.3); Red Blood Count 4.04 M/uL (4.7-6.1); White Blood Count 4.22 K/uL (4.8-10.8)
[2020-08-26] MEDS: NEPHROCAPS PO SCH (08:03)
[2020-08-26] MEDS: TAMSULOSIN HCL 0.4 MG CAP PO SCH (08:03)
[2020-08-26] MEDS: ATORVASTATIN 40 MG TAB PO SCH (08:03)
[2020-08-26] MEDS: VENLAFAXINE HCL XR 75 MG CAPXR PO SCH (08:03)
[2020-08-26] MEDS: SENNA 8.6 MG TAB PO SCH (08:03)
[2020-08-26] MEDS: APIXABAN 5 MG TABLET PO SCH ×2 (08:03→21:22)
[2020-08-26] MEDS: THIAMINE HCL 100 MG TAB PO SCH (08:03)
[2020-08-26] MEDS: LOSARTAN POTASSIUM 50 MG TAB PO SCH (08:03)
[2020-08-26] MEDS: cloNIDine HCL 0.1 MG TAB PO SCH ×2 (08:03→22:41)
[2020-08-26] MEDS: ISOSORBIDE MONO EXTENDED REL 30 MG TABCR PO SCH (08:03)
[2020-08-26] MEDS: dilTIAZem HCL 300 MG CAPCR PO SCH (08:04)
[2020-08-26 08:21] LABS: BUN Creatinine Ratio 14.2 (10-20); Calcium 8.1 mg/dl (8.5-10.1); Creatinine Clr Calc Pharmacy 103.5 ml/min; Est GFR (African American) 101.5 ml/min; Est GFR (Non-African American) 87.6 ml/min; Magnesium 2.4 mg/dl (1.8-2.4); Phosphorus 2.3 mg/dl (2.5-4.9); Potassium 3.4 mmol/L (3.5-5.1)
[2020-08-26] MEDS: FOLIC ACID 1 MG TAB PO SCH (08:34)
--- NOTE | 2020-08-26 15:27 | Hospitalist Progress Note ---
Date of Service August 26, 2020 Assessment & Plan (1) Vomiting: Presented to ER after depressed episode, drank 10 beers, fell in parking lot, and then in ER had vomiting and distended abdomen. CT A/P on 08/23 with no obstruction. - Resolved at this time. - Return to normal diet. (2) Urinary retention: PVR was 350 mL -straight cathed for approx 350 on 08/25. - Continue Flomax - Continue bladder scans, straight cath prn, Mcdonald if has to be straight cathed repeatedly -> Last bladder scan was 0 mL, so clearly emptying much of the time. (3) Suicidal ideation: Suicidal ideation/schizoaffective disorder/depression. - Consulted psychiatry appreciated - no need for inpat Psych or 1:1 anymore, not truly suicidal. - Continue with venlafaxine, quetiapine (4) Schizoaffective disorder: See above (5) Depression: See above (6) Atrial fibrillation, permanent: With some bradycardia overnight to 30s briefly, 40s but rates mostly 50- 60s. - Continue diltiazem 300 mg p.o. daily with hold parameters - Continue Eliquis (7) Hypertension: BPs controlled today at 150/75. - Continue clonidine 0.1 mg p.o. twice daily, losartan, isosorbide, and diltiazem (8) GERD (gastroesophageal reflux disease): - Continue home PPI (9) Pulmonary hypertension: Not on O2 at home, ECHO here with lower Pulm pressures than previously. Not on diuretics as outpt which is odd as he was just admitted at an outside hospital he reports for CHF? - Previously had been on lasix 40mg daily - Monitor volume status once on a diet again (10) Chronic diastolic CHF (congestive heart failure): ECHO here with preserved EF. No volume overload. Was just admitted to a hospital in [facility] for presumed CHF (he states his legs were very swollen) and then went to SNF x 1 week, was discharged from SNF 1-2 days prior to admission here. - Restart Lasix as needed (11) Pulmonary nodule: 1.8 cm subpleural nodule within right lower lobe seen on CT a/p. Has a remote h/o smoking. - Needs dedicated Chest CT without contrast as an outpt-f/u with PCP (12) DVT prophylaxis: Eliquis Admission and Anticipated Discharge Date Admission Date: August 25, 2020 Subjective Doing overall well today. He reports some abdominal pain which he reports is pretty constant over the last few months. Does report he is hungry. Reports no fevers/chills, chest pain, shortness of breath, nausea, or vomiting. Physical Exam Constitutional: WD/WN, vitals as above Eyes: EOM intact bilaterally; no conjunctival abnormality ENMT: external ear and nose normal, oropharynx normal Neck: trachea midline, no thyromegaly normal visual inspection Respiratory: normal respiratory effort, lungs clear to auscultation no respiratory distress Cardiovascular: RRR, no murmur, no edema Gastrointestinal (Abdomen): Inspection/Auscultation: abdomen normal to inspection; abdomen not distended Musculoskeletal: no cyanosis or clubbing, extremities motor strength 5/5 Skin: no rashes, warm and dry Neurologic: moves all extremities and awake Psychiatric: Orientation: alert, oriented to person and cooperative Results & Data Results & Data ([facility]) Vital Signs (Past 12 Hours) Vital Signs Temp Pulse Pulse Resp BP Pulse Ox 08/26/20 11:51 36.5 C 79 18 148/74 H 93 08/26/20 08:00 58 L 08/26/20 06:48 36.8 C 66 20 163/69 H 95 08/26/20 03:27 36.5 C 60 18 110/52 L 94 PG Care Time/CCT Total # of Minutes Spent Total Time Spent with Patient: Total time spent is greater than 50% in coordination of care (as documented) at patient's floor/unit and/or counseling patient: Coding Level of Care Code 30228 Subseq Hosp Care Lvl 3 Diagnoses Vomiting R11.10 Urinary retention R33.9 Suicidal ideation R45.851 Schizoaffective disorder F25.9 Schizoaffective disorder type: unspecified Depression F32.9 Atrial fibrillation, permanent I48.21 Hypertension I10 GERD (gastroesophageal reflux disease) K21.9 Pulmonary hypertension I27.20 Chronic diastolic CHF (congestive heart failure) I50.32 Pulmonary nodule R91.1 DVT prophylaxis Z29.9 (1) Schizoaffective disorder Schizoaffective disorder type: unspecified Qualified Code(s): F25.9 - Schizoaffective disorder, unspecified
[2020-08-26] MEDS: QUEtiapine FUMARATE 200 MG TAB PO SCH (21:22)
[2020-08-27] MEDS: cloNIDine HCL 0.1 MG TAB PO SCH (07:23)
[2020-08-27] MEDS: NEPHROCAPS PO SCH (07:23)
[2020-08-27] MEDS: ISOSORBIDE MONO EXTENDED REL 30 MG TABCR PO SCH (07:23)
[2020-08-27] MEDS: TAMSULOSIN HCL 0.4 MG CAP PO SCH (07:23)
[2020-08-27] MEDS: THIAMINE HCL 100 MG TAB PO SCH (07:23)
[2020-08-27] MEDS: dilTIAZem HCL 300 MG CAPCR PO SCH (07:23)
[2020-08-27] MEDS: APIXABAN 5 MG TABLET PO SCH (07:23)
[2020-08-27] MEDS: ATORVASTATIN 40 MG TAB PO SCH (07:24)
[2020-08-27] MEDS: FOLIC ACID 1 MG TAB PO SCH (07:24)
[2020-08-27] MEDS: VENLAFAXINE HCL XR 75 MG CAPXR PO SCH (07:24)
[2020-08-27] MEDS: SENNA 8.6 MG TAB PO SCH (07:25)
[2020-08-27 07:39] LABS: Hematocrit (blood only) 37.5 % (42-52); Hemoglobin 12.7 g/dL (14.0-18.0); Mean Corpuscular Hemoglobin 30.8 pg (25-34); Mean Corpuscular Hgb Conc 33.9 g/dL (32-36); Mean Platelet Volume 11.4 fL (7.4-10.4); Platelet Count 118 K/uL (130-400); RDW Coefficient of Variation 13.8 % (11.5-14.5); RDW Standard Deviation 45.1 fL (36.4-46.3); Red Blood Count 4.12 M/uL (4.7-6.1); White Blood Count 4.21 K/uL (4.8-10.8)
[2020-08-27 08:11] LABS: BUN Creatinine Ratio 12.3 (10-20); Calcium 8.6 mg/dl (8.5-10.1); Creatinine Clr Calc Pharmacy 90.1 ml/min; Est GFR (African American) 95.8 ml/min; Est GFR (Non-African American) 82.7 ml/min; Magnesium 2.4 mg/dl (1.8-2.4); Potassium 3.8 mmol/L (3.5-5.1)
[2020-08-27] MEDS: LOSARTAN POTASSIUM 50 MG TAB PO SCH (08:33)
[2020-08-27] MEDS ORDERED: PANTOprazole 40 MG TAB PO SCH (09:00)
--- NOTE | 2020-08-27 13:57 | Hospitalist Progress Note ---
Date of Service August 27, 2020 Assessment & Plan (1) Vomiting: Presented to ER after depressed episode, drank 10 beers, fell in parking lot, and then in ER had vomiting and distended abdomen. CT A/P on 08/23 with no obstruction. - Resolved at this time. - Returned to normal diet. (2) Urinary retention: PVR was 350 mL -straight cathed for approx 350 mL on 08/25. - Continue Flomax - Continue bladder scans, straight cath prn, Mcdonald if has to be straight cathed repeatedly -> Last bladder scan was 0 mL, so clearly emptying much of the time. (3) Suicidal ideation: Suicidal ideation/schizoaffective disorder/depression. - Consulted psychiatry appreciated - no need for inpat Psych or 1:1 anymore, not truly suicidal. - Continue with venlafaxine, quetiapine (4) Schizoaffective disorder: See above (5) Depression: See above (6) Atrial fibrillation, permanent: With some bradycardia overnight to 30s briefly, 40s but rates mostly 50- 60s. - Continue diltiazem 300 mg p.o. daily with hold parameters - Continue Eliquis (7) Hypertension: BPs controlled today at 150/75. - Continue clonidine 0.1 mg p.o. twice daily, losartan, isosorbide, and diltiazem (8) GERD (gastroesophageal reflux disease): - Continue home PPI (9) Pulmonary hypertension: Not on O2 at home, ECHO here with lower Pulm pressures than previously. Not on diuretics as outpt which is odd as he was just admitted at an outside hospital he reports for CHF? - Previously had been on lasix 40mg daily - Monitor volume status once on a diet again -> Stable today. (10) Chronic diastolic CHF (congestive heart failure): ECHO here with preserved EF. No volume overload. Was just admitted to a hospital in [facility] for presumed CHF (he states his legs were very swollen) and then went to SNF x 1 week, was discharged from SNF 1-2 days prior to admission here. - Restart Lasix as needed (11) Pulmonary nodule: 1.8 cm subpleural nodule within right lower lobe seen on CT a/p. Has a remote h/o smoking. - Needs dedicated chest CT without contrast as an outpt-f/u with PCP (12) DVT prophylaxis: Eliquis Admission and Anticipated Discharge Date Admission Date: August 25, 2020 Subjective Doing overall well today. He reports some "kidney pain" when he urinated the other day, but otherwise, no issues. Reports no fevers/chills, chest pain, shortness of breath, nausea, or vomiting. Physical Exam Constitutional: WD/WN, vitals as above Eyes: EOM intact bilaterally; no conjunctival abnormality ENMT: external ear and nose normal, oropharynx normal Neck: trachea midline, no thyromegaly normal visual inspection Respiratory: normal respiratory effort, lungs clear to auscultation no respiratory distress Cardiovascular: RRR, no murmur, no edema Gastrointestinal (Abdomen): Inspection/Auscultation: abdomen normal to inspection; abdomen not distended Musculoskeletal: no cyanosis or clubbing, extremities motor strength 5/5 Skin: no rashes, warm and dry Neurologic: moves all extremities and awake Psychiatric: Orientation: alert, oriented to person and cooperative Results & Data Results & Data ([facility]) Vital Signs (Past 12 Hours) Vital Signs Temp Pulse Pulse Resp BP Pulse Ox 08/27/20 12:15 36.6 C 76 20 162/86 H 92 08/27/20 08:00 56 L 08/27/20 06:57 36.6 C 62 18 177/108 H 96 08/27/20 02:58 36.3 C L 45 L 16 155/90 H 94 PG Care Time/CCT Total # of Minutes Spent Total Time Spent with Patient: Total time spent is greater than 50% in coordination of care (as documented) at patient's floor/unit and/or counseling patient: Coding Level of Care Code 40860 Subseq Hosp Care Lvl 2 Diagnoses Vomiting R11.10 Urinary retention R33.9 Suicidal ideation R45.851 Schizoaffective disorder F25.9 Schizoaffective disorder type: unspecified Depression F32.9 Atrial fibrillation, permanent I48.21 Hypertension I10 GERD (gastroesophageal reflux disease) K21.9 Pulmonary hypertension I27.20 Chronic diastolic CHF (congestive heart failure) I50.32 Pulmonary nodule R91.1 DVT prophylaxis Z29.9 (1) Schizoaffective disorder Schizoaffective disorder type: unspecified Qualified Code(s): F25.9 - Schizoaffective disorder, unspecified
--- NOTE | 2020-08-27 16:21 | Discharge Summary ---
Date of Service August 27, 2020 Admission HPI Per Admitting Provider The patient is an 79-year-old male with a past medical history including pulmonary hypertension, permanent atrial fibrillation, acute on chronic diastolic CHF, schizoaffective disorder, obesity, hypoxia, noncompliance, GERD, depression and hypertension. He presents with the above symptoms. While in the emergency department, he did have few episodes of nausea and vomiting, and did report abdominal discomfort. Work-up in the emergency department included a CT scan of abdomen pelvis, which suggested ileus versus more likely gastroenteritis, and mild distention of the urinary bladder suggestive of chronic bladder outlet obstruction. Principal Diagnosis Alcohol intoxication Discharge Exam Constitutional WD/WN, vitals as above Eyes EOM intact bilaterally; no conjunctival abnormality ENMT external ear and nose normal, oropharynx normal Neck trachea midline, no thyromegaly normal visual inspection Respiratory normal respiratory effort, lungs clear to auscultation no respiratory distress Cardiovascular RRR, no murmur, no edema Gastrointestinal (Abdomen) Inspection/Auscultation: abdomen normal to inspection; abdomen not distended Musculoskeletal no cyanosis or clubbing, extremities motor strength 5/5 Skin no rashes, warm and dry Neurologic moves all extremities and awake Psychiatric Orientation: alert, oriented to person and cooperative Discharge Data Allergies Allergy/AdvReac Type Severity Reaction Status Date / Time amoxicillin Allergy Mild RASH Verified 08/23/20 22:38 clindamycin Allergy Mild RASH Verified 08/23/20 22:38 latex Allergy Mild RASH Verified 08/23/20 22:38 aspirin Allergy Unknown Unknown Verified 08/23/20 22:38 Penicillins Allergy Unknown RASH FROM Verified 08/23/20 22:38 AMOXICILLIN, BUT PCN IS OK haloperidol AdvReac Intermediate PT STATES Verified 08/23/20 22:38 HE LOCKS UP metronidazole AdvReac Mild ABDOM PAIN Verified 08/23/20 22:38 &CRAMPS olanzapine AdvReac Mild PANCREATITI Verified 08/23/20 22:38 S lithium AdvReac Unknown SENSITIVE Verified 08/23/20 22:38 TO IT BECOMES TOXIC Consultations 08/24/20 02:58 ED Decision to Admit Stat 08/24/20 05:20 Consult Psychiatry Routine Ordered Studies 08/23/20 22:15 CT head/brain wo con Urgent 08/23/20 23:04 CT abd pelvis wo con Urgent Hospital Course (1) Vomiting: Presented to ER after depressed episode, drank 10 beers, fell in parking lot, and then in ER had vomiting and distended abdomen. CT A/P on 08/23 with no obstruction. - Resolved at this time. - Returned to normal diet. Likely alcohol intoxication. (2) Urinary retention: PVR was 350 mL -straight cathed for approx 350 mL on 08/25. - Continue Flomax - Continue bladder scans, straight cath prn, Mcdonald if has to be straight cathed repeatedly -> Last bladder scan was 0 mL, so clearly emptying much of the time. (3) Suicidal ideation: Suicidal ideation/schizoaffective disorder/depression. - Consulted psychiatry appreciated - no need for inpat Psych or 1:1 anymore, not truly suicidal. - Continue with venlafaxine, quetiapine (4) Schizoaffective disorder: See above (5) Depression: See above (6) Atrial fibrillation, permanent: With some bradycardia overnight to 30s briefly, 40s but rates mostly 50- 60s. - Continue diltiazem 300 mg p.o. daily with hold parameters - Continue Eliquis (7) Hypertension: BPs controlled today at 150/75. - Continue clonidine 0.1 mg p.o. twice daily, losartan, isosorbide, and diltiazem (8) GERD (gastroesophageal reflux disease): - Continue home PPI (9) Pulmonary hypertension: Not on O2 at home, ECHO here with lower Pulm pressures than previously. Not on diuretics as outpt which is odd as he was just admitted at an outside hospital he reports for CHF? - Previously had been on lasix 40mg daily - Monitor volume status once on a diet again -> Stable today. (10) Chronic diastolic CHF (congestive heart failure): ECHO here with preserved EF. No volume overload. Was just admitted to a hospital in [facility] for presumed CHF (he states his legs were very swollen) and then went to SNF x 1 week, was discharged from SNF 1-2 days prior to admission here. - Restart Lasix as needed -> Not needed while inpatient. Difficult to decide what to do here as likely his diet and alcohol intake play a significant role in this. While in the hospital, his weight remained steady and in line with his prior weights going all the way back to 2019. - Did not discharge on Lasix given the fact that I saw no indication of hypervolemia while here. (11) Pulmonary nodule: 1.8 cm subpleural nodule within right lower lobe seen on CT a/p. Has a remote h/o smoking. - Needs dedicated chest CT without contrast as an outpt-f/u with PCP (12) DVT prophylaxis: Eliquis Total Time Total Time Spent Total Time Spent (In Minutes): 35 Discharge Plan Discharge Items Patient Disposition: Home - Self-Care Reason For Visit: GASTROENTERITIS, N/V, HYPOKALEMIA Discharge Diagnosis: Gastroenteritis Activity: Resume your previous activity Non-emergency contact: Primary Care Provider Call non-emergency contact if: your symptoms worsen Follow-up/Referrals: PCP,NO [Primary Care Provider] - Diet: Heart Healthy Addtl Attending Provider Instructions: Please avoid alcohol intake. Your GI symptoms have resolved with stopping drinking, and I believe this is the biggest detriment to your health. Pending Studies at Discharge: No Stand-Alone Forms: My [facility] [employer], Smoking Cessation Medications and DC Order Prescriptions: Continued losartan 50 mg tablet 50 mg PO QAM RF: 0 cyanocobalamin (vitamin B-12) 1,000 mcg tablet 1,000 mcg PO DAILY RF: 0 Eliquis 5 mg tablet 5 mg PO BID RF: 0 omeprazole 20 mg capsule,delayed release(DR/EC) 20 mg PO BID RF: 0 isosorbide mononitrate 30 mg tablet extended release 24 hr 90 mg PO DAILY RF: 0 venlafaxine 75 mg capsule,extended release 24hr 225 mg PO QAM RF: 0 quetiapine 400 mg tablet 400 mg PO ONCE PM RF: 0 pantoprazole 40 mg Tablet,Delayed Release (Dr/Ec) 40 mg PO DAILY RF: 0 loratadine 10 mg Tablet 10 mg PO DAILY RF: 0 clonidine HCl 0.1 mg Tablet 0.1 mg PO BID RF: 0 atorvastatin 40 mg Tablet 40 mg PO DAILY RF: 0 multivitamin,tx-minerals Tablet 1 tab PO DAILY RF: 0 tamsulosin 0.4 mg Capsule 0.4 mg PO DAILY RF: 0 sennosides-docusate sodium [Stimulant Laxative Plus] 8.6-50 mg Tablet 2 tab-cap PO BID RF: 0 docusate sodium [DOK] 100 mg Capsule 100 mg PO HS RF: 0 diltiazem HCl [Cartia XT] 300 mg Capsule,Extended Release 24hr 300 mg PO DAILY RF: 0 albuterol sulfate 90 mcg/actuation HFA aerosol inhaler 90 mcg INHALATION Q46H RF: 0 Discontinued diltiazem HCl 360 mg capsule,extended release 24hr 360 mg PO DAILY RF: 0 Discharge Orders: Discharge Order (Routine); Ordered 08/27/20 Ordered By: Arnold Morales Admission Data Admit Date/Time: 08/25/20 10:52 Attending Provider: Arnold Morales Admit Provider: Fernandez Gregory Primary Care Provider: PCP,NO Other Providers: Sakshi Pratt ; Dr Carlin ; Elvie Jones ; Tarik Mcnamara ; Arnold Morales Other Interventions: Discharge Summary Assessment (RN) Last Done: 08/27/20 14:15 Coding Level of Care Code D/C Day Management >30 mins Diagnoses Vomiting R11.10 Urinary retention R33.9 Suicidal ideation R45.851 Schizoaffective disorder F25.9 Schizoaffective disorder type: unspecified Depression F32.9 Atrial fibrillation, permanent I48.21 Hypertension I10 GERD (gastroesophageal reflux disease) K21.9 Pulmonary hypertension I27.20 Chronic diastolic CHF (congestive heart failure) I50.32 Pulmonary nodule R91.1 DVT prophylaxis Z29.9
== END 2020-08-27 15:15 | disposition home or self-care (01) | DRG 392 ==
LOC: ED 21:20 → 2S 21:20 → SUATTDRO 08-24 03:30 → 2S 08-24 05:05 → SUATTDRO 08-25 10:52 → 2N 08-25 18:26